=== PATIENT | male | born 1965 | race Caucasian/White ===

== ENCOUNTER 2021-02-10 11:54 | Inpatient (IN) | payer OTHER, BC ==
[~2021-02-10] VITALS: Ht 180.3 cm; Wt 125.0 kg
[~2021-02-10 11:54] MED LIST: CRUTCH2 USE; HYDACE5 PO; RXHYDACE PO
[2021-02-10] MEDS ORDERED: LOSARTAN-HCTZ1 EAC5 PO (12:50)
[2021-02-10] MEDS ORDERED: LEVSOD75 PO (12:50)
[2021-02-10 12:56] LABS: BASOPHILS ABSOLUTE AUTO 0.03 K/mm3 (0.00-0.23); BASOPHILS PERCENT AUTO 0 % (0-2); Base Excess Venous 1.2 mmol/L; Bicarbonate Venous 25.4 mmol/L (24.0-30.0); EOSINOPHILS PERCENT AUTO 0 % (0-6); Hematocrit 44.7 % (37.0-53.0); Hemoglobin 15.4 g/dL (13.5-17.5); IMMATURE GRAN ABSOLUTE AUTO 0.07 K/mm3 (0.00-0.10); IMMATURE GRAN PERCENT AUTO 1 % (0-1); LYMPHOCYTES ABSOLUTE AUTO 0.48 K/mm3 (0.84-5.20); LYMPHOCYTES PERCENT AUTO 5 % (21-46); MONOCYTES ABSOLUTE AUTO 0.34 K/mm3 (0.16-1.47); MONOCYTES PERCENT AUTO 3 % (4-13); Mean Corpuscular HGB 28.4 pg (26.0-34.0); Mean Corpuscular HGB Conc 34.5 g/dL (31.5-36.5); Mean Corpuscular Volume 82 fL (80-100); Mean Platelet Volume 10.3 fL (9.1-12.4); NEUTROPHILS ABSOLUTE AUTO 9.83 K/mm3 (1.96-9.15); NEUTROPHILS PERCENT AUTO 91 % (41-73); PCO2 Venous 35.2 mmHg (38-42); PO2 Venous 44.8 mmHg (38-42); Platelet Count 296 K/mm3 (150-400); RDW Coefficient Variation 13.4 % (11.7-14.2); RDW Standard Deviation 40.5 fL (35.1-46.3); Red Blood Cell Count 5.43 M/mm3 (4.30-5.90); White Blood Cell Count 10.75 K/mm3 (4.00-11.30); pH Blood Venous 7.46 (7.34-7.37)
[2021-02-10 13:24] LABS: Alanine Aminotransfer (ALT/SGP 30 U/L (12-78); Albumin, Blood 2.9 g/dL (3.4-5.0); Albumin/Globulin Ratio 0.6 (0.8-1.8); Alk Phos 68 U/L (50-136); Anion Gap 9 mmol/L (6-16); Aspartate Aminotrans (AST/SGOT 43 U/L (12-37); Bilirubin, Total 0.8 mg/dL (0.1-1.0); Blood Urea Nitrogen 19 mg/dL (8-24); Bun/Creatinine Ratio 19.4 (12.0-20.0); CO2, Blood 23 mmol/L (21-32); Calcium, Blood 8.2 mg/dL (8.5-10.1); Chloride, Blood 102 mmol/L (98-108); Creatinine, Blood 0.98 mg/dL (0.60-1.20); Globulin, Blood 4.8 g/dL (2.2-4.0); Glomerular Filtration Rate >60 (60-); Glucose, Blood 124 mg/dL (70-99); Potassium, Blood 3.8 mmol/L (3.5-5.5); Sodium, Blood 134 mmol/L (136-145); Total Protein, Blood 7.7 g/dL (6.4-8.2); Troponin I <0.015 ng/mL (0.000-0.040)
[2021-02-10 15:15] LABS: SARS-Cov-2 (COVID-19) PCR, MMC POSITIVE (NEGATIVE)
[2021-02-10] MEDS ORDERED: Flomax0.4 MG PO (16:35)
--- NOTE | 2021-02-10 19:25 | NUR ---
SHIFT SUMMARY ED ADMIT THIS EVENING. PATIENT CAME TO FLOOR ON NONREBREATHER MASK. PATIENT SATS IN LOW 80'S UPON ARRRIVAL. MAINTAINING OXYGEN SATURATION ABOVE 90% ON CPAP SETTING ON V60. SETTING 8 cmH20 AN 65% FI02. PATIENT LYING ON SIDE. SETTLED INTO ROOM. PATIENT REPORTS CPAP MASK DIFFICULT TO TOLERTATE. PATIENT EDUCATED ON BENEFITS OF CPAP AND RISKS OF REMOVING MASK WITHOUT ASSISTANCE.
[2021-02-11 02:28] LABS: BASOPHILS ABSOLUTE AUTO 0.03 K/mm3 (0.00-0.23); BASOPHILS PERCENT AUTO 0 % (0-2); EOSINOPHILS PERCENT AUTO 0 % (0-6); Hematocrit 43.3 % (37.0-53.0); Hemoglobin 14.7 g/dL (13.5-17.5); IMMATURE GRAN ABSOLUTE AUTO 0.08 K/mm3 (0.00-0.10); IMMATURE GRAN PERCENT AUTO 1 % (0-1); LYMPHOCYTES ABSOLUTE AUTO 0.47 K/mm3 (0.84-5.20); LYMPHOCYTES PERCENT AUTO 4 % (21-46); MONOCYTES ABSOLUTE AUTO 0.49 K/mm3 (0.16-1.47); MONOCYTES PERCENT AUTO 4 % (4-13); Mean Corpuscular HGB 28.1 pg (26.0-34.0); Mean Corpuscular HGB Conc 33.9 g/dL (31.5-36.5); Mean Corpuscular Volume 83 fL (80-100); NEUTROPHILS ABSOLUTE AUTO 10.52 K/mm3 (1.96-9.15); NEUTROPHILS PERCENT AUTO 91 % (41-73); Platelet Count 291 K/mm3 (150-400); RDW Coefficient Variation 13.5 % (11.7-14.2); RDW Standard Deviation 41.1 fL (35.1-46.3); Red Blood Cell Count 5.24 M/mm3 (4.30-5.90); White Blood Cell Count 11.59 K/mm3 (4.00-11.30)
[2021-02-11 02:46] LABS: Alanine Aminotransfer (ALT/SGP 29 U/L (12-78); Albumin, Blood 2.6 g/dL (3.4-5.0); Albumin/Globulin Ratio 0.6 (0.8-1.8); Alk Phos 70 U/L (50-136); Anion Gap 6 mmol/L (6-16); Aspartate Aminotrans (AST/SGOT 51 U/L (12-37); Bilirubin, Total 0.7 mg/dL (0.1-1.0); Blood Urea Nitrogen 24 mg/dL (8-24); Bun/Creatinine Ratio 24.4 (12.0-20.0); CO2, Blood 25 mmol/L (21-32); Calcium, Blood 8.1 mg/dL (8.5-10.1); Chloride, Blood 104 mmol/L (98-108); Creatinine, Blood 0.99 mg/dL (0.60-1.20); Globulin, Blood 4.5 g/dL (2.2-4.0); Glomerular Filtration Rate >60 (60-); Glucose, Blood 122 mg/dL (70-99); Potassium, Blood 3.6 mmol/L (3.5-5.5); Sodium, Blood 135 mmol/L (136-145); Total Protein, Blood 7.1 g/dL (6.4-8.2)
--- NOTE | 2021-02-11 03:57 | NUR ---
GLOBAL LOGISTICS ANALYST SUMMARY PT A/O X4, SLEPT WELL TONIGHT. DENIES PAIN. CONTINUES TO BE ON CPAP WIH 65% FIO2 SATTINGIN THE LOW 90'S. NO ACUTE CHANGES, CALL LIGHT WITHIN REACH. WILL CONTINUE TO MOINTOR.
--- NOTE | 2021-02-11 12:52 | NUR ---
Patient is lying on his side. Patient tells me that he is discouraged by the fact that he is "down because of this virus and having to stay in the hospital." He shares that he is worried about his , his work and his confucianism (patient attends [employer]). We talk about taking time to heal and recover and the good things in his life. I provide therapeutic listening and prayer. Patient responds well and show signs of an elevated mood and increased peace. I will continue to remain available to patient and family.
--- NOTE | 2021-02-11 17:25 | NUR ---
SHIFT SUMMARY pt remains alert and oriented, denies pain, however still experiencing dyspnea with rest and not able to tolerate activity. Pt has been prone most of the afternoon with biox sats 94% on 85%FiO2 on cpap. Pt desats to high 70s with activity. Pt able to make needs known. updated and requesting updates after every shift.
--- NOTE | 2021-02-12 04:19 | NUR ---
VIDEO NETWORK ENGINEER SUMMARY PT A/O X4, SLEPT WELL TONIGHT. DENIES PAIN. WEARS CPAP WITH 85% FIO2 SATTING IN THE LOW 90'S. PT BEEN PRONING ALL NIGHT. USES URINAL INDEPENDENTLY. DESATS QUICK WITH ACTIVITY. CALL LIGHT WITHIN REACH, WILL CONTINUE TO MONITOR.
[2021-02-12 05:26] LABS: BASOPHILS ABSOLUTE AUTO 0.03 K/mm3 (0.00-0.23); BASOPHILS PERCENT AUTO 0 % (0-2); EOSINOPHILS PERCENT AUTO 0 % (0-6); Hemoglobin 14.9 g/dL (13.5-17.5); IMMATURE GRAN ABSOLUTE AUTO 0.16 K/mm3 (0.00-0.10); IMMATURE GRAN PERCENT AUTO 1 % (0-1); LYMPHOCYTES PERCENT AUTO 4 % (21-46); MONOCYTES ABSOLUTE AUTO 0.73 K/mm3 (0.16-1.47); MONOCYTES PERCENT AUTO 5 % (4-13); Mean Corpuscular HGB Conc 33.1 g/dL (31.5-36.5); Mean Corpuscular Volume 84 fL (80-100); Mean Platelet Volume 10.5 fL (9.1-12.4); NEUTROPHILS ABSOLUTE AUTO 13.69 K/mm3 (1.96-9.15); NEUTROPHILS PERCENT AUTO 90 % (41-73); Platelet Count 346 K/mm3 (150-400); RDW Coefficient Variation 13.4 % (11.7-14.2); RDW Standard Deviation 41.6 fL (35.1-46.3); Red Blood Cell Count 5.33 M/mm3 (4.30-5.90); White Blood Cell Count 15.21 K/mm3 (4.00-11.30)
[2021-02-12 06:24] LABS: Alanine Aminotransfer (ALT/SGP 39 U/L (12-78); Alk Phos 79 U/L (50-136); Anion Gap 6 mmol/L (6-16); Aspartate Aminotrans (AST/SGOT 47 U/L (12-37); Bilirubin, Total 0.6 mg/dL (0.1-1.0); Blood Urea Nitrogen 32 mg/dL (8-24); Bun/Creatinine Ratio 37.8 (12.0-20.0); CO2, Blood 25 mmol/L (21-32); Calcium, Blood 8.1 mg/dL (8.5-10.1); Chloride, Blood 106 mmol/L (98-108); Creatinine, Blood 0.85 mg/dL (0.60-1.20); Glomerular Filtration Rate >60 (60-); Glucose, Blood 134 mg/dL (70-99); Potassium, Blood 3.9 mmol/L (3.5-5.5); Sodium, Blood 137 mmol/L (136-145); Total Protein, Blood 7.2 g/dL (6.4-8.2)
[2021-02-12 06:31] LABS: Albumin, Blood 2.3 g/dL (3.4-5.0); Albumin/Globulin Ratio 0.5 (0.8-1.8); Globulin, Blood 4.9 g/dL (2.2-4.0)
--- NOTE | 2021-02-12 18:35 | NUR ---
PT IS AO X 4, PT IS COVID POSITIVE, PT IS ON CPAP 75% FIO2 SAT IN THE HIGH 90'S THOUGHOUT SHIFT, PT BEEN PRONING OR STAYING ON THE RIGHT SIDE DURING THE DAY,PT HAVE NS RUNING, PT IS IN BED, BED IN LOW POSTION,CALL LIGHT WITHIN REACH WILL CONTINUE TO MONITOR.
[2021-02-13 04:50] LABS: BASOPHILS ABSOLUTE AUTO 0.02 K/mm3 (0.00-0.23); BASOPHILS PERCENT AUTO 0 % (0-2); EOSINOPHILS PERCENT AUTO 0 % (0-6); Hematocrit 40.5 % (37.0-53.0); Hemoglobin 13.6 g/dL (13.5-17.5); IMMATURE GRAN ABSOLUTE AUTO 0.11 K/mm3 (0.00-0.10); IMMATURE GRAN PERCENT AUTO 1 % (0-1); LYMPHOCYTES ABSOLUTE AUTO 0.44 K/mm3 (0.84-5.20); LYMPHOCYTES PERCENT AUTO 3 % (21-46); MONOCYTES ABSOLUTE AUTO 0.68 K/mm3 (0.16-1.47); MONOCYTES PERCENT AUTO 4 % (4-13); Mean Corpuscular HGB Conc 33.6 g/dL (31.5-36.5); Mean Corpuscular Volume 84 fL (80-100); Mean Platelet Volume 10.6 fL (9.1-12.4); NEUTROPHILS ABSOLUTE AUTO 15.37 K/mm3 (1.96-9.15); NEUTROPHILS PERCENT AUTO 93 % (41-73); Platelet Count 389 K/mm3 (150-400); RDW Coefficient Variation 13.3 % (11.7-14.2); RDW Standard Deviation 41.1 fL (35.1-46.3); Red Blood Cell Count 4.85 M/mm3 (4.30-5.90); White Blood Cell Count 16.62 K/mm3 (4.00-11.30)
[2021-02-13 05:14] LABS: Alanine Aminotransfer (ALT/SGP 40 U/L (12-78); Albumin, Blood 2.2 g/dL (3.4-5.0); Albumin/Globulin Ratio 0.5 (0.8-1.8); Alk Phos 72 U/L (50-136); Anion Gap 5 mmol/L (6-16); Aspartate Aminotrans (AST/SGOT 43 U/L (12-37); Bilirubin, Total 0.8 mg/dL (0.1-1.0); Blood Urea Nitrogen 32 mg/dL (8-24); Bun/Creatinine Ratio 37.6 (12.0-20.0); CO2, Blood 27 mmol/L (21-32); Calcium, Blood 8.1 mg/dL (8.5-10.1); Chloride, Blood 106 mmol/L (98-108); Creatinine, Blood 0.85 mg/dL (0.60-1.20); Globulin, Blood 4.1 g/dL (2.2-4.0); Glomerular Filtration Rate >60 (60-); Glucose, Blood 127 mg/dL (70-99); Sodium, Blood 138 mmol/L (136-145); Total Protein, Blood 6.3 g/dL (6.4-8.2)
--- NOTE | 2021-02-13 05:32 | NUR ---
PT RESTING IN BED MAKING NO COMPLAINTS AT THIS TIME. REMAINS ALERT AND ORIENTED X4, ANXIOUS, ON CPAP WITH SATS 90 AND ABOVE. PT STATES HE HAS NOT ATE IN A FEW DAYS OTHER THAN A FEW CRACKERS TWO DAYS AGO. REFUSED HELP WITH SNACKS HE WAS WORRIED ABOUT TAKING OF HIS MASK FOR TOO LONG. NS RUNNING AND WNL. PT IS DRINKNING FLUIDS. WILL CONTINUE TO MONITOR.
--- NOTE | 2021-02-13 17:25 | NUR ---
SHIFT SUMMARY 55 YR MALE ADMITTED WIHT COVID 19. PT ON CPAP SATS>90. TRIAL PT ON AIRVOW AT 40L/85% AND PT SATS DROPPED TO LOW 80'S, RESUMED CPAP AND PT RECOVERED TO SATS>90. REVIEWED WITH MD AND NEW ORDERS TO INCREASE DECADRON RECIEVED TODAY. PT HAS BEEN ENCOURAGED TO LAY PRONE AND HAS DONE THAT MOST OF TODAY, PT TOLERATES FAIRLY BUT AGREES TO REMAIN PRONE. SPOKE WITH PTS TODAY TO OFFER UPDATE AND PAST MESSAGE ON TO MD WIFES REQUEST TO SPEAK WITH MD. NO OTHER ACUTE CHANGES THIS SHIFT
--- NOTE | 2021-02-14 05:14 | NUR ---
0400 PT TRANSFERED TO PCU. PT REPORT GIVEN TO LUIS ACHARYA RN.
--- NOTE | 2021-02-14 05:20 | NUR ---
MED FLOOR SUMMARY PT WAS DOING WELL UNTIL ATTEMPTED TO USE BED SIDE COMMODE. PT REMAINED ON CPAP WHILE USING COMMODE. PT BECAME SEVERELY SHORT OF BREATH AND ANXIETY INCREASED. PT RESP. RATE WAS NOTED TO BE IN 50'S. PT WAS GIVEN ORDERED ATIVAN WITH LITTLE RELIEF. DR BASILIO CALLED AND HE ORDERED PT MORPHINE AND ADDITIONAL ATIVAN. DR BASILIO ORDERED TO TRANSFER PT IF NEW MEDS DO NOT HELP. DR BASILIO STATED TO HAVE PT PLACED ON PRECEDEX. PT WAS TX ORDERED AND RESPONDED WELL FOR SHORT PERIOD. RT WAS CALLED AND ASSESSED PT. RT AGREED THAT PT NEEDED TO BE TRANSFERRED. PT TRANSFERED TO PCU 13 WITH RT AND SECOND RN.
[2021-02-14 05:31] LABS: Source, Urine Catheter
--- NOTE | 2021-02-14 05:31 | NUR ---
0515 PT CALLED AND UPDATED ON PT STATUS. INFORMED OF PT BEING MOVED TO [facility].
[2021-02-14 05:37] LABS: Appearance, Urine Clear (Clear); Bilirubin, Urine Neg (Neg); Blood, Urine Neg (Neg); Color, Urine Amber (P-Yellow); Glucose Qualitative, Urine Neg (Neg); Ketones, Urine Neg (Neg); Leukocyte Esterase, Urine 1+ (Neg); Nitrite, Urine Neg (Neg); Protein, Urine 2+ (Neg); Specific Gravity, Urine 1.015 (1.003-1.022); Urobilinogen, Urine NORM (Normal)
[2021-02-14 05:58] LABS: Bacteria Few /hpf; Red Blood Cells, Urine 0-2 /hpf (0-2); Squamous Epithelial Cells Not Seen /hpf (Few); White Blood Cells, Urine 0-2 /hpf (0-5)
[2021-02-14 06:00] LABS: BASOPHILS ABSOLUTE AUTO 0.02 K/mm3 (0.00-0.23); BASOPHILS PERCENT AUTO 0 % (0-2); EOSINOPHILS PERCENT AUTO 0 % (0-6); Hematocrit 40.7 % (37.0-53.0); Hemoglobin 13.8 g/dL (13.5-17.5); IMMATURE GRAN ABSOLUTE AUTO 0.13 K/mm3 (0.00-0.10); IMMATURE GRAN PERCENT AUTO 1 % (0-1); LYMPHOCYTES ABSOLUTE AUTO 0.26 K/mm3 (0.84-5.20); LYMPHOCYTES PERCENT AUTO 2 % (21-46); MONOCYTES PERCENT AUTO 4 % (4-13); Mean Corpuscular HGB 28.5 pg (26.0-34.0); Mean Corpuscular HGB Conc 33.9 g/dL (31.5-36.5); Mean Corpuscular Volume 84 fL (80-100); Mean Platelet Volume 10.5 fL (9.1-12.4); NEUTROPHILS ABSOLUTE AUTO 13.57 K/mm3 (1.96-9.15); NEUTROPHILS PERCENT AUTO 94 % (41-73); Platelet Count 420 K/mm3 (150-400); RDW Coefficient Variation 13.5 % (11.7-14.2); RDW Standard Deviation 42.2 fL (35.1-46.3); Red Blood Cell Count 4.85 M/mm3 (4.30-5.90); White Blood Cell Count 14.48 K/mm3 (4.00-11.30)
[2021-02-14 06:16] LABS: Alanine Aminotransfer (ALT/SGP 44 U/L (12-78); Albumin, Blood 2.1 g/dL (3.4-5.0); Albumin/Globulin Ratio 0.5 (0.8-1.8); Alk Phos 74 U/L (50-136); Anion Gap 5 mmol/L (6-16); Aspartate Aminotrans (AST/SGOT 45 U/L (12-37); Bilirubin, Total 0.9 mg/dL (0.1-1.0); Blood Urea Nitrogen 19 mg/dL (8-24); CO2, Blood 25 mmol/L (21-32); Calcium, Blood 8.1 mg/dL (8.5-10.1); Chloride, Blood 112 mmol/L (98-108); Creatinine, Blood 0.66 mg/dL (0.60-1.20); Globulin, Blood 4.1 g/dL (2.2-4.0); Glomerular Filtration Rate >60 (60-); Glucose, Blood 137 mg/dL (70-99); Potassium, Blood 4.3 mmol/L (3.5-5.5); Sodium, Blood 142 mmol/L (136-145); Total Protein, Blood 6.2 g/dL (6.4-8.2)
--- NOTE | 2021-02-14 07:08 | NUR ---
TRANSFER/SHIFT SUMMARY PT TRANSFERED TO PCU 13 AN ICU STATUS PT @ APPROX 0415. PT ALERT AND ORIENTED TO SELF, LOCATION, SITUATION AND FOLLOWING COMMANDS. PT ON CPAP 14 FiO2 85% WITH SpO2 READING 84, INCREASED FiO2 TO 100% WITH IMPROVEMENT TO 86%, RT NOTIFIED AND CHANGED CPAP SETTINGS TO 17, FiO2 REMAINS 100% WITH O2 SATURATIONS OF 87-89%. RESPIRATORY RATE INITIALLY 55-60, PRECEDEX GTT INITITIATED AND RATE DECREASED TO 40-45. AZAR PLACED AND SPECIMEN SENT TO LAB. PT ABLE TO TURN SELF IN BED. UPDATED DR BASILIO ON PTS STATUS, NEW CONSULT FOR PULMONOLOGY.
[2021-02-14 10:25] LABS: PCO2 Arterial 35.3 mmHg (35-45); PO2 Arterial 50.9 mmHg (80-100); pH Blood Arterial 7.46 (7.35-7.45)
--- NOTE | 2021-02-14 11:14 | NUR ---
TRANSFER DR. GLOVER CAME AND SAW PT AT THE BEDSIDE. PT CONTINUES TO SAT 86-90 ON CPAP PRESSURE OF 17 FIO2 100%. DECISION MADE TO MOVE PT TO ICU 1. REPORT CALLED TO BRIANNA LAWS. PT TRANSFERRED WITH RT AND 2 RNS. PT TOLERATED TRANSFER WELL. PT'S [place] CALLED AND GIVEN UPDATE ON TRANSFER AND PLAN TO INTUBATE PT IN ICU.
--- NOTE | 2021-02-14 12:05 | NUR ---
*PT EMERGENTLY TRANSFERED TO 1CU 1 @1050.* RR 50'S-PT ORTHOPNEIC AND VERY DYSPNEIC. ABG DONE PRIOR TO TRANSFER TO ICU-DR. GLOVER REVIEWED RESULTS. PT HYPOXIC ON CPAP-FIO2 !00% 1104: MED WITH ETOMIDATE 20 MG IVP X 1 IN PREP FOR RSI. 1106: PT INTUBATED WITH 8.0 ETT/26@ TEETH-PROPOFOL DRIP INITIATED @ 50 MCG/KG/MIN. 1108:PT ASYNCHRONOUS WITH VENT-MED WITH ROCURONIUM 20 MG IVP X 1. PROPOFOL 4 CC IVP X1 GIVEN BY DR. GLOVER. 1109: PT STILL DIFFICULT TO VENTILATE-MED WITH VERSED 4 MG IVP X 1. VENT: AC 16, TV 470, PEEP 18, FIO2 100% 1125: PT CONTINUES TO BE ASYNCHRONOUS WITH VENT-MED WITH ATIVAM 2MG IVP X 1. 1133: PT STILL NOT SYNCHRONOUS WITH VENT-MED WITH FENTANYL [address] GLOVER PREPARING TO PLACE CENTAL LINE. 1150: PEAK PRESSURES 50'S. PT MED WITH ROCURONIUM 40 MCG IVP X 1. 1151: PT MED WITH VERSED 2 MG IVP X1. 1200: ROCURONIUM STARTED @ 5 MCG/KG/MIN. TO4 0/4 PRIOR TO INITIATION-DUE TO SECOND DOSE OF PARALYLTIC. BIS MONITOR PLACED. 1220: ETT, RIJ CENTRAL LINE, AND OGT PLACEMENT CONFIRMED BY CXR-PLAN TO PRONE LAURA.
--- NOTE | 2021-02-14 14:31 | NUR ---
FENTANYL GTT STARTED AT 25MCG/HR PER DR GLOVER. RAINA GTT AT 5MCG, TO4 REMAINS 0/4. PRECEDEX INCREASED TO 0.4MCG, PROPOFOL DECREASED TO 70MCG, WILL CONT TO DECREASE TOLERATED. BIS 36.
[2021-02-14 15:59] LABS: PO2 Arterial 156 mmHg (80-100)
[2021-02-14 16:00] LABS: PCO2 Arterial 71 mmHg (35-45); pH Blood Arterial 7.21 (7.35-7.45)
--- NOTE | 2021-02-14 19:46 | NUR ---
Assumed care. Report recieved from tonyakjhoana RN. Pt proned in bed on ventilator, paralyzed and sedated. Ventilator settings: AC/VC 20/TV470/PEEP16/70% Fi02. OG tube in place, draining to low intermittent suction. Pt has R/central line, R/ac IV and R/hand IV. Pump settings are as follows: Rocuronium at 5 mcg/kg/min, propofol at 70 mcg/kg/min, Precedex at 0.4 mcg/kg/hr, Fentanyl STUCCO PLASTERER 25 mcg/hr, NS 100 ml/hr. Asher catheter in place, draining jacki urine w/pink sediment. No acute needs noted at this time, will continue to monitor.
[2021-02-15 04:18] LABS: Hematocrit 40.8 % (37.0-53.0); Mean Corpuscular HGB 28.3 pg (26.0-34.0); Mean Corpuscular HGB Conc 31.9 g/dL (31.5-36.5); Mean Platelet Volume 10.4 fL (9.1-12.4); Platelet Count 350 K/mm3 (150-400); RDW Coefficient Variation 14.1 % (11.7-14.2); RDW Standard Deviation 45.7 fL (35.1-46.3); Red Blood Cell Count 4.59 M/mm3 (4.30-5.90); White Blood Cell Count 10.64 K/mm3 (4.00-11.30)
[2021-02-15 04:20] LABS: Mean Corpuscular Volume 89 fL (80-100)
[2021-02-15 04:36] LABS: Alanine Aminotransfer (ALT/SGP 34 U/L (12-78); Albumin, Blood 1.8 g/dL (3.4-5.0); Albumin/Globulin Ratio 0.4 (0.8-1.8); Alk Phos 60 U/L (50-136); Anion Gap 1 mmol/L (6-16); Aspartate Aminotrans (AST/SGOT 22 U/L (12-37); Bilirubin, Total 0.6 mg/dL (0.1-1.0); Blood Urea Nitrogen 17 mg/dL (8-24); Bun/Creatinine Ratio 24.5 (12.0-20.0); CO2, Blood 29 mmol/L (21-32); Calcium, Blood 7.8 mg/dL (8.5-10.1); Chloride, Blood 113 mmol/L (98-108); Creatinine, Blood 0.69 mg/dL (0.60-1.20); Glomerular Filtration Rate >60 (60-); Glucose, Blood 220 mg/dL (70-99); Potassium, Blood 4.9 mmol/L (3.5-5.5); Sodium, Blood 143 mmol/L (136-145); Total Protein, Blood 5.8 g/dL (6.4-8.2)
[2021-02-15 05:37] LABS: PCO2 Arterial 55.3 mmHg (35-45); PO2 Arterial 67.6 mmHg (80-100); pH Blood Arterial 7.33 (7.35-7.45)
--- NOTE | 2021-02-15 06:13 | NUR ---
Shift summary. Pt continues on ventilator: AC/VC 20/TV470/peep16/Fi02 50%. OG tube in place. R/cental IJ, left AC IV, pump settings: Rocuronium 5 mcg/kg/min, propofol 60 mcg/kg/min, precedex 0.4 mcg/kg/hr, fentanyl office executive 25 mcg/hr, NS 100 ml/hr. Asher catheter in place, draining dark jacki urine with pink sediment. Patient maintained stable vitals throughout shift, propofol titrated down from 70 to 60. Fi02 titrated down to 50%, 02 sats maintained above 90%. See shift assessment for details. Will continue to monitor and report off to dayshift RN.
--- NOTE | 2021-02-15 07:34 | NUR ---
CARE OF PT ASSUMED AT 070. PT SEDATED ON PROPOFOL AT 60MCG, PRECEDEX AT 0.4MCG, AND FENT GTT AT 25MCG/HR FOR MECH VENT WAYNE. BIS READING 40'S. PT PARALYZED W RAINA AT 5MCG/KG/MIN, TO4 0/4. PT IS SYNCHONIZED W VENT, NO BREATHING OVER VENT, ABSENT COUGH, GAG. AC/VC20,470,50%,16.
--- NOTE | 2021-02-15 11:08 | NUR ---
PT'S GIVEN UPDATE VIA PHONE.
--- NOTE | 2021-02-15 14:03 | NUR ---
TROPONIN WNL, EKG COMPLETED, SHOWS SINUS BELLA.
--- NOTE | 2021-02-15 18:54 | NUR ---
review of pt with nursing will update tomorrow and do sofa score.
--- NOTE | 2021-02-15 19:02 | NUR ---
NS DECREASED TO 50, NO OTHER CHANGES TO GTT'S. NO CHANGES TO VENT. SATS 92%. DR DONIS TO UPDATE .
--- NOTE | 2021-02-15 21:39 | NUR ---
Assumed care. Report recieved from robel REED. Pt continues on ventilator, settings: AC/VC 20, TV470, peep16 50% Fi02. OG tube in place, connected to low intermittent suction. R/IJ central line in place, IV access R/AC. IV pump settings: Rocuronium 5 mcg/kg/min, propofol 60 mcg/kg/min, precedex 0.4 mcg/kg/hr, fentanty banking services advisor 25 mcg/hr, NS 50 ml/hr. Asher catheter in place, draining dark urine with pink sediment. No acute needs noted at this time, will continue to monitor.
[2021-02-16 03:56] LABS: BASOPHILS ABSOLUTE AUTO 0.02 K/mm3 (0.00-0.23); BASOPHILS PERCENT AUTO 0 % (0-2); EOSINOPHILS PERCENT AUTO 0 % (0-6); Hematocrit 40.3 % (37.0-53.0); Hemoglobin 12.7 g/dL (13.5-17.5); IMMATURE GRAN ABSOLUTE AUTO 0.12 K/mm3 (0.00-0.10); IMMATURE GRAN PERCENT AUTO 2 % (0-1); LYMPHOCYTES ABSOLUTE AUTO 0.27 K/mm3 (0.84-5.20); LYMPHOCYTES PERCENT AUTO 3 % (21-46); MONOCYTES ABSOLUTE AUTO 0.27 K/mm3 (0.16-1.47); MONOCYTES PERCENT AUTO 3 % (4-13); Mean Corpuscular HGB 27.9 pg (26.0-34.0); Mean Corpuscular HGB Conc 31.5 g/dL (31.5-36.5); Mean Corpuscular Volume 88 fL (80-100); Mean Platelet Volume 10.3 fL (9.1-12.4); NEUTROPHILS ABSOLUTE AUTO 7.41 K/mm3 (1.96-9.15); NEUTROPHILS PERCENT AUTO 92 % (41-73); Platelet Count 383 K/mm3 (150-400); RDW Coefficient Variation 14.4 % (11.7-14.2); RDW Standard Deviation 46.5 fL (35.1-46.3); Red Blood Cell Count 4.56 M/mm3 (4.30-5.90); White Blood Cell Count 8.09 K/mm3 (4.00-11.30)
[2021-02-16 04:20] LABS: Alanine Aminotransfer (ALT/SGP 30 U/L (12-78); Albumin, Blood 1.8 g/dL (3.4-5.0); Albumin/Globulin Ratio 0.5 (0.8-1.8); Alk Phos 53 U/L (50-136); Anion Gap 0 mmol/L (6-16); Aspartate Aminotrans (AST/SGOT 15 U/L (12-37); Bilirubin, Total 0.4 mg/dL (0.1-1.0); Blood Urea Nitrogen 16 mg/dL (8-24); CO2, Blood 30 mmol/L (21-32); Chloride, Blood 113 mmol/L (98-108); Creatinine, Blood 0.67 mg/dL (0.60-1.20); Globulin, Blood 3.7 g/dL (2.2-4.0); Glomerular Filtration Rate >60 (60-); Glucose, Blood 175 mg/dL (70-99); Phosphorus, Blood 2.4 mg/dL (2.5-4.9); Potassium, Blood 4.6 mmol/L (3.5-5.5); Sodium, Blood 143 mmol/L (136-145); Total Protein, Blood 5.5 g/dL (6.4-8.2)
--- NOTE | 2021-02-16 06:54 | NUR ---
Shift summary. Pt continues on ventilator, proned, sedated and paralyzed. Pt vent settings: AC/VC 20/tv470/peep12/50%Fi02. OG tube in place, low int suction. R/IJ central line in place, R/AC IV access. Pump settings are as follows: Rocuronium 5 mcg/kg/min, Propofol 50 mcg/kg/min, Precedex 0.4 mcg/kg/hr, Fentanyl DIRECTOR TOXICOLOGY 25 mcg/hr, NS 50 ml/hr. Asher catheter in place, draining dark/green urine w/pink sediment. See shift assessment for details. Will continue to monitor and report off to dayshift RN.
--- NOTE | 2021-02-16 09:41 | NUR ---
Care Assumed 0700 Vent settings: AC VC 20/470/10/50%, PEEP WAS AT [address] BOBO. PER PROVIDER ROCURONIUM PLACED ON SB, initally was at 5 mcg/kg/min. NS @ [address] RODRÍGUEZ[address] PROPOFOL GTT 50 MCG/KG/MIN, PRECEDEX 0.4 MCG/KG/HR, AND FENTANYL WELDING SPECIALIST @ 25 MCG/HR. Asher in place with 100 ml of dark cloudy yellow urine.
--- NOTE | 2021-02-16 10:15 | NUR ---
TF started VHP started at 10 ml/hr per order, will advance per order. BT hypoactive.
--- NOTE | 2021-02-16 16:20 | NUR ---
Update- Pt unproned around 1200, successfully, pt tolerated well. Vent settings: AC 20/470/10/50% initally. FIO2 increased to 85%, 10 mins ago by RT due to SPO2 decreasing to 85's. Propofol GTT 50 mcg/kg/min and Precedex placed on SB due to HR in the 40's. At 1600 restarted due to pt frequently coughing and not tolerating vent, Precedex 0.4 mcg/kg/hr. Pt opened eyes once but not tracking or following commands. SWB in place.
--- NOTE | 2021-02-16 18:04 | NUR ---
Shift Summary Vent Settin/470/10/80%, FIO2 > 90%. Propofol GTT 50 mcg/kg/min and Precedex 0.4 mcg/kg/hr and Fentanyl 25 mcg/hr. Pt responds to noxious stumli. Asher in place with dark green output. OG tube in place with VHP @ 10 ml/hr. VSS. Will report to nightshift.
--- NOTE | 2021-02-16 23:00 | NUR ---
ASSUMED CARE AT 1900 PT LAYING IN BED INTUBATED WITH VENT SETTINGS AC 20, TF 470, PEEP 10, FIO2 80%; SMALL AMOUNT OF ETT AND ORAL SECREATIONS. PT MINIMALLY REACTIVE TO PAINFUL STIMULI; GAG AND COUGH WEAK; SEDATED WITH PROPOFOL INFUSING AT 55MCG/KG/MIN; PRECEDEX INFUSING AT 0.4MCG/KG/HR. AFEBRILE. HR 60'S. SBP 100-110; MAP >65. VHP INFUSING AT 20ML/HR WITH 30ML WATER FLUSHES; MINIMAL RESIDUALS. AZAR IN PLACE AND DRAINING TO GRAVITY. CENTRAL LINE IN RT IJ DRESSING C/D/I. SEE SHIFT ASSESSMENT FOR FULL ASSESSMENT.
[2021-02-17 05:11] LABS: Hematocrit 41.7 % (37.0-53.0); Hemoglobin 13.2 g/dL (13.5-17.5); Mean Corpuscular HGB 28.1 pg (26.0-34.0); Mean Corpuscular HGB Conc 31.7 g/dL (31.5-36.5); Mean Corpuscular Volume 89 fL (80-100); Mean Platelet Volume 10.4 fL (9.1-12.4); Platelet Count 450 K/mm3 (150-400); RDW Coefficient Variation 14.2 % (11.7-14.2); RDW Standard Deviation 46.2 fL (35.1-46.3); White Blood Cell Count 10.51 K/mm3 (4.00-11.30)
[2021-02-17 05:37] LABS: Albumin, Blood 1.8 g/dL (3.4-5.0); Anion Gap 1 mmol/L (6-16); Blood Urea Nitrogen 22 mg/dL (8-24); Bun/Creatinine Ratio 30.2 (12.0-20.0); CO2, Blood 32 mmol/L (21-32); Chloride, Blood 111 mmol/L (98-108); Creatinine, Blood 0.73 mg/dL (0.60-1.20); Glomerular Filtration Rate >60 (60-); Glucose, Blood 173 mg/dL (70-99); Magnesium, Blood 2.6 mg/dL (1.6-2.4); Phosphorus, Blood 3.4 mg/dL (2.5-4.9); Potassium, Blood 4.3 mmol/L (3.5-5.5); Sodium, Blood 144 mmol/L (136-145)
[2021-02-17 05:57] LABS: BAND PERCENT MAN 2 % (0-8); BASOPHILS PERCENT MAN 0 % (0-2); EOSINOPHILS PERCENT MAN 0 % (0-6); LYMPHOCYTES ABSOLUTE MAN 0.21 K/mm3 (0.84-5.20); LYMPHOCYTES PERCENT MAN 2 % (21-46); MONOCYTES ABSOLUTE MAN 0.31 K/mm3 (0.16-1.47); MONOCYTES PERCENT MAN 3 % (4-13); MYELOCYTE PERCENT MAN 1 % (0-0); NEUTROPHILS ABSOLUTE MAN 9.87 K/mm3 (1.96-9.15); SEG NEUTROPHILS PERCENT MAN 92 % (41-73); TOTAL CELLS COUNTED 100
--- NOTE | 2021-02-17 06:31 | NUR ---
END OF SHIFT SUMMARY NO ACUTE EVENTS OVERNIGHT. PT CONT TO BE INTUBATED WITH VENT SETTINGS AC 20, TV 470, PEEP 10, FIO2 70%. PT HAVING MORE SPONTANIOUS MOVEMENT AND COUGHING AGAINST VENT, NOT FOLLOWING DIRECTIONS; PROPOFOL INFUSING AT 60MCG/KG/MIN; PRECEDEX INFUSING AT 0.4MCG/KG/HR; FENTANYL INFUSING AT 25MCG/HR. AFEBRILE. HR 50'S. SBP 100-160. VHP INFUSING VIA OG AT 30ML/HR (GOAL) WITH 30ML WATER FLUSHES Q4HR. AZAR IN PLACE AND DRAINING TO GRAVITY. RT IJ CENTRAL LINE DRESSING C/D/I. WILL REPORT TO AM RN WHEN AVAILABLE.
--- NOTE | 2021-02-17 08:25 | NUR ---
07:00 Assumed pt. care with Jim REED. Pt. found in prone position intubated with vent. settings as follow, AC/VC O2 @ 65%, TV-470, PEEP-10, Rate-20. RIJ in place patent, dressing CDI. Asher patent draining to gravity. NG in place patent by auscultation, with TF-Vital HP @ 30 mls./hr which is goal. Pt. sedated with Precedex @ 0.4, Propofol @ 60, and Fentanyl @ 25. See assessment herein for more detail.
--- NOTE | 2021-02-17 08:35 | NUR ---
07:00 Assumed pt. care with Jim REED. Pt. found in prone position intubated with vent. settings as follow, AC/VC O2 @ 65%, TV-470, PEEP-10, Rate-20. RIJ in place patent, dressing CDI. Asher patent draining to gravity. NG in place patent by auscultation, with TF-Vital HP @ 30 mls./hr which is goal. Pt. sedated with Precedex @ 0.4 mcg/kg/hr, Propofol @ 60 mcg/kg/min, and Fentanyl @ 25 mcg/hr. See assessment herein for more detail.
--- NOTE | 2021-02-17 11:37 | NUR ---
when going into room sedation ran out and restarted Propofol at 60 mcg/kg/min and he is still clinching down. Noticed bite block came loose and pulled back with hemostats from back of throat. He was breathing by tube and unable to add air to balloon. Called RT to assess and also notified Dr Nguyen and Dr Del Toro for possible re-intubation. We decided to unprone and re-assess. . RT re- secured at 26cm at lip and secured bite block and pressures and sats increaseing. Added one time 100 mcg Fentanyl and increased RETAIL GIFT CARD MERCHANDISING to 50 mcg/hr continuous.
--- NOTE | 2021-02-17 14:35 | NUR ---
Spiritual care visit conducted. I provide prayer for patient. No visible change occurs. I will continue to remain available to patient and family
--- NOTE | 2021-02-17 17:51 | NUR ---
Shift Summary Pt. vent. settings as follow, AC/VC O2 @ 80%, TV-470, PEEP-12, Rate-20. ETT this day was advaned to 29 @ lip. RIJ in place patent, dressing CDI. Asher patent draining to gravity. NG in place patent by auscultation, with TF-Vital HP @ 3o mls./hr which is goal. Pt. paralyzed with Rocuronium around 13:00 today and Rocuronium is at 4 mcg/kg/min at this time. Pt. sedated with Precedex @ 0.7 mcg/kg/hr, Propofol @ 45 mcg/kg/min, and Fentanyl @ 50 mcg/hr. UO was greater than 1000 ml this shift. TOF 1/4 at this time. See VS for shift.
--- NOTE | 2021-02-17 20:00 | NUR ---
CARE TAKEN OVER BY CONGRESSIONAL AIDE. REPORT GIVEN BY ELANA REED. ASSESSMENT PER SURGE CHARTING.
--- NOTE | 2021-02-18 02:39 | NUR ---
RN notifed Dr. Garcia of TF - currently at half rate per TF protocol for high residuals. Patient also has no BM since 02/07 per charting history. Patient on lele gtt with hypoactive bowel sounds. RN asks Dr. Garcia if he would like anything in addition to the PRN Milk of Mag. Per Dr. Garcia, okay to give the PRN Milk of Mag now. Call back in approx one hour if no BM/gas for additional interventions.
[2021-02-18 04:23] LABS: BASOPHILS ABSOLUTE AUTO 0.03 K/mm3 (0.00-0.23); BASOPHILS PERCENT AUTO 0 % (0-2); EOSINOPHILS ABSOLUTE AUTO 0.22 K/mm3 (0.00-0.68); EOSINOPHILS PERCENT AUTO 2 % (0-6); Hematocrit 43.3 % (37.0-53.0); Hemoglobin 13.6 g/dL (13.5-17.5); IMMATURE GRAN ABSOLUTE AUTO 0.34 K/mm3 (0.00-0.10); IMMATURE GRAN PERCENT AUTO 4 % (0-1); LYMPHOCYTES ABSOLUTE AUTO 0.58 K/mm3 (0.84-5.20); LYMPHOCYTES PERCENT AUTO 6 % (21-46); MONOCYTES ABSOLUTE AUTO 0.35 K/mm3 (0.16-1.47); MONOCYTES PERCENT AUTO 4 % (4-13); Mean Corpuscular HGB 28.2 pg (26.0-34.0); Mean Corpuscular HGB Conc 31.4 g/dL (31.5-36.5); Mean Corpuscular Volume 90 fL (80-100); Mean Platelet Volume 10.3 fL (9.1-12.4); NEUTROPHILS PERCENT AUTO 85 % (41-73); Platelet Count 449 K/mm3 (150-400); RDW Coefficient Variation 14.5 % (11.7-14.2); Red Blood Cell Count 4.83 M/mm3 (4.30-5.90); White Blood Cell Count 9.82 K/mm3 (4.00-11.30)
--- NOTE | 2021-02-18 04:29 | NUR ---
Attempt made to call Dr. Garcia. No answer. Patient has not yet had BM.
--- NOTE | 2021-02-18 04:42 | NUR ---
Dr. Garcia called back. Notified that there has been no response from Milk of Magnesia. Dr. Garcia notified of order for suppository since 02/16 but appears not be given per charting. Dr. Garcia states to give this now and call back/pass along to dayshift if responsive to suppository. If no BM/gas from suppository then Dr. Garcia recommends abdominal Xray.
[2021-02-18 04:55] LABS: Alanine Aminotransfer (ALT/SGP 66 U/L (12-78); Albumin, Blood 1.8 g/dL (3.4-5.0); Albumin/Globulin Ratio 0.4 (0.8-1.8); Alk Phos 52 U/L (50-136); Anion Gap 3 mmol/L (6-16); Aspartate Aminotrans (AST/SGOT 55 U/L (12-37); Bilirubin, Direct 0.3 mg/dL (0.0-0.3); Bilirubin, Indirect 0.2 mg/dL (0.1-0.7); Bilirubin, Total 0.5 mg/dL (0.1-1.0); Blood Urea Nitrogen 26 mg/dL (8-24); Bun/Creatinine Ratio 33.5 (12.0-20.0); CO2, Blood 33 mmol/L (21-32); Calcium, Blood 8.3 mg/dL (8.5-10.1); Chloride, Blood 109 mmol/L (98-108); Creatinine, Blood 0.78 mg/dL (0.60-1.20); Globulin, Blood 4.1 g/dL (2.2-4.0); Glomerular Filtration Rate >60 (60-); Glucose, Blood 114 mg/dL (70-99); Magnesium, Blood 2.6 mg/dL (1.6-2.4); Potassium, Blood 4.2 mmol/L (3.5-5.5); Sodium, Blood 145 mmol/L (136-145); Total Protein, Blood 5.9 g/dL (6.4-8.2); Triglycerides 138 mg/dL (30-160)
--- NOTE | 2021-02-18 05:58 | NUR ---
SHIFT SUMMARY NOTE: VSS: NSR, NBP varies overnights (low SBP 90 with high 160), temp low 96.7F but increased with warm blankets. Cardiac: mild nonpitting edema to bilat hands, moderate nonpitting edema to bilat feet and ankles RIJ QL - propofol @ 45, fentanyl @ 50, precedex @ 0.7, rocuronium @ 5 dressing changed: sutures extra long RAC PIV - capped dressing changed Lungs: ETT 8.0/28 @ lip - no inline secretions, oral secretions clear and thin Lung sounds diminished and coarse, Vent settings Rate 20, Vt 470, PEEP 12, Fio2 80% with pulse ox ranging mostly 91%-94% GI: OG in place. TF (Vital HP) cut in half (down to 15ml/hr) per high residual protocol. 300ml residual for midnight check. 250ml returned. 50 ml wasted. TF held. Rechecked with 250ml return. Dr[address] Garcia notified. 250ml wasted. TF decreased from 30ml/hr to 15ml/hr. Per charting: no BM since 02/07/21. Given PRN Milk of Magnesia and Dulcolax suppository. Dr. Garcia notified. Abdomen distended with hypoactive and diminished bowel sounds. : Asher in place. Urine output adequate. Urine color dark jacki and green. Clear. Last urine positive for leukocytes and bacteria per lab notes. Patient on Zosyn. Skin: no skin issues Neuro: sedated and paralyzed. No reflex to pain on any extremity. No blink reflex. No cough. Gag reflex mild (increased rocuronium gtt from 4 to 5) TOF 4/4 with eyebrow twitches, 0/4 bilat arms for finger twitches. PERRL at 4.
--- NOTE | 2021-02-18 08:03 | NUR ---
Received report from Noc RN. Patient remains intubated, sedated and paralyzed. He has 8.0 26cm at teeth and settings of 20/470/80/12 and sats >90%. TO4 1/ and BIS 32-40. He has RIJ infusing Propofol at 45 mcg/kg/min, Rocironium at 5 mcg/kg/min, Precededx 0.7 mcg/kg/hr, Fentanyl 50 mcg/hr, and NS NS TKO. Patient has 16 Fr linton draing green urine.
--- NOTE | 2021-02-18 09:30 | NUR ---
No significant changes with vent or gtt's. Patient tolerated am meds with OG and IV.
--- NOTE | 2021-02-18 11:30 | NUR ---
Et was having issues with suctioning and with the trouble from yesterday Dr Nguyen wanted to change ET out. Process went very well and sats dropped very briefly and 8.5 ET was and 28 cm at teeth, Sats currently 96 and dropped FiO2 to 85%, He has some mild hypotension and dropped Propofol to 35 mcg/kg/min, Rocironium dropped to 4 mcg/kg/min and TO4 1/4 and BIS 35-45.
--- NOTE | 2021-02-18 14:00 | NUR ---
Patient has tolerated changes to Propofol and Rocironium. FiO2 changed to 75% and sats 93-94%. With reduction in sedation Systolic up to 140's. He remains slightly febrile at 99.1. Asher patent and has moderate output. Still no stool so far this shift.
--- NOTE | 2021-02-18 16:00 | NUR ---
Patient tolerating continued reduction in sedation. Propofol remains at 35 mcg/kg/min, and Rocironium at 4 mcg/kg/min, Fentanyl at 50 mcg/hr, NS TKO. Vent settings are 20/470/75/12 and sats 94%. TO4 2/4, BIS 35-45. Asher continues to have moderate jacki output. Dr Ferrara wants sedation reduced as he wants to DC paralytic tomorrow.
--- NOTE | 2021-02-18 17:36 | NUR ---
Patient resting well on sedation and paralytic. 8.5 ET and 28 at teeth with vent settings of 20/470/70/12 and sats 94%. RIJ infusing Propofol at 35 mcg/kg/min, Precedex at 0.7 mcg/kg/hr, Rocironium at 3 mcg/kg/min, Fentanyl at 50 mcg/hr and NS TKO, No bm this shift. Asher output >2000 ml jacki colored urine.
--- NOTE | 2021-02-18 19:00 | NUR ---
REPORT RECEIVED BY GENI REED. [facility].
--- NOTE | 2021-02-18 20:00 | NUR ---
ASSESSMENT ADDITIONAL NOTES: PATIENT ON PROPOFOL AT 35, FENTANYL AT 50, PRECEDEX AT 0.7, AND ROCURONIUM AT 3 DURING INITIAL ASSESSMENT.
--- NOTE | 2021-02-19 02:19 | NUR ---
REPORT RECEIVED BY GENI REED
[2021-02-19 04:58] LABS: BASOPHILS ABSOLUTE AUTO 0.02 K/mm3 (0.00-0.23); BASOPHILS PERCENT AUTO 0 % (0-2); EOSINOPHILS ABSOLUTE AUTO 0.26 K/mm3 (0.00-0.68); EOSINOPHILS PERCENT AUTO 2 % (0-6); Hematocrit 39.4 % (37.0-53.0); Hemoglobin 12.2 g/dL (13.5-17.5); IMMATURE GRAN ABSOLUTE AUTO 0.22 K/mm3 (0.00-0.10); IMMATURE GRAN PERCENT AUTO 2 % (0-1); LYMPHOCYTES ABSOLUTE AUTO 0.53 K/mm3 (0.84-5.20); LYMPHOCYTES PERCENT AUTO 5 % (21-46); MONOCYTES PERCENT AUTO 4 % (4-13); Mean Corpuscular HGB 27.9 pg (26.0-34.0); Mean Corpuscular Volume 90 fL (80-100); NEUTROPHILS ABSOLUTE AUTO 9.95 K/mm3 (1.96-9.15); NEUTROPHILS PERCENT AUTO 87 % (41-73); Platelet Count 368 K/mm3 (150-400); RDW Coefficient Variation 14.4 % (11.7-14.2); Red Blood Cell Count 4.37 M/mm3 (4.30-5.90); White Blood Cell Count 11.38 K/mm3 (4.00-11.30)
[2021-02-19 05:53] LABS: Albumin, Blood 1.7 g/dL (3.4-5.0); Anion Gap 3 mmol/L (6-16); Blood Urea Nitrogen 29 mg/dL (8-24); Bun/Creatinine Ratio 36.9 (12.0-20.0); CO2, Blood 34 mmol/L (21-32); Calcium, Blood 8.4 mg/dL (8.5-10.1); Chloride, Blood 109 mmol/L (98-108); Creatinine, Blood 0.79 mg/dL (0.60-1.20); Glomerular Filtration Rate >60 (60-); Glucose, Blood 122 mg/dL (70-99); Magnesium, Blood 2.6 mg/dL (1.6-2.4); Phosphorus, Blood 1.7 mg/dL (2.5-4.9); Potassium, Blood 3.7 mmol/L (3.5-5.5); Sodium, Blood 146 mmol/L (136-145)
--- NOTE | 2021-02-19 07:37 | NUR ---
SHIFT SUMMARY NOTE. CHANGES DURING SHIFT: -DECREASED ROCURONIUM TO 2. INCREASED PROPOFOL FOR SEDATION. - NO BM YET. - BATH LAST NIGHT. - STRONGER COUGH REFLEX.
--- NOTE | 2021-02-19 12:16 | NUR ---
AM ASSESSMENT: PT REMAINS INTUBATED, SEDATED, PARALYZED, AND RESTRAINED. ROCURONIUM @ 2 MCG/KG/MIN-TO4 09/07. BIS TRENDING 40-60'S WITH PROPOFOL @ 50 MCG/KG/MIN AND PRECEDEX @ 0.7 MCG/KG/MIN, AND FENTANYL CONTINUOUS @ 50 MCG/HR. PT DOES HAVE COUGH AND GAG-ANTICIPATE TITRATING ROCURONIUM TO OFF TOLERATED. PT FEBRILE-TEMP 100.8. ECG SHOWS SR. BP STABLE. LUNGS DIMINISHED-NO ETT SECRETIONS. SATS>90% ON FIO2 70%. PT TOLERATING OGTF WELL. AZAR WITH SMALL AMOUNT OF DARK, YELLOW URINE TO BSD.
--- NOTE | 2021-02-19 12:30 | NUR ---
ROCURONIUM DRIP OFF. PIVOT 1.5 DECREASED TO NEW GOAL OF 25 ML/HR. PT FEBRILE-TEMP 101.8-MED WITH TYLENOL PER OGT-SEE EMAR.
--- NOTE | 2021-02-19 12:52 | NUR ---
Spiritual care visit conducted. I visit patient and provide prayer. I then call his spouse, Cecy on the phone. I inform her of my practice of praying for him. She tells me about the horrible emotional pain she is in because of the seperation from the patient, the fear of his demise and the feeling that her life is suspended in midair. I provide therapeutic listening, prayer and inspiring scriptures. Cecy responds well and shows signs of increased peace. She voices appreciation for the call and states that she is hanging on every contact from our staff. I will continue to remain available to patient and family.
--- NOTE | 2021-02-19 18:42 | NUR ---
PT REMAINS INTUBATED, SEDATED, AND RESTRAINED. PT ADEQUATELY SEDATED ON PROPOFOL @ 45 MCG/KG/MIN, PRECEDEX @ 0.7 MCG/KG/MIN, AND FENTANYL @ 50 MCG/HR. PT TOLERATING VENTILATION WELL. MAINTAINS SATS>90% ON FIO2 70% AZAR OUTPUT IMPROVED WITH LASIX-SEE EMAR.
--- NOTE | 2021-02-20 00:18 | NUR ---
DR LUKE UPDATED WITH PT STACKING BREATHES AND ASYNCHRONY WITH VENT. ORDER TO INCREASE FENTANYL GTT TO 100MCG/HR RECEIVED.
[2021-02-20 04:19] LABS: BASOPHILS ABSOLUTE AUTO 0.02 K/mm3 (0.00-0.23); BASOPHILS PERCENT AUTO 0 % (0-2); EOSINOPHILS ABSOLUTE AUTO 0.19 K/mm3 (0.00-0.68); EOSINOPHILS PERCENT AUTO 2 % (0-6); Hematocrit 38.5 % (37.0-53.0); Hemoglobin 11.9 g/dL (13.5-17.5); IMMATURE GRAN PERCENT AUTO 2 % (0-1); LYMPHOCYTES ABSOLUTE AUTO 0.91 K/mm3 (0.84-5.20); LYMPHOCYTES PERCENT AUTO 10 % (21-46); MONOCYTES ABSOLUTE AUTO 0.66 K/mm3 (0.16-1.47); MONOCYTES PERCENT AUTO 7 % (4-13); Mean Corpuscular HGB 28.3 pg (26.0-34.0); Mean Corpuscular HGB Conc 30.9 g/dL (31.5-36.5); Mean Corpuscular Volume 91 fL (80-100); Mean Platelet Volume 10.2 fL (9.1-12.4); NEUTROPHILS ABSOLUTE AUTO 7.45 K/mm3 (1.96-9.15); NEUTROPHILS PERCENT AUTO 79 % (41-73); Platelet Count 364 K/mm3 (150-400); RDW Coefficient Variation 14.2 % (11.7-14.2); RDW Standard Deviation 48.1 fL (35.1-46.3); Red Blood Cell Count 4.21 M/mm3 (4.30-5.90); White Blood Cell Count 9.43 K/mm3 (4.00-11.30)
[2021-02-20 04:36] LABS: Albumin, Blood 1.6 g/dL (3.4-5.0); Anion Gap 0 mmol/L (6-16); Blood Urea Nitrogen 26 mg/dL (8-24); Bun/Creatinine Ratio 34.4 (12.0-20.0); CO2, Blood 37 mmol/L (21-32); Calcium, Blood 7.9 mg/dL (8.5-10.1); Chloride, Blood 108 mmol/L (98-108); Creatinine, Blood 0.76 mg/dL (0.60-1.20); Glomerular Filtration Rate >60 (60-); Glucose, Blood 128 mg/dL (70-99); Phosphorus, Blood 2.1 mg/dL (2.5-4.9); Potassium, Blood 3.6 mmol/L (3.5-5.5); Sodium, Blood 145 mmol/L (136-145)
--- NOTE | 2021-02-20 06:38 | NUR ---
PT'S VENT SETTINGS REMAIN UNCHANGED. HE TOLERATES REPOSITIONING AND ADL'S FAIRLY WELL WITH NO MAJOR O2 DESATURATIONS. ETT IS RETAPED BY RT AT 27 AT THE TEETH. PT WAS STACKING BREATHS AND ASYNCHRONOUS WITH VENT SO SEDATION WAS INCREASED. PT HAS STILL NOT HAD A BM DOCUMENTED SINCE 02/07, BUT ABD XRAY ON 02/18 DID NOT SHOW ANY ISSUES. NO OTHER SIGNIFICANT CHANGES NOTED. WILL CONTINUE TO MONITOR AND REPORT TO ONCOMING SHIFT.
--- NOTE | 2021-02-20 08:57 | NUR ---
This RN assumed care. Pt intubated and sedated on prop, precedex and fentanyl. Attempting to wean some sedation since pt is not responding to any painful stimuli and barely has a gag. perrla is 2mm. Pt restrained. Vent settings are 20/420/12/65% Pt is mildly asynchronous on vent. Tube is a #8.5 at 27 at the teeth. No BM since 02/07. Given all bowel regimen ordered.
--- NOTE | 2021-02-20 18:26 | NUR ---
SEDATION DOWN THROUGHOUT THE DAY. NOW AT PROPOFOL OF 35, PRECEDEX AT 0.4 AND FENTANYL AT 100. VENT SETTINGS ALSO DOWN TO 20/420/12/50 PT BATHED AGAIN TODAY HE IS PERSISTENTLY SWEATY. ALTHOUGH LOW GRADE TO NO FEVERS THROUGHOUT THE DAY. ADEQUATE OUTPUT WITH LASIX TID
--- NOTE | 2021-02-21 01:45 | NUR ---
DR LUKE UPDATED WITH SOFT BP'S. ORDER FOR LOW DOSE LEVOPHED TO KEEP MAP >65.
[2021-02-21 04:36] LABS: BASOPHILS ABSOLUTE AUTO 0.02 K/mm3 (0.00-0.23); BASOPHILS PERCENT AUTO 0 % (0-2); EOSINOPHILS ABSOLUTE AUTO 0.11 K/mm3 (0.00-0.68); EOSINOPHILS PERCENT AUTO 1 % (0-6); Hematocrit 38.2 % (37.0-53.0); Hemoglobin 11.9 g/dL (13.5-17.5); IMMATURE GRAN PERCENT AUTO 3 % (0-1); LYMPHOCYTES ABSOLUTE AUTO 1.01 K/mm3 (0.84-5.20); LYMPHOCYTES PERCENT AUTO 10 % (21-46); MONOCYTES PERCENT AUTO 9 % (4-13); Mean Corpuscular HGB 28.2 pg (26.0-34.0); Mean Corpuscular HGB Conc 31.2 g/dL (31.5-36.5); Mean Corpuscular Volume 91 fL (80-100); Mean Platelet Volume 10.3 fL (9.1-12.4); NEUTROPHILS ABSOLUTE AUTO 8.23 K/mm3 (1.96-9.15); NEUTROPHILS PERCENT AUTO 77 % (41-73); Platelet Count 378 K/mm3 (150-400); RDW Coefficient Variation 14.2 % (11.7-14.2); RDW Standard Deviation 47.2 fL (35.1-46.3); Red Blood Cell Count 4.22 M/mm3 (4.30-5.90); White Blood Cell Count 10.67 K/mm3 (4.00-11.30)
[2021-02-21 04:53] LABS: Albumin, Blood 1.7 g/dL (3.4-5.0); Anion Gap 3 mmol/L (6-16); Blood Urea Nitrogen 30 mg/dL (8-24); Bun/Creatinine Ratio 39.1 (12.0-20.0); CO2, Blood 36 mmol/L (21-32); Calcium, Blood 7.9 mg/dL (8.5-10.1); Chloride, Blood 108 mmol/L (98-108); Creatinine, Blood 0.77 mg/dL (0.60-1.20); Glomerular Filtration Rate >60 (60-); Glucose, Blood 127 mg/dL (70-99); Phosphorus, Blood 2.3 mg/dL (2.5-4.9); Potassium, Blood 3.3 mmol/L (3.5-5.5); Sodium, Blood 147 mmol/L (136-145)
--- NOTE | 2021-02-21 06:30 | NUR ---
NO SIGNIFICANT CHANGES OVERNIGHT. FIO2 INCREASED TO 55%. SPUTUM SPECIMEN SENT FOR CX AND CYTOLOGY. LABS REPORTED TO DR. LUKE AND [facility] IS ORDERED. WILL CONTINUE TO MONITOR AND REPORT TO ONCOMING SHIFT.
--- NOTE | 2021-02-21 07:40 | NUR ---
Care Assumed 0700 Vent settings: AC VC 20/470/12/55%. Propofol GTT 45 MCG/KG/MIN and Precedex 0.4 mcg/kg/hr. Fentanyl GTT 100 Mcg/hr. Pt has cough present but not following commands or opening eyes. OG tube in place with TF @ goal. BT Hypoactive. Asher in place with 200 ml of dark jacki output. SWB.
--- NOTE | 2021-02-21 18:07 | NUR ---
Shift Summary Pt continues to be intubated and sedated. Vent settings: AC 20/470/12/55%, SPO2 > 90%. Propofol GTT 50 mcg/kg/min, Precedex 0.4 mcg/kg/hr and Fentanyl GTT 100 MCG/HR. Pt not following commands but coughing occasionally. Grimaces during oral care and turns. Asher in place. OG tube with TF @ goal, BT active. No BM during shift. No other changes T/O shift. Will report to oncoming shift.
--- NOTE | 2021-02-21 18:35 | NUR ---
Update- FIO2 FIO2 decreased to 50% per DR. Burgos. Central line removed at 1500 after BRIANNA James placed PowerGlide. Pt tolerated removal of central line.
--- NOTE | 2021-02-21 19:45 | NUR ---
ASSUMPTION OF CARE PATIENT INTUBATED FIO2 50% WITH 02 SATS ABOVE 95%. NO GAG PRESENT WITH ORAL CARE, DECREASED PRECEDEX 0.3MCG/KG. TF RUNNING AT GOAL WITH 20ML RESIDUALS REFED. AZAR PATENT AND DRAINING XU URINE. WILL REVIEW ORDERS AND TREAT PRESCRIBED.
--- NOTE | 2021-02-22 04:00 | NUR ---
REASSESSMENT NO ACUTE CHANGES FROM PREVIOUS ASSESSMENT. VITALS STABLE. LEVOPHED AT 2MCG. SEDATION AND VENT SETTINGS REMAIN UNCHANGED. LABS DRAWN, AWAITING RESULTS. WILL CONTINUE TO MONITOR.
[2021-02-22 04:21] LABS: BASOPHILS ABSOLUTE AUTO 0.04 K/mm3 (0.00-0.23); BASOPHILS PERCENT AUTO 0 % (0-2); EOSINOPHILS ABSOLUTE AUTO 0.28 K/mm3 (0.00-0.68); EOSINOPHILS PERCENT AUTO 2 % (0-6); Hematocrit 41.6 % (37.0-53.0); IMMATURE GRAN ABSOLUTE AUTO 0.24 K/mm3 (0.00-0.10); IMMATURE GRAN PERCENT AUTO 2 % (0-1); LYMPHOCYTES ABSOLUTE AUTO 1.28 K/mm3 (0.84-5.20); LYMPHOCYTES PERCENT AUTO 10 % (21-46); MONOCYTES ABSOLUTE AUTO 1.23 K/mm3 (0.16-1.47); MONOCYTES PERCENT AUTO 9 % (4-13); Mean Corpuscular HGB 28.3 pg (26.0-34.0); Mean Corpuscular HGB Conc 31.3 g/dL (31.5-36.5); Mean Corpuscular Volume 91 fL (80-100); Mean Platelet Volume 10.1 fL (9.1-12.4); NEUTROPHILS ABSOLUTE AUTO 10.12 K/mm3 (1.96-9.15); NEUTROPHILS PERCENT AUTO 77 % (41-73); Platelet Count 380 K/mm3 (150-400); RDW Coefficient Variation 14.4 % (11.7-14.2); RDW Standard Deviation 48.1 fL (35.1-46.3); Red Blood Cell Count 4.59 M/mm3 (4.30-5.90); White Blood Cell Count 13.19 K/mm3 (4.00-11.30)
[2021-02-22 04:35] LABS: Albumin, Blood 1.9 g/dL (3.4-5.0); Blood Urea Nitrogen 29 mg/dL (8-24); Bun/Creatinine Ratio 44.3 (12.0-20.0); CO2, Blood 35 mmol/L (21-32); Calcium, Blood 8.1 mg/dL (8.5-10.1); Chloride, Blood 110 mmol/L (98-108); Creatinine, Blood 0.66 mg/dL (0.60-1.20); Glomerular Filtration Rate >60 (60-); Glucose, Blood 123 mg/dL (70-99); Phosphorus, Blood 2.4 mg/dL (2.5-4.9); Potassium, Blood 3.5 mmol/L (3.5-5.5); Sodium, Blood 144 mmol/L (136-145)
--- NOTE | 2021-02-22 06:19 | NUR ---
SHIFT SUMMARY NO ACUTE CHANGES THROUGH SHIFT. ADJUSTED SEDATION FOR VENT TOLERANCE. FIO2 REMAINS UNCHANGED WITH STABLE O2 SATS. LEVOPHED STARTED FOR LOW B/P AND MAP. TF AT GOAL WITH MINIMAL RESIDUALDS. DARK XU URINE DRAINING IN AZAR. WILL CONTINUE TO MONITOR AND REPORT TO TO ONCOMING RN.
[2021-02-22 07:02] LABS: Anion Gap Unable to Calculate mmol/L (6-16)
--- NOTE | 2021-02-22 09:59 | NUR ---
ASSUMED CARE REPORT FROM CHRIS REED AT 0700. PT INTUBATED AND SEDATED. VENT SETTINGS AC/VC 20/470/10/50%. LUNGS DIM THROUGHOUT. COUGH REFLEX PRESENT, PT OCCASIONALLY COUGHING, DOUBLE STACKING ON VENT. DOES NOT FOLLOW COMMANDS. NO RESPONSE TO PAINFUL STIMULI. PROPOFOL, PRECEDEX AND FENTANYL GTT FOR PAIN AND SEDATION. ABD ROUND, SOFT, NON TENDER. HYPOACTIVE BT. LEVO INFUSING VIA PIV AT SHIFT CHANGE. IV LEAKING, PICC PLACED TO LUE. LEVO ON STANDBY. POWERGLIDE TO RUE. AZAR PATENT, DRAINING CLOUDY YELLOW URINE TO GRAVITY. GENERALIZED EDEMA. PT DIAPHORETIC. NSR, RATE 60'S. BP STABLE AT THIS TIME. WILL CONTINUE TO MONITOR.
[2021-02-22 12:39] LABS: Source, Urine Catheter
[2021-02-22 12:49] LABS: Bilirubin, Urine Neg (Neg); Blood, Urine 2+ (Neg); Glucose Qualitative, Urine Neg (Neg); Ketones, Urine Neg (Neg); Leukocyte Esterase, Urine 1+ (Neg); Nitrite, Urine Neg (Neg); Protein, Urine 2+ (Neg); Urobilinogen, Urine 1+ (Normal)
[2021-02-22 12:55] LABS: Appearance, Urine Clear (Clear); Color, Urine Yellow (P-Yellow)
[2021-02-22 12:58] LABS: Bacteria Rare /hpf; Squamous Epithelial Cells Few /hpf (Few); White Blood Cells, Urine 0-2 /hpf (0-5)
--- NOTE | 2021-02-22 17:43 | NUR ---
SHIFT SUMMARY PT REMAINS INTUBATED, SEDATED. CHANGED TO SPONT 03/15/50% THIS AM, TOLERATING THIS SETTING BETTER. MINIMAL COUGHING. SEDATION DECREASED, PROPOFOL 40 MCG/KG/MIN, FENTANYL 50 MCG/HR, PRECEDEX 0.4 MCG/KG/HR. PUPILS SLUGGISH, 3 MM. NOT RESPONSIVE TO PAINFUL STIMULI. NO GAG OR SWALLOW REFLEX. LUNGS CLEAR. PICC PLACED THIS SHIFT. LEVO ON STANDBY. MAP>65. SR, RATE 60'S. SUPPOSITORY GIVEN. NO BM THIS SHIFT. ABD OBESE, SOFT, NON TENDER. HYPOACTIVE BT. TUBE FEEDS AT GOAL. AZAR PATENT, DRAINING TEA COLORED URINE TO GRAVITY. REPEAT URINE CULTURE SENT THIS SHIFT. PHOS REPLACED, VANCO ADDED. WILL CONTINUE TO MONITOR UNTIL REPORT TO ONCOMING NURSE.
--- NOTE | 2021-02-22 19:30 | NUR ---
ASSUMPTION OF CARE RECEIVED REPORT FROM TORREY REED AT 1910. ASSUMED CARE OF PATIENT. PATIENT INTUBATED WITH VENT SETTINGS SPONT. 10/10 FIO2 50%. SATS ABOVE 90%. PATIENT TOLERATING WELL. SEDATION OF PRECEDEX, PROPOFOL AND FENTANYL. VITALS STABLE WITH LEVOPHED OFF. OG WITH TF INFUSING AT GOAL, 15ML RESIDUALS REFED. ACTIVE BOWEL TONES. AZAR WITH XU URINE DRAINING. WILL REVIEW ORDERS AND TREAT PRESCRIBED.
--- NOTE | 2021-02-23 | NUR ---
REASSESSMENT NO ACUTE CHANGES FROM PREVIOUS ASSESSMENT. REMAINS ON SPONTANEOUS 03/15 WITH FIO2 50%. SATS ABOVE 92%. AROUSES TO PHYSICAL STIMULI, PROPOFOL, PRECEDEX AND FENTANYL UNCHANGED. LARGE LIQUID BM, GUAIC SENT ORDERED. CONTINUING TO MONITOR.
[2021-02-23 00:36] LABS: Stool Occult Blood Guaiac 1 Pos (Neg)
--- NOTE | 2021-02-23 04:00 | NUR ---
REASSESSMENT NO ACUTE CHANGES FROM PREVIOUS ASSESSMENT. REMAINS ON SPONTANIOUS 10/10 FIO2 50% WITH SATS ABOVE 95%. VITALS STABLE. TF AT GOAL. SEDATION TITRATIONS UNCHANGED. CONTINUING TO MONITOR
[2021-02-23 04:26] LABS: BASOPHILS ABSOLUTE AUTO 0.03 K/mm3 (0.00-0.23); BASOPHILS PERCENT AUTO 0 % (0-2); EOSINOPHILS ABSOLUTE AUTO 0.21 K/mm3 (0.00-0.68); EOSINOPHILS PERCENT AUTO 2 % (0-6); Hematocrit 37.7 % (37.0-53.0); Hemoglobin 11.8 g/dL (13.5-17.5); IMMATURE GRAN ABSOLUTE AUTO 0.23 K/mm3 (0.00-0.10); IMMATURE GRAN PERCENT AUTO 2 % (0-1); LYMPHOCYTES ABSOLUTE AUTO 0.88 K/mm3 (0.84-5.20); LYMPHOCYTES PERCENT AUTO 7 % (21-46); MONOCYTES ABSOLUTE AUTO 1.04 K/mm3 (0.16-1.47); MONOCYTES PERCENT AUTO 9 % (4-13); Mean Corpuscular HGB 28.1 pg (26.0-34.0); Mean Corpuscular HGB Conc 31.3 g/dL (31.5-36.5); Mean Corpuscular Volume 90 fL (80-100); Mean Platelet Volume 10.5 fL (9.1-12.4); NEUTROPHILS ABSOLUTE AUTO 9.72 K/mm3 (1.96-9.15); NEUTROPHILS PERCENT AUTO 80 % (41-73); Platelet Count 328 K/mm3 (150-400); RDW Coefficient Variation 14.4 % (11.7-14.2); RDW Standard Deviation 46.9 fL (35.1-46.3); White Blood Cell Count 12.11 K/mm3 (4.00-11.30)
[2021-02-23 04:49] LABS: Albumin, Blood 1.7 g/dL (3.4-5.0); Anion Gap 3 mmol/L (6-16); Blood Urea Nitrogen 22 mg/dL (8-24); Bun/Creatinine Ratio 34.3 (12.0-20.0); CO2, Blood 31 mmol/L (21-32); Calcium, Blood 7.9 mg/dL (8.5-10.1); Chloride, Blood 110 mmol/L (98-108); Creatinine, Blood 0.64 mg/dL (0.60-1.20); Glomerular Filtration Rate >60 (60-); Glucose, Blood 112 mg/dL (70-99); Phosphorus, Blood 2.1 mg/dL (2.5-4.9); Potassium, Blood 3.2 mmol/L (3.5-5.5); Sodium, Blood 144 mmol/L (136-145)
[2021-02-23 05:18] LABS: PCO2 Arterial 40.9 mmHg (35-45); pH Blood Arterial 7.49 (7.35-7.45)
[2021-02-23 05:19] LABS: PO2 Arterial 63.4 mmHg (80-100)
--- NOTE | 2021-02-23 06:19 | NUR ---
SHIFT SUMMARY PATIENT REMAINED ON SPONTANEOUS /10 FIO2 50% WITH SATS ABOVE 90%. SEDATION OF PROPOFOL AT 40MCG/KG, PRECEDEX AT 0.4 MCG/KG, AND FENTANYL AT 50MCG/HR. TF AT GOAL WITH MINIMAL RESIDUALS. BOWEL MOVEMENTS NOTED WITH GUAIC SENT. LABS REVIEWED, POTASSIUM PHOS INFUSING. WILL CONTINUE TO MONITOR AND REPORT TO ONCOMING RN.
--- NOTE | 2021-02-23 08:36 | NUR ---
AGGITATION PT. ON SPONT. THIS AM, VENT ALARMING FOR INCREASED RR IN THE 40S. PRIMARY RN NOTIFIED ASKED TO INCREASE PROPOFOL TO 50MCG/KG. THIS WAS DONE WITH NO CHANGE. BP ELEVATED AND PT DIAPHORETIC. 2MG ATIVAN GIVEN AND IV SITE ASSESSED WHERE SEDATION WAS INFUSING. UNABLE TO OBTAIN BLOOD RETURN FROM POWERGLIDE AND DIFFICULT TO FLUSH. SEDATION TRANSITIONED TO PICC LINE AND POWERGLIDE REDRESSED. POSITIVE BLOOD RETURN AND FLUSHED WITH REPOSITIONING OF PG. PT. NOW MORE COMPLAINT WITH VENT RR DECREASING ALONG WITH BP. PRIMARY RN NOTIFIED.
[2021-02-23 09:32] LABS: Vancomycin, Trough 14.4 ug/mL (5.0-10.0)
--- NOTE | 2021-02-23 19:36 | NUR ---
ASSUMPTION OF CARE RECEIVED REPORT FROM AUBREY REED, ASSUMED CARE OF PATIENT. INTUBATED VENT SETTINGS SPON 10/10 FIO2 INCREASED TO 60% AT THIS TIME BY RT, ALSO READVANCED ETT BY ONE CM TO MEASURE CORRECTLY AT 27CM AT THE TEETH. SEDATATED WITH PROPOFOL AT 40MCG/KG, PRECEDEX AT 0.7 MCG/KG, AND FENT AT 50MCG/HR. OG WITH TF INFUSING AT GOAL RATE OF 25ML/HR. VITALS STABLE AT THIS TIME. WILL REVIEW ORDERS AND TREAT PRESCRIBED.
--- NOTE | 2021-02-24 | NUR ---
REASSESSMENT NO ACUTE CHANGES FROM PREVIOUS ASSESSMENT. VITALS STABLE. VENT SETTINGS UNCHANGES. PROPOFOL INCREASED DUE TO AGITATION, ELEVATED RESPIRATIONS AND CONTINUOUS COUGHING AGAINST ETT. CONTINUING TO SUCTION COPIOUS SECRETIONS VIA ETT AND ORALLY.
--- NOTE | 2021-02-24 04:00 | NUR ---
REASSESSMENT NO ACUTE CHANGES FROM PREVIOUS ASSESSMENT. VENT SETTINGS UNCHANGED. VITALS STABLE. TF AT GOAL WITH MINIMAL RESIDUALS. AZAR PATENT AND DRAINING. LABS DRAWN, AWAITING RESULTS. WILL CONTINUE TO MONITOR.
[2021-02-24 04:36] LABS: BASOPHILS ABSOLUTE AUTO 0.04 K/mm3 (0.00-0.23); BASOPHILS PERCENT AUTO 0 % (0-2); EOSINOPHILS PERCENT AUTO 2 % (0-6); Hematocrit 36.4 % (37.0-53.0); Hemoglobin 11.5 g/dL (13.5-17.5); IMMATURE GRAN ABSOLUTE AUTO 0.28 K/mm3 (0.00-0.10); IMMATURE GRAN PERCENT AUTO 2 % (0-1); LYMPHOCYTES ABSOLUTE AUTO 0.88 K/mm3 (0.84-5.20); LYMPHOCYTES PERCENT AUTO 7 % (21-46); MONOCYTES ABSOLUTE AUTO 0.92 K/mm3 (0.16-1.47); MONOCYTES PERCENT AUTO 7 % (4-13); Mean Corpuscular HGB 28.2 pg (26.0-34.0); Mean Corpuscular HGB Conc 31.6 g/dL (31.5-36.5); Mean Corpuscular Volume 89 fL (80-100); Mean Platelet Volume 10.8 fL (9.1-12.4); NEUTROPHILS ABSOLUTE AUTO 10.94 K/mm3 (1.96-9.15); NEUTROPHILS PERCENT AUTO 83 % (41-73); Platelet Count 307 K/mm3 (150-400); RDW Coefficient Variation 14.5 % (11.7-14.2); Red Blood Cell Count 4.08 M/mm3 (4.30-5.90); White Blood Cell Count 13.26 K/mm3 (4.00-11.30)
[2021-02-24 05:00] LABS: Albumin, Blood 1.7 g/dL (3.4-5.0); Anion Gap 4 mmol/L (6-16); Blood Urea Nitrogen 22 mg/dL (8-24); Bun/Creatinine Ratio 31.2 (12.0-20.0); CO2, Blood 31 mmol/L (21-32); Calcium, Blood 7.8 mg/dL (8.5-10.1); Chloride, Blood 109 mmol/L (98-108); Creatinine, Blood 0.71 mg/dL (0.60-1.20); Glomerular Filtration Rate >60 (60-); Glucose, Blood 108 mg/dL (70-99); Phosphorus, Blood 2.6 mg/dL (2.5-4.9); Potassium, Blood 3.3 mmol/L (3.5-5.5); Sodium, Blood 144 mmol/L (136-145)
--- NOTE | 2021-02-24 06:04 | NUR ---
SHIFT SUMMARY NO ACUTE EVENTS THROUGH SHIFT. REMAINS ON SPONTANEOUS 03/15, FIO2 60% INCREASED AT START OF SHIFT WITH 02 SATS 95% OR GREATER. TF REMAIN AT GOAL WITH MINIMAL RESIDUALS. SEDATION UNCHANGED. AZAR PATENT AND DRAINING CLEAR, XU URINE. WILL CONTINUE TO MONITOR AND REPORT TO ONCOMING RN.
--- NOTE | 2021-02-24 08:00 | NUR ---
ASSUMED CARE OF PT, REPORT RCV'D FROM BRIANNA PEREZ. PT INTUBATED AND SEDATED. VENT SETTINGS SPONTANEOUS 10/10, 60% WITH SATS 93%. PROPOFOL @ 50 MCG/KG/MIN, PRECEDEX @ 0.7 MCG/KG/HR, FENTANYL GTT @ 50 MCG/HR. LUNG SOUNDS CLEAR BILATERAL UPPER/LOWER LOBES. PT WITHDRAWS FROM PAIN, FAILS TO FOLLOW COMMANDS AT THIS TIME. PUPILS 4 MM, BRISK BILATERALLY. PIVOT 1.5 AT GOAL RATE 25 ML/HR. VSS AT THIS TIME.
[2021-02-24 10:41] LABS: Stool Occult Blood Guaiac 1 Pos (Neg)
--- NOTE | 2021-02-24 13:00 | NUR ---
Spiritual care visit conducted. I facilitated a phone call with patient's daughter, Adriaan. I put the phone up to patient's ear and she expressed her love and talked about the family and the future. I provided prayer for the patient while Adriana was on the phone and we set up a time to have further connection with the family and the patient. Adriana responds well and shows signs of being encourged just to have been able to do something and to have some sort of connection to her father. I will continue to remain available to patient and family.
--- NOTE | 2021-02-24 18:36 | NUR ---
SHIFT SUMMARY NO ACUTE CHANGES T/O SHIFT. PT REMAINS INTUBATED, VENT SETTINGS SPON 8/8, 45% PROPOFOL REMAINS AT 50 MCG/KG/MIN, PRECEDEX @ 0.7 MCG/KG/HR, FENTANYL GTT @ 50 MCG/HR. PT'S FAMILY UPDATED TWICE THIS SHIFT WITH PT STATUS AND PLAN OF CARE. WILL REPORT TO ONCOMING NURSE.
--- NOTE | 2021-02-24 20:38 | NUR ---
ASSUMPTION OF CARE RECEIVED REPORT FROM KASI REED AT 1909. ASSUMED CARE OF PATIENT. PATIENT VENTED ON SPONTANEOUS 10 50% FIO2, AROUND 1929 PATIENT DESATING TO LOW 80'S. INCREASED FIO2 TO 100% AND PROVIDED SUCTIONING. ONCE FIO2 BACK TO 50% PATIENT DROPPED SATS AGAIN. NOTIFIED CHARANJIT QUEZADA WHO EVALUATED PATIENT, PATIENT INCREASED RESPIRATIONS TO HIGH 30-40'S, INCREASED PROPOFOL TO 65MCG/KG FOR INCREASED SEDATION AND CHANGED VENT SETTINGS TO AC 26/470/10/60%. SATS NOW IN LOW 90'S, RESPIRATIONS IN HIGH 20'S. TF AT GOAL VIA OG. ACTIVE BOWEL TONES. AZAR PATENT AND DRAINING CLEAR, YELLOW URINE. VITALS OTHERWISE STABLE, AFEBRILE AT THIS TIME. WILL REVIEW ORDERS AND TREAT PRESCRIBED.
--- NOTE | 2021-02-24 23:10 | NUR ---
PATIENT CONTINUOUSLY RINGING HIGH PEAK PRESSURES, STACKING BREATHS. SUCTIONED WITH NO SECRETIONS NOTED. NOTIFIED RT, VENT SETTINGS CHANGED BACK TO SPONTANEOUS 8/8 AND 50%. VITALS STABLE. WILL MONITOR.
--- NOTE | 2021-02-25 00:15 | NUR ---
REASSESSMENT NO ACUTE CHANGES FROM PREVIOUS ASSESSMENT. PATIENT TOLERATING SPONTANEOUS 8/8 AT 50% WITH SATS 90-92%. VITALS TABLE. AFEBRILE. CONTINUING TO MONITOR.
--- NOTE | 2021-02-25 04:00 | NUR ---
REASSESSMENT NO ACUTE CHANGES FROM PREVIOUS ASSESSMENT. VITAL STABLE. VENT SETTINGS AND SEDATION UNCHANGED.
[2021-02-25 04:49] LABS: BASOPHILS ABSOLUTE AUTO 0.06 K/mm3 (0.00-0.23); BASOPHILS PERCENT AUTO 0 % (0-2); EOSINOPHILS ABSOLUTE AUTO 0.33 K/mm3 (0.00-0.68); EOSINOPHILS PERCENT AUTO 2 % (0-6); Hematocrit 37.3 % (37.0-53.0); IMMATURE GRAN ABSOLUTE AUTO 0.39 K/mm3 (0.00-0.10); IMMATURE GRAN PERCENT AUTO 2 % (0-1); LYMPHOCYTES ABSOLUTE AUTO 1.54 K/mm3 (0.84-5.20); LYMPHOCYTES PERCENT AUTO 10 % (21-46); MONOCYTES ABSOLUTE AUTO 1.11 K/mm3 (0.16-1.47); MONOCYTES PERCENT AUTO 7 % (4-13); Mean Corpuscular HGB 28.6 pg (26.0-34.0); Mean Corpuscular HGB Conc 32.2 g/dL (31.5-36.5); Mean Corpuscular Volume 89 fL (80-100); Mean Platelet Volume 10.6 fL (9.1-12.4); NEUTROPHILS ABSOLUTE AUTO 12.51 K/mm3 (1.96-9.15); NEUTROPHILS PERCENT AUTO 78 % (41-73); Platelet Count 318 K/mm3 (150-400); RDW Coefficient Variation 14.5 % (11.7-14.2); RDW Standard Deviation 46.4 fL (35.1-46.3); White Blood Cell Count 15.94 K/mm3 (4.00-11.30)
[2021-02-25 05:09] LABS: Albumin, Blood 1.8 g/dL (3.4-5.0); Anion Gap 7 mmol/L (6-16); Blood Urea Nitrogen 21 mg/dL (8-24); Bun/Creatinine Ratio 32.7 (12.0-20.0); CO2, Blood 29 mmol/L (21-32); Calcium, Blood 8.3 mg/dL (8.5-10.1); Chloride, Blood 108 mmol/L (98-108); Creatinine, Blood 0.64 mg/dL (0.60-1.20); Glomerular Filtration Rate >60 (60-); Glucose, Blood 124 mg/dL (70-99); Magnesium, Blood 2.4 mg/dL (1.6-2.4); Phosphorus, Blood 2.4 mg/dL (2.5-4.9); Potassium, Blood 3.4 mmol/L (3.5-5.5); Sodium, Blood 144 mmol/L (136-145)
--- NOTE | 2021-02-25 06:04 | NUR ---
SHIFT SUMMARY NO ACUTE CHANGES. VENT SETTINGS CHANGED FROM SPONTANEOUS TO A/C DUE TO LOW SATS, ONCE PATIENT STARTED STACKING BREATHS HE WAS RETURNED TO SPONTANEOUS /8 AT 50%. 02 SATS ABOVE 90%, SECRETIONS SUCTIONED VIA ETT FREQUENTLY. OG WITH TF AT GOAL RATE. MEDICATED PRESCRIBED. WILL REPORT TO ONCOMING.
--- NOTE | 2021-02-25 09:08 | NUR ---
ASSUMED CARE OF PT, REPORT RCV'D FROM BRIANNA PEREZ. PT INTUBATED AND SEDATED. VENT SETTINGS SPONT 01/11, 50%. PROPOFOL @65 MCG/KG/MIN, PRECEDEX @ 0.7 MCG/KG/HR, FENTANYL GTT 50 MCG/HR. PT EASILY AGITATED AND STACKS BREATHS WHEN SEDATION TURNED DOWN OR OFF FOR EVEN SHORT PERIOD OF TIME. PT PROFUSELY DIAPHORETIC, AFEBRILE AT THIS TIME. VSS.
--- NOTE | 2021-02-25 19:38 | NUR ---
ASSUMED CARE OF PT AT 1900. REPORT RECEIVED FROM SONYA REED. PT INTUBATED AND SEDATED. VENT SETTINGS PS 8/8 FIO2 50% WITH SPO2 93%. PRECEDEX INFUSING AT 0.7 MCG/KG/HR, PROPOFOL AT 65 MCG/KG/MIN, AND FENTANYL AT 50 MCG/HR. LUNGS CLEAR WITH DIM BASES. PULSES PALPABLE IN ALL EXTREMITIES. HYPOACTIVE BOWEL TONES. OG WITH TF PIVOT AT GOAL RATE OF 25 ML/HR WITH 30 ML Q4H WATER FLUSHES. AZAR DRAINING TO GRAVITY. EDEMA 2+ TO BLE.
--- NOTE | 2021-02-26 02:26 | NUR ---
DR NGUYEN CALLED REGARDING PT'S HR INCREASING AND SUSTAINING AT 105, SBP TO 170-180'S, RR 30-36. UPDATED THAT FENTANYL HAD BEEN INCREASED FROM 50 MCG TO 100 MCG/HR, PROPOFOL TO 75 MCG/KG/MIN AND PRN ATIVAN GIVEN X2 WITHOUT ANY EFFECT. PT WITH ABD AND GUPPY BREATHING. RT LAVAGED PT, MODERATE AMOUNT OF SECRETIONS OUT. SPO2 87-91% ON PS 8/8 60% FIO2. NEW ORDERS PLACED FOR 4MG ATIVAN ONCE AND 100 MCG FENTANYL ONCE. 0210: ONE TIME ATIVAN AND FENTANYL GIVEN. HR 94, SBP 130'S. CONTINUES WITH MILD ABD BREATHING, NO LONGER GUPPY BREATHING. FIO2 INCREASED TO 70%, SPO2 92%.
[2021-02-26 04:21] LABS: BASOPHILS ABSOLUTE AUTO 0.07 K/mm3 (0.00-0.23); BASOPHILS PERCENT AUTO 0 % (0-2); EOSINOPHILS ABSOLUTE AUTO 0.37 K/mm3 (0.00-0.68); EOSINOPHILS PERCENT AUTO 2 % (0-6); Hematocrit 37.7 % (37.0-53.0); Hemoglobin 11.8 g/dL (13.5-17.5); IMMATURE GRAN ABSOLUTE AUTO 0.29 K/mm3 (0.00-0.10); IMMATURE GRAN PERCENT AUTO 2 % (0-1); LYMPHOCYTES ABSOLUTE AUTO 0.92 K/mm3 (0.84-5.20); LYMPHOCYTES PERCENT AUTO 6 % (21-46); MONOCYTES ABSOLUTE AUTO 1.09 K/mm3 (0.16-1.47); MONOCYTES PERCENT AUTO 7 % (4-13); Mean Corpuscular HGB 28.4 pg (26.0-34.0); Mean Corpuscular HGB Conc 31.3 g/dL (31.5-36.5); Mean Corpuscular Volume 91 fL (80-100); Mean Platelet Volume 10.6 fL (9.1-12.4); NEUTROPHILS ABSOLUTE AUTO 13.94 K/mm3 (1.96-9.15); NEUTROPHILS PERCENT AUTO 84 % (41-73); Platelet Count 310 K/mm3 (150-400); RDW Coefficient Variation 14.4 % (11.7-14.2); RDW Standard Deviation 47.8 fL (35.1-46.3); Red Blood Cell Count 4.16 M/mm3 (4.30-5.90); White Blood Cell Count 16.68 K/mm3 (4.00-11.30)
[2021-02-26 04:35] LABS: Albumin, Blood 1.7 g/dL (3.4-5.0); Anion Gap 4 mmol/L (6-16); Blood Urea Nitrogen 19 mg/dL (8-24); Bun/Creatinine Ratio 32.6 (12.0-20.0); CO2, Blood 29 mmol/L (21-32); Calcium, Blood 8.1 mg/dL (8.5-10.1); Chloride, Blood 108 mmol/L (98-108); Creatinine, Blood 0.58 mg/dL (0.60-1.20); Glomerular Filtration Rate >60 (60-); Glucose, Blood 124 mg/dL (70-99); Phosphorus, Blood 3.2 mg/dL (2.5-4.9); Potassium, Blood 3.7 mmol/L (3.5-5.5); Sodium, Blood 141 mmol/L (136-145)
--- NOTE | 2021-02-26 06:08 | NUR ---
SHIFT SUMMARY PT REMAINS INTUBATED AND SEDATED. CURRENT VENT SETTINGS PS 10/8 FIO2 70% WITH SPO2 94%. PRECEDEX INFUSING AT 0.7 MCG/KG, PROPOFOL AT 75 MCG/KG, FENTANYL AT 100 MCG/HR, AND NS TKO. LUNGS COARSE TO CLEAR, RT LAVAGED PT AND ABLE TO SUCTION MODERATE AMOUNT OF THICK WHITE SECRETIONS VIA ETT. PT CONTINUES WITH ABDOMINAL BREATHING. PRN ATIVAN GIVEN Q2H PER ORDERS. HR 70'S SINUS ON MONITOR, SBP 115'S. AZAR DRAINING XU URINE TO GRAVITY.
--- NOTE | 2021-02-26 07:43 | NUR ---
ASSUMING CARE OF PATIENT PATIENT INTUBATED/SEDATED- PROPOFOL 65MCQ/ FENT 100/ PRECEDEX 0.7, VENT SETTINGS. SPON- 10/8 65% FIO2. O2 SAT 94% LUNG SOUNDS CLEAR DIMISHED IN ALL QIU. NSR. B/P 110, B/L WRIST RESTRAINTS. SKIN INTACT. NO S/S OF DISTRESS. TUBE FEEDING AT GOAL 20ML RESIDUAL NOTED.
--- NOTE | 2021-02-26 09:52 | NUR ---
Spiritual care phone call conducted. Talked with patient's spouse, Cecy about visiting hours and how she is doing. Provided therapeutic listening. She responds well and is very excited about the opportunity to see her . I will continue to remain available to patient and family.
--- NOTE | 2021-02-26 15:27 | NUR ---
Spiritual care visit conducted. Patient's spouse, Cecy is in patient's rm and is bedside. She talks about her the struggles of having her fighting for his life, the challenges in keeping her oneyda up (in the midst of so many discouraging reports) and heart ache of being seperated while her is so sick (although she voices that she so appreciates getting the 2 hrs a day to visit while he is on a vent). Cecy talks about her four children (their ages are 26, 21, 19 and 13) and how they are handling their dad being in the hospital. Cecy shares many stories about her and the kind of man that he is (strong, caring and a bit stubborn). I normalize her experience, encourage self-care, reinforce helpful attitudes and practices and provide therapeutic listening, laughter and prayer. Cecy responds well and shows signs of reduced stress. I will continue to remain available to patient and family.
--- NOTE | 2021-02-26 18:22 | NUR ---
SHIFT SUMMERY CT DONE- POSTIVE FOR P.E, DR. DONIS NOTIFED. PROPOFOL DECREASED TO 55. NO SIGNIFICANT EVENTS. CAME TO VISIT, SHE WAS UPDATED ALL QUESTIONED ANSWERED. VETTING SETTINGS CHANGED 10/10 60% FIO2.
--- NOTE | 2021-02-26 20:18 | NUR ---
ASSUMED CARE OF PT AT 1900, REPORT RECEIVED FROM SONYA REED. PT INTUBATED AND SEDATED. VENT SETTINGS PS 10/10 FIO2 60% WITH SPO2 95%. LUNGS CLEAR WITH DIM BASES. HYPOACTIVE BOWEL TONES, ABD WITH MOD DISTENTION FIRM TO PALPATE. AZAR DRAINING CLEAR XU URINE TO GRAVITY. PUPILS SLUGGLISH BUT REACTIVE. PT NOT OPENING EYES OR FOLLOWING COMMANDS, NO PURPOSEFUL MOVEMENT AT THIS TIME. HR 60'S SINUS ON MONITOR, SBP 115'S. PROPOFOL INFUSING AT 55 MCG/KG, PRECEDEX AT 0.7 MCG/KG, AND FENTANYL AT 100 MCG/HR.
[2021-02-27 04:33] LABS: Triglycerides 197 mg/dL (30-160)
--- NOTE | 2021-02-27 06:47 | NUR ---
SHIFT SUMMARY PT INTUBATED AND SEDATED. VENT SETTINGS 05/15 70% WITH SPO2 93%. MODERATE AMOUNT OF THICK WHITE SECRETIONS VIA ETT THIS AM. AT 0600 PT'S SBP INCREASED TO 200'S, HR INCREASED TO 115-130'S. SCHEDULED ATIVAN GIVEN, WELL PRN ATIVAN 2MG. PT'S SBP 170'S, HR 130'S. LUNGS COARSE WITH DIM BASES. HYPOACTIVE BOWEL TONES. PROPOFOL INFUSING AT 55 MCG/KG, PRECEDEX AT 0.7 MCG/KG, AND FENTANYL AT 100 MCG/HR.
--- NOTE | 2021-02-27 09:46 | NUR ---
ASSUMED CARE OF PT, REPORT RCV'D FROM BRIANNA DAVIDSON. PT INTUBATED AND SEDATED. VENT SETTINGS AC 26/300/8/70% PT TACHYCARDIC (HR 100-115) AND DIAPHORETIC. PROPOFOL @ 55 MCG/KG/MN, PRECEDEX 0.7 MCG/KG/HR, FENTANYL GTT @ 100 MCG/HR. PT WITHDRAWS FROM PAIN, NO PURPOSEFUL MOVEMENT NOTICED. PUPILS EQUAL AND REACTIVE TO LIGHT. TUBE FEEDING AT GOAL RATE. BOWEL TONES HYPOACTIVE X4. PLAN TO POSSIBLY PARALYZE AND PRONE.
[2021-02-27 13:46] LABS: BASOPHILS PERCENT AUTO 0 % (0-2); EOSINOPHILS ABSOLUTE AUTO 0.11 K/mm3 (0.00-0.68); EOSINOPHILS PERCENT AUTO 1 % (0-6); Hematocrit 32.2 % (37.0-53.0); Hemoglobin 11.1 g/dL (13.5-17.5); IMMATURE GRAN PERCENT AUTO 3 % (0-1); MONOCYTES ABSOLUTE AUTO 0.43 K/mm3 (0.16-1.47); MONOCYTES PERCENT AUTO 4 % (4-13); Mean Corpuscular HGB 31.9 pg (26.0-34.0); Mean Corpuscular HGB Conc 34.5 g/dL (31.5-36.5); Mean Corpuscular Volume 93 fL (80-100); Mean Platelet Volume 11.2 fL (9.1-12.4); NEUTROPHILS PERCENT AUTO 90 % (41-73); Platelet Count 252 K/mm3 (150-400); RDW Coefficient Variation 14.3 % (11.7-14.2); RDW Standard Deviation 49.1 fL (35.1-46.3); Red Blood Cell Count 3.48 M/mm3 (4.30-5.90); White Blood Cell Count 12.42 K/mm3 (4.00-11.30)
[2021-02-27 14:31] LABS: BASOPHILS ABSOLUTE AUTO 0.02 K/mm3 (0.00-0.23); IMMATURE GRAN ABSOLUTE AUTO 0.38 K/mm3 (0.00-0.10); LYMPHOCYTES ABSOLUTE AUTO 0.32 K/mm3 (0.84-5.20); LYMPHOCYTES PERCENT AUTO 3 % (21-46); NEUTROPHILS ABSOLUTE AUTO 10.97 K/mm3 (1.96-9.15)
--- NOTE | 2021-02-27 18:15 | NUR ---
SHIFT SUMMARY PT REMAINS INTUBATED AND SEDATED. VENT SETTINGS AC 26/400/15/40% WITH SATS 94%. PLAN TO PRONE TONIGHT, WILL PARALYZE IF NEEDED. DR. LEAHY CONSULTED FOR TRACH/PEG PLACEMENT. PROPOFOL REMAINS AT 55 MCG/KG/MIN, PRECEDEX 0.7 MCG/KG/HR, FENTANYL GTT @ 100 MCG/HR. NO CHANGE IN MENTATION. 850 ML URINARY OUTPUT. PT'S VSS STABLE T/O SHIFT. WILL REPORT TO ONCOMING NURSE.
--- NOTE | 2021-02-27 19:30 | NUR ---
ASSUMPTION OF CARE PT REMAINS INTUBATED. VENT SETTINGS 26/400/15/45%. PT RECEIVING PROPOFOL 60MCG/KG/MIN, PRECEDEX 0.7MCG/KG/HR, AND FENTANYL 100MCG/HR. TUBE FEEDING INFUSING AT GOAL RATE. R LUNG IS COARSE WITH EXPIRATORY WHEEZE, DIMINISHED THROUGHOUT. BOWEL TONES HYPOACTIVE. AZAR REMAINS IN PLACE. SEE SHIFT ASSESSMENT.
[2021-02-28 04:27] LABS: BASOPHILS ABSOLUTE AUTO 0.09 K/mm3 (0.00-0.23); BASOPHILS PERCENT AUTO 1 % (0-2); EOSINOPHILS PERCENT AUTO 4 % (0-6); Hematocrit 39.9 % (37.0-53.0); Hemoglobin 12.1 g/dL (13.5-17.5); IMMATURE GRAN PERCENT AUTO 3 % (0-1); LYMPHOCYTES ABSOLUTE AUTO 1.43 K/mm3 (0.84-5.20); LYMPHOCYTES PERCENT AUTO 10 % (21-46); MONOCYTES ABSOLUTE AUTO 1.04 K/mm3 (0.16-1.47); MONOCYTES PERCENT AUTO 7 % (4-13); Mean Corpuscular HGB 28.4 pg (26.0-34.0); Mean Corpuscular HGB Conc 30.3 g/dL (31.5-36.5); Mean Corpuscular Volume 94 fL (80-100); Mean Platelet Volume 10.4 fL (9.1-12.4); NEUTROPHILS ABSOLUTE AUTO 10.76 K/mm3 (1.96-9.15); NEUTROPHILS PERCENT AUTO 75 % (41-73); Platelet Count 339 K/mm3 (150-400); RDW Coefficient Variation 14.2 % (11.7-14.2); RDW Standard Deviation 49.1 fL (35.1-46.3); Red Blood Cell Count 4.26 M/mm3 (4.30-5.90); White Blood Cell Count 14.32 K/mm3 (4.00-11.30)
[2021-02-28 04:44] LABS: Alanine Aminotransfer (ALT/SGP 40 U/L (12-78); Albumin, Blood 1.6 g/dL (3.4-5.0); Albumin/Globulin Ratio 0.3 (0.8-1.8); Alk Phos 82 U/L (50-136); Anion Gap 1 mmol/L (6-16); Aspartate Aminotrans (AST/SGOT 29 U/L (12-37); Bilirubin, Total 0.4 mg/dL (0.1-1.0); Blood Urea Nitrogen 18 mg/dL (8-24); Bun/Creatinine Ratio 34.5 (12.0-20.0); CO2, Blood 36 mmol/L (21-32); Chloride, Blood 103 mmol/L (98-108); Creatinine, Blood 0.52 mg/dL (0.60-1.20); Globulin, Blood 5.2 g/dL (2.2-4.0); Glomerular Filtration Rate >60 (60-); Glucose, Blood 113 mg/dL (70-99); Magnesium, Blood 2.7 mg/dL (1.6-2.4); Phosphorus, Blood 2.7 mg/dL (2.5-4.9); Potassium, Blood 3.9 mmol/L (3.5-5.5); Sodium, Blood 140 mmol/L (136-145); Total Protein, Blood 6.8 g/dL (6.4-8.2)
--- NOTE | 2021-02-28 06:09 | NUR ---
SHIFT SUMMARY PT REMAINS INTUBATED. VENT SETTINGS 26/400/15/45%. PT RECEIVING PROPOFOL 60MCG/KG/MIN, PRECEDEX 0.7MCG/KG/HR, FENTANYL 100MCG/HR, AND ROCURONIUM 7MCG/KG/MIN. LUNGS ARE COARSE WITH WHEEZE, DIMINISHED IN BASES. PT IS SINUS TACH 100S-120S, SBP 140S-160S. BOWEL TONES ARE HYPOACTIVE. TUBE FEEDING REMAINS INFUSING AT GOAL RATE. AZAR CHANGED THIS SHIFT, 500ML OUTPUT THIS SHIFT OF YELLOW CLEAR URINE. BIS MONITOR IN 40S, TOF 4/4. WILL REPORT TO ONCOMING RN.
--- NOTE | 2021-02-28 17:50 | NUR ---
SUMMARY PT INTUBATED VIA TRACH. DR. LEAHY PLACED TRACH TODAY WITH DR. NGUYEN ASSIST WITH BRONCH. PROCEDURE WENT WELL AND SPO2 REMAINED ABOVE 90% T/O. PEEP DOWN FROM 16 TO 12 TODAY. FIO2 DOWN TO 40%. ROCURONIUM WAS TURNED OFF THIS AFTERNOON AND PT HAS BEEN TOLERATING THE VENT WELL. DOBHOFF WAS PLACED THIS AFTERNOON WELL AND TF RESTARTED AFTER CONFIRMATION WITH XRAY. VISITED TODAY. NO OTHER ACUTE CHANGES THIS SHIFT.
--- NOTE | 2021-02-28 20:43 | NUR ---
ASSUMPTION OF CARE PT HAD TRACH PLACED TODAY, SITE IS [facility]. VENT SETTINGS AC 26/400/12/40%. PT RECEIVING PROPOFOL 60MCG/KG/MIN, PRECEDEX 0.7MCG/KG/HR, AND FENTANYL 100MCG/HR. DOBHOFF PLACED TODAY, PIVOT 1.5 INFUSING AT GOAL RATE. AZAR REMAINS IN PLACE. SEE SHIFT ASSESSMENT.
[2021-03-01 03:31] LABS: BASOPHILS ABSOLUTE AUTO 0.05 K/mm3 (0.00-0.23); BASOPHILS PERCENT AUTO 1 % (0-2); EOSINOPHILS ABSOLUTE AUTO 0.58 K/mm3 (0.00-0.68); EOSINOPHILS PERCENT AUTO 6 % (0-6); Hematocrit 32.5 % (37.0-53.0); Hemoglobin 10.8 g/dL (13.5-17.5); IMMATURE GRAN PERCENT AUTO 3 % (0-1); LYMPHOCYTES ABSOLUTE AUTO 1.01 K/mm3 (0.84-5.20); LYMPHOCYTES PERCENT AUTO 10 % (21-46); MONOCYTES ABSOLUTE AUTO 0.58 K/mm3 (0.16-1.47); MONOCYTES PERCENT AUTO 6 % (4-13); Mean Corpuscular HGB 30.3 pg (26.0-34.0); Mean Corpuscular HGB Conc 33.2 g/dL (31.5-36.5); Mean Corpuscular Volume 91 fL (80-100); Mean Platelet Volume 10.8 fL (9.1-12.4); NEUTROPHILS ABSOLUTE AUTO 7.62 K/mm3 (1.96-9.15); NEUTROPHILS PERCENT AUTO 75 % (41-73); NRBC ABSOLUTE 0.02 K/mm3 (0.00-0.02); NRBC Auto 0.2 /100 WBC (0.0-0.2); Platelet Count 265 K/mm3 (150-400); RDW Coefficient Variation 13.9 % (11.7-14.2); RDW Standard Deviation 47.1 fL (35.1-46.3); Red Blood Cell Count 3.56 M/mm3 (4.30-5.90); White Blood Cell Count 10.14 K/mm3 (4.00-11.30)
[2021-03-01 03:54] LABS: Magnesium, Blood 2.3 mg/dL (1.6-2.4)
[2021-03-01 04:13] LABS: Anion Gap 2 mmol/L (6-16); Blood Urea Nitrogen 16 mg/dL (8-24); Bun/Creatinine Ratio 33.6 (12.0-20.0); CO2, Blood 36 mmol/L (21-32); Calcium, Blood 7.4 mg/dL (8.5-10.1); Chloride, Blood 98 mmol/L (98-108); Creatinine, Blood 0.48 mg/dL (0.60-1.20); Glomerular Filtration Rate >60 (60-); Glucose, Blood 118 mg/dL (70-99); Phosphorus, Blood 0.9 mg/dL (2.5-4.9); Potassium, Blood 3.5 mmol/L (3.5-5.5); Sodium, Blood 136 mmol/L (136-145)
--- NOTE | 2021-03-01 06:23 | NUR ---
SHIFT SUMMARY PT REMAINS ON VENTILATOR VIA TRACH. VENT SETTINGS AC 26/400/12/40%. TRACH CARE PROVIDED, SITE IS DRY. SMALL AMOUNTS OF BLOODY SECRETIONS DURING SUCTIONING. PT RECEIVING PROPOFOL 60MCG/KG/MIN, PRECEDEX 0.7MCG/KG/HR, AND FENTANYL 100MCG/HR. TUBE FEED REMAINS INFUSING AT GOAL RATE VIA DOBHOFF. AZAR REMAINS IN PLACE DRAINING CLEAR YELLOW URINE, SHIFT OUTPUT OF 2150ML. WILL REPORT TO ONCOMING RN.
--- NOTE | 2021-03-01 17:59 | NUR ---
SUMMARY PT INTUBATED VIA TRACH. SEDATED WITH PROPOFOL, PRECEDEX, AND FENTANYL. ATTEMPTED TO TITRATE SEDATION DOWN TODAY BUT PT BECOMES HYPERTENSIVE AND ALARMS THE VENT FREQUENTLY. ABLE TO TITRATE FENTANYL TO 50MCG/MIN. SEE FLOWSHEET FOR OTHER TITRATIONS. TRACH PLACED YESTERDAY LOOKS GOOD, NO REDNESS OR BLEEDING. TOLERATING TF THROUGH DOBHOFF. GAVE MOM AND SUPPOSITORY TODAY FOR NO BM AND PT HAD LARGE LIQUID STOOL. NO OTHER CHANGES THIS SHIFT.
[2021-03-02 04:55] LABS: BASOPHILS ABSOLUTE AUTO 0.06 K/mm3 (0.00-0.23); BASOPHILS PERCENT AUTO 1 % (0-2); EOSINOPHILS ABSOLUTE AUTO 0.81 K/mm3 (0.00-0.68); EOSINOPHILS PERCENT AUTO 9 % (0-6); Hematocrit 34.4 % (37.0-53.0); Hemoglobin 10.6 g/dL (13.5-17.5); IMMATURE GRAN ABSOLUTE AUTO 0.42 K/mm3 (0.00-0.10); IMMATURE GRAN PERCENT AUTO 4 % (0-1); LYMPHOCYTES ABSOLUTE AUTO 1.15 K/mm3 (0.84-5.20); LYMPHOCYTES PERCENT AUTO 12 % (21-46); MONOCYTES ABSOLUTE AUTO 0.47 K/mm3 (0.16-1.47); MONOCYTES PERCENT AUTO 5 % (4-13); Mean Corpuscular HGB 27.9 pg (26.0-34.0); Mean Corpuscular HGB Conc 30.8 g/dL (31.5-36.5); Mean Corpuscular Volume 91 fL (80-100); NEUTROPHILS ABSOLUTE AUTO 6.56 K/mm3 (1.96-9.15); NEUTROPHILS PERCENT AUTO 69 % (41-73); NRBC ABSOLUTE 0.02 K/mm3 (0.00-0.02); NRBC Auto 0.2 /100 WBC (0.0-0.2); Platelet Count 283 K/mm3 (150-400); RDW Coefficient Variation 14.6 % (11.7-14.2); RDW Standard Deviation 48.8 fL (35.1-46.3); White Blood Cell Count 9.47 K/mm3 (4.00-11.30)
[2021-03-02 05:12] LABS: Anion Gap 1 mmol/L (6-16); Blood Urea Nitrogen 15 mg/dL (8-24); Bun/Creatinine Ratio 29.8 (12.0-20.0); CO2, Blood 38 mmol/L (21-32); Calcium, Blood 8.3 mg/dL (8.5-10.1); Chloride, Blood 105 mmol/L (98-108); Glomerular Filtration Rate >60 (60-); Glucose, Blood 112 mg/dL (70-99); Magnesium, Blood 2.5 mg/dL (1.6-2.4); Phosphorus, Blood 2.9 mg/dL (2.5-4.9); Potassium, Blood 3.1 mmol/L (3.5-5.5); Sodium, Blood 144 mmol/L (136-145)
--- NOTE | 2021-03-02 06:57 | NUR ---
Patient remain vented. No acute clinical changes. Suctioned for moderate amount of petty secretion. This morning as per electrolyte repacement order was written for potassiun level of 3.1.
--- NOTE | 2021-03-02 19:14 | NUR ---
The patient remains on the ventilator and on IV sedation. A sedation vacation attempt this morning resulted in the patient going into worsening respiratory distres, causing hypertension, tachycardia, and dyspnea with tachypnia. At the time, the heart rate was in the 120's, the SBP was in the 170's, and the RR was in the 30's. MDs made aware and sedation was resumed at half the rate per MD order. During the sedation vacation, the patient did not respond to verbal commands or make any purposeful movements. The patient is febrile with a max temp of 100.6. Tylenol was administered and ice packs were applied with no improvement to temperature. Hypokalemeia was corrected with administration of 60 mEqs of IV potassium chloride
--- NOTE | 2021-03-02 21:26 | NUR ---
Received patient and assumed care at 1900. Vented but having abdominal breathing, Raspiration high in the 40's with sbp above 150. Ativan 2mg iv push was administered with moderate result. Willcontinue to monitor.
[2021-03-03 04:41] LABS: BASOPHILS ABSOLUTE AUTO 0.12 K/mm3 (0.00-0.23); BASOPHILS PERCENT AUTO 1 % (0-2); EOSINOPHILS ABSOLUTE AUTO 0.88 K/mm3 (0.00-0.68); EOSINOPHILS PERCENT AUTO 6 % (0-6); Hematocrit 33.2 % (37.0-53.0); Hemoglobin 10.6 g/dL (13.5-17.5); IMMATURE GRAN ABSOLUTE AUTO 0.73 K/mm3 (0.00-0.10); IMMATURE GRAN PERCENT AUTO 5 % (0-1); LYMPHOCYTES ABSOLUTE AUTO 1.25 K/mm3 (0.84-5.20); LYMPHOCYTES PERCENT AUTO 9 % (21-46); MONOCYTES ABSOLUTE AUTO 0.79 K/mm3 (0.16-1.47); MONOCYTES PERCENT AUTO 6 % (4-13); Mean Corpuscular HGB 29.3 pg (26.0-34.0); Mean Corpuscular HGB Conc 31.9 g/dL (31.5-36.5); Mean Corpuscular Volume 92 fL (80-100); Mean Platelet Volume 10.6 fL (9.1-12.4); NEUTROPHILS PERCENT AUTO 73 % (41-73); NRBC ABSOLUTE 0.08 K/mm3 (0.00-0.02); NRBC Auto 0.6 /100 WBC (0.0-0.2); Platelet Count 323 K/mm3 (150-400); RDW Coefficient Variation 14.8 % (11.7-14.2); RDW Standard Deviation 49.7 fL (35.1-46.3); Red Blood Cell Count 3.62 M/mm3 (4.30-5.90); White Blood Cell Count 13.87 K/mm3 (4.00-11.30)
[2021-03-03 04:56] LABS: Anion Gap 1 mmol/L (6-16); Blood Urea Nitrogen 27 mg/dL (8-24); Bun/Creatinine Ratio 63.4 (12.0-20.0); CO2, Blood 36 mmol/L (21-32); Calcium, Blood 7.5 mg/dL (8.5-10.1); Chloride, Blood 106 mmol/L (98-108); Creatinine, Blood 0.43 mg/dL (0.60-1.20); Glomerular Filtration Rate >60 (60-); Glucose, Blood 133 mg/dL (70-99); Magnesium, Blood 2.3 mg/dL (1.6-2.4); Potassium, Blood 3.5 mmol/L (3.5-5.5); Sodium, Blood 143 mmol/L (136-145)
--- NOTE | 2021-03-03 06:16 | NUR ---
Patient remained vented, Suctioned for moderate amount of thin clear secretion.HR above 100 during this shift. Patient's temperatue was above 100 and tylenol 650mg was administered with moderate result. During this shift patient's was using doing abdominal breathing, over breathing the vent but his saturation remained above 92%, PRN Ativan 2mg iv was administered twice. Moved his bowel twice. Will continue to monitor
--- NOTE | 2021-03-03 15:53 | NUR ---
I visit with patient's spouse, Cecy in patient's rm. She explains the ups and downs of the mediacl reports she receives from doctors and RNs and how this effects her emotionally. She talks about how the family is coping and how hard it is to see her strong and stable rock lying there helpless. She states that he would hate being on a vent and hate being in bed and would strongly ubject if he could. I provide therapeutic listening and prayer. Cecy responds well and voices how encouraged she is by spiritual care visits. I will continue to assist the family process the difficulty of this situation.
--- NOTE | 2021-03-03 18:52 | NUR ---
Mr. Oliveira remains on the ventilator via tracheotomy. He is also unresponsive and does not make any purposeful movements. The patient was taken to CT scan of the head today. Mr Oliveira is sedated with propofol at 30mcgs and precedex at 0.7mcgs. Fentanyl IV drip was been discontinued. Surgery was consulted to evaluate for PEG tube placement All lines, Dobhoff, PICC line, peripheral IV, and linton remain intact. The patient remains febrile and was given tylenol and ice packs for relief.
--- NOTE | 2021-03-03 20:59 | NUR ---
Assumed care at about 1900. Patient remained vented and sedated. Patient's temp between 100.0 to 101.1 F. Tylenol given by previous shift is less than 3 hours. Will continue to monitor
[2021-03-04 05:50] LABS: BASOPHILS ABSOLUTE AUTO 0.05 K/mm3 (0.00-0.23); BASOPHILS PERCENT AUTO 1 % (0-2); EOSINOPHILS ABSOLUTE AUTO 1.23 K/mm3 (0.00-0.68); EOSINOPHILS PERCENT AUTO 12 % (0-6); Hematocrit 26.4 % (37.0-53.0); Hemoglobin 8.7 g/dL (13.5-17.5); IMMATURE GRAN ABSOLUTE AUTO 0.53 K/mm3 (0.00-0.10); IMMATURE GRAN PERCENT AUTO 5 % (0-1); LYMPHOCYTES ABSOLUTE AUTO 1.69 K/mm3 (0.84-5.20); LYMPHOCYTES PERCENT AUTO 16 % (21-46); MONOCYTES ABSOLUTE AUTO 0.54 K/mm3 (0.16-1.47); MONOCYTES PERCENT AUTO 5 % (4-13); Mean Corpuscular HGB 30.7 pg (26.0-34.0); Mean Corpuscular Volume 93 fL (80-100); Mean Platelet Volume 10.6 fL (9.1-12.4); NEUTROPHILS ABSOLUTE AUTO 6.66 K/mm3 (1.96-9.15); NEUTROPHILS PERCENT AUTO 62 % (41-73); NRBC ABSOLUTE 0.05 K/mm3 (0.00-0.02); NRBC Auto 0.5 /100 WBC (0.0-0.2); Platelet Count 242 K/mm3 (150-400); RDW Coefficient Variation 15.4 % (11.7-14.2); RDW Standard Deviation 50.8 fL (35.1-46.3); Red Blood Cell Count 2.83 M/mm3 (4.30-5.90)
[2021-03-04 06:28] LABS: Anion Gap 6 mmol/L (6-16); Blood Urea Nitrogen 22 mg/dL (8-24); Bun/Creatinine Ratio 47.2 (12.0-20.0); CO2, Blood 30 mmol/L (21-32); Calcium, Blood 7.4 mg/dL (8.5-10.1); Chloride, Blood 105 mmol/L (98-108); Creatinine, Blood 0.47 mg/dL (0.60-1.20); Glomerular Filtration Rate >60 (60-); Glucose, Blood 109 mg/dL (70-99); Potassium, Blood 3.2 mmol/L (3.5-5.5); Sodium, Blood 141 mmol/L (136-145)
--- NOTE | 2021-03-04 07:17 | NUR ---
Patient vented , sedated but hyperventilating. His sbp was low between 110 to 86. Lopressor 25mg was held this morning. No BM. MD was made aware of Hemoglobin 8.6 today from 10.2 yesterday. Suctioned for moderate amount of thin moderate clear secretion via his trach. Report given to incoming RN.
[2021-03-04 10:28] LABS: Magnesium, Blood 2.3 mg/dL (1.6-2.4); Phosphorus, Blood 2.4 mg/dL (2.5-4.9)
--- NOTE | 2021-03-04 20:20 | NUR ---
Assumed care for patient. Vented. HR above 100 and his temperature is 101.2. Patient also hyperventilating and ativan 2mg iv was administered. Ice packs applied on him. Will javy to monitor
[2021-03-05 05:54] LABS: BASOPHILS PERCENT AUTO 1 % (0-2); EOSINOPHILS ABSOLUTE AUTO 1.57 K/mm3 (0.00-0.68); EOSINOPHILS PERCENT AUTO 12 % (0-6); Hematocrit 29.8 % (37.0-53.0); IMMATURE GRAN ABSOLUTE AUTO 0.68 K/mm3 (0.00-0.10); IMMATURE GRAN PERCENT AUTO 5 % (0-1); LYMPHOCYTES ABSOLUTE AUTO 1.65 K/mm3 (0.84-5.20); LYMPHOCYTES PERCENT AUTO 12 % (21-46); MONOCYTES ABSOLUTE AUTO 0.87 K/mm3 (0.16-1.47); MONOCYTES PERCENT AUTO 6 % (4-13); Mean Corpuscular HGB 28.1 pg (26.0-34.0); Mean Corpuscular HGB Conc 30.2 g/dL (31.5-36.5); Mean Corpuscular Volume 93 fL (80-100); Mean Platelet Volume 9.9 fL (9.1-12.4); NEUTROPHILS ABSOLUTE AUTO 8.71 K/mm3 (1.96-9.15); NEUTROPHILS PERCENT AUTO 64 % (41-73); NRBC ABSOLUTE 0.06 K/mm3 (0.00-0.02); NRBC Auto 0.4 /100 WBC (0.0-0.2); Platelet Count 302 K/mm3 (150-400); RDW Coefficient Variation 15.4 % (11.7-14.2); RDW Standard Deviation 51.2 fL (35.1-46.3); White Blood Cell Count 13.58 K/mm3 (4.00-11.30)
[2021-03-05 06:15] LABS: Anion Gap 1 mmol/L (6-16); Blood Urea Nitrogen 18 mg/dL (8-24); Bun/Creatinine Ratio 37.7 (12.0-20.0); CO2, Blood 35 mmol/L (21-32); Calcium, Blood 8.2 mg/dL (8.5-10.1); Chloride, Blood 108 mmol/L (98-108); Creatinine, Blood 0.48 mg/dL (0.60-1.20); Glomerular Filtration Rate >60 (60-); Glucose, Blood 112 mg/dL (70-99); Phosphorus, Blood 2.6 mg/dL (2.5-4.9); Potassium, Blood 3.7 mmol/L (3.5-5.5); Sodium, Blood 144 mmol/L (136-145)
--- NOTE | 2021-03-05 06:49 | NUR ---
Patient maintained saturation above 92% during the shift. Suctioned for thick petty secretion viaaaa his trach. Tylenol 650mg was administered one time for his core temp above 101.0F. He was given a cold bath with ice pack placed on him. Received his prescribed colace but no bowel movement.Report given to incoming RN.
--- NOTE | 2021-03-05 14:02 | NUR ---
03/05/21 1402 Raul Briceno See Anesthesia record DR DOUGLAS
[2021-03-05 14:39] LABS: Albumin, Blood 1.7 g/dL (3.4-5.0); Albumin/Globulin Ratio 0.4 (0.8-1.8); Bilirubin, Direct 0.1 mg/dL (0.0-0.3); Bilirubin, Indirect 0.2 mg/dL (0.1-0.7); Bilirubin, Total 0.3 mg/dL (0.1-1.0); Globulin, Blood 4.3 g/dL (2.2-4.0)
--- NOTE | 2021-03-05 20:00 | NUR ---
Assumed care for patient at 1900. Vented, responding by only coughing during suctioning. core temp is above 101.3F. Suctioned for thick moderate secretion from his trach and repositioned.
[2021-03-06 04:16] LABS: BASOPHILS ABSOLUTE AUTO 0.05 K/mm3 (0.00-0.23); BASOPHILS PERCENT AUTO 0 % (0-2); EOSINOPHILS PERCENT AUTO 13 % (0-6); Hematocrit 28.8 % (37.0-53.0); Hemoglobin 8.7 g/dL (13.5-17.5); IMMATURE GRAN ABSOLUTE AUTO 0.57 K/mm3 (0.00-0.10); IMMATURE GRAN PERCENT AUTO 4 % (0-1); LYMPHOCYTES ABSOLUTE AUTO 1.46 K/mm3 (0.84-5.20); LYMPHOCYTES PERCENT AUTO 10 % (21-46); MONOCYTES ABSOLUTE AUTO 0.93 K/mm3 (0.16-1.47); MONOCYTES PERCENT AUTO 7 % (4-13); Mean Corpuscular HGB 28.4 pg (26.0-34.0); Mean Corpuscular HGB Conc 30.2 g/dL (31.5-36.5); Mean Corpuscular Volume 94 fL (80-100); Mean Platelet Volume 10.1 fL (9.1-12.4); NEUTROPHILS ABSOLUTE AUTO 9.25 K/mm3 (1.96-9.15); NEUTROPHILS PERCENT AUTO 66 % (41-73); NRBC ABSOLUTE 0.05 K/mm3 (0.00-0.02); NRBC Auto 0.4 /100 WBC (0.0-0.2); Platelet Count 321 K/mm3 (150-400); RDW Coefficient Variation 15.8 % (11.7-14.2); RDW Standard Deviation 52.3 fL (35.1-46.3); Red Blood Cell Count 3.06 M/mm3 (4.30-5.90); White Blood Cell Count 14.06 K/mm3 (4.00-11.30)
[2021-03-06 04:32] LABS: Albumin, Blood 1.6 g/dL (3.4-5.0); Anion Gap 3 mmol/L (6-16); Blood Urea Nitrogen 15 mg/dL (8-24); Bun/Creatinine Ratio 30.9 (12.0-20.0); CO2, Blood 34 mmol/L (21-32); Chloride, Blood 106 mmol/L (98-108); Creatinine, Blood 0.49 mg/dL (0.60-1.20); Glomerular Filtration Rate >60 (60-); Glucose, Blood 117 mg/dL (70-99); Phosphorus, Blood 2.7 mg/dL (2.5-4.9); Potassium, Blood 3.6 mmol/L (3.5-5.5); Sodium, Blood 143 mmol/L (136-145)
--- NOTE | 2021-03-06 06:18 | NUR ---
Patient remain unresponsive. ICe pack applied on patient and Tylenol 650 was also administered for core temp above 101.F. Labatalol 10mg IV also administered for sbp above 180. Tube feed held at 0600 for possible peg placement today,
--- NOTE | 2021-03-06 10:15 | NUR ---
ASSUMED PT CARE THIS MORNING. PT ON SBT 03/13 30%, TOLERTING WELL. PERRLA, PT OPENS EYES, BUT NO TRACKING OR RESPONSE TO NOX STIM IN EXTREMITIES. COUGH AND GAG PRESENT. NO GTTS. FC IN PLACE. PT REPOSITIONED. TF OFF PENDING POSSIBLE PEG PLACEMENT TODAY.
--- NOTE | 2021-03-06 10:58 | NUR ---
PEEP INCREASED BACK TO 10 SECONDARY TO PT DESATTING 88%. IR CALLED TO CLARIFY IF PT IS GOING TO GET PEG PLACED TODAY, DR FIGUEROA NOT WORKING TODAY. MD BOBO UPDATED.
[2021-03-06 13:31] LABS: Source, Urine Catheter
[2021-03-06 13:40] LABS: Appearance, Urine Clear (Clear); Bilirubin, Urine Neg (Neg); Blood, Urine Neg (Neg); Color, Urine Yellow (P-Yellow); Glucose Qualitative, Urine Neg (Neg); Ketones, Urine Neg (Neg); Leukocyte Esterase, Urine Neg (Neg); Nitrite, Urine Neg (Neg); Protein, Urine Neg (Neg); Specific Gravity, Urine 1.005 (1.003-1.022); Urobilinogen, Urine NORM (Normal)
--- NOTE | 2021-03-06 18:15 | NUR ---
PT OPENS EYES, APPEARS TO MAKE EYE CONTACT AT TIMES, BUT DOES NOT TRACK AND ELIER IF EYE CONTACT IS INTENTIONAL OR COINCIDENCE. BLINK TO THREAT PRESENT, COUGH, GAG PRESENT, NO RESPONSE TO NOXIOUS STIM ON EXTREMITIES. ARTEAGA CULTURES DRAWN TODAY SECONDARY TO LOW GRADE FEVERS ONGOING DESPITE COOLING MEASURES. PT ON SBT ALL DAY, ABLE TO WEAN FOR 1012 TO 10, ATTEMPTED TO DO 10/8 BUT PT UNABLE TO MAINTAIN O2 SATS. FIO2 30%. PEG ON HOLD UNTIL AFTER THE WEEKEND, PT RESTARTED ON TF AT GOAL AND LOVENOX. PTS IN TO SEE PT TODAY. REPOSITIONED Q 2 HRS.
[2021-03-07 04:08] LABS: BASOPHILS ABSOLUTE AUTO 0.08 K/mm3 (0.00-0.23); BASOPHILS PERCENT AUTO 1 % (0-2); EOSINOPHILS ABSOLUTE AUTO 2.69 K/mm3 (0.00-0.68); EOSINOPHILS PERCENT AUTO 16 % (0-6); Hematocrit 26.5 % (37.0-53.0); IMMATURE GRAN ABSOLUTE AUTO 0.51 K/mm3 (0.00-0.10); IMMATURE GRAN PERCENT AUTO 3 % (0-1); LYMPHOCYTES ABSOLUTE AUTO 1.65 K/mm3 (0.84-5.20); LYMPHOCYTES PERCENT AUTO 10 % (21-46); MONOCYTES ABSOLUTE AUTO 1.08 K/mm3 (0.16-1.47); MONOCYTES PERCENT AUTO 6 % (4-13); Mean Corpuscular HGB 28.4 pg (26.0-34.0); Mean Corpuscular HGB Conc 30.2 g/dL (31.5-36.5); Mean Corpuscular Volume 94 fL (80-100); Mean Platelet Volume 10.2 fL (9.1-12.4); NEUTROPHILS ABSOLUTE AUTO 10.76 K/mm3 (1.96-9.15); NEUTROPHILS PERCENT AUTO 64 % (41-73); NRBC ABSOLUTE 0.06 K/mm3 (0.00-0.02); NRBC Auto 0.4 /100 WBC (0.0-0.2); Platelet Count 341 K/mm3 (150-400); RDW Coefficient Variation 15.9 % (11.7-14.2); RDW Standard Deviation 52.7 fL (35.1-46.3); Red Blood Cell Count 2.82 M/mm3 (4.30-5.90); White Blood Cell Count 16.77 K/mm3 (4.00-11.30)
[2021-03-07 04:25] LABS: Anion Gap 3 mmol/L (6-16); Blood Urea Nitrogen 24 mg/dL (8-24); Bun/Creatinine Ratio 50.7 (12.0-20.0); CO2, Blood 36 mmol/L (21-32); Calcium, Blood 8.2 mg/dL (8.5-10.1); Chloride, Blood 104 mmol/L (98-108); Creatinine, Blood 0.47 mg/dL (0.60-1.20); Glomerular Filtration Rate >60 (60-); Glucose, Blood 133 mg/dL (70-99); Potassium, Blood 2.9 mmol/L (3.5-5.5); Sodium, Blood 143 mmol/L (136-145)
--- NOTE | 2021-03-07 05:51 | NUR ---
PT HAS NO SIGNIFICANT CHANGES THROUGHOUT THE NIGHT WITH THESE EXCEPTIONS; PT HAS EPISODE OF AGITATION WITH INCREASED HR AND RR IN THE 40'S TO 50'S, WITH NO CHANGE IN MENTATION, ATIVAN GIVEN AND EPISODE RESOLVED, T-MAX 100.8 DESPITE PO TYLENOL, ICE PACKS TO AXILLA AND GROIN, FANS PLACED, AND ROOM TEMP DECREASED. CX PENDING. PT CONTINUES TO HAVE THICK WHITE SECRETIONS SX FROM TRACH. TRACH CARE DONE AND INNER CANNULA CHANGED. EDEMA IN UPPER EXT SLIGHTLY IMPROVED WITH ELEVATION. WILL CONTINUE TO MONITOR AND REPORT TO ONCOMING SHIFT.
--- NOTE | 2021-03-07 09:57 | NUR ---
PT ABLE TO OPEN EYES, MAINTAIN EYE CONTACT, STICK OUT TONGUE TO COMMAND. NO MOVEMENT TO EXTREMITIES. PT ON SBT 10/5 40%, TOLERATING WELL. MD BOBO HAS BEEN IN TO SEE PT AND NOTE THIS IMPROVEMENT IN COGNITION. PT CONTINUES TO HAVE LOW GRADE FEVERS, WBC UP. K BEING REPLACED PER PROTOCOL. DOBB STACY AND FC INTACT.
--- NOTE | 2021-03-07 11:36 | NUR ---
PT CHANGED TO SBT 5/5 FI02 40% AT MDS REQUEST. PT HR GOES IN TO SVT 170S, FI02 INCREASED TO 100%, DISCUSSED THIS WITH MD BOBO. GAVE 2 MG ATIVAN, HR LOWERS TO 100S FOR A PERIOD BUT THEN BACK TO 170S. RESP IN 30S, O2 92% AND ABOVE. GIVEN 5MG METOPROLOL IV SLOW PUSH, HR RESOLVES, NOW ORDERS OBTAINED.
--- NOTE | 2021-03-07 18:03 | NUR ---
MAJOR CHANGES THIS SHIFT INCLUDE THAT PT ABLE TO OPEN EYES, MAINTAIN EYE CONTACT, NOD YES/NO TO QUESTIONS, FOLLOW SIMPLE COMMAND OF "STICK OUT YOUR TONGUE," AND VERY SLIGHT MOVEMENT TO BILATERAL HANDS ON COMMMAND. PT SBT ALL DAY TODAY, ABLE TO WEAN TO 5/5 40%. PT ON TRACH COLLAR FOR MULTIPLE HOURS. COPIOUS AMOUNT THICK BEIGE SPUTUM EXPECTORATED AND SUCTIONED VIA TRACH. MEDS ADJUSTED TODAY BY . K REPLACED, CAME BACK 4.1. IVABX STARTED FOR SPUTUM CULUTRES, MD BOBO UPDATED ON CRITICAL VALUE OF GRAM POSSIVE COCCI IN CHAINS BC. T MAX 101.1, COOLING MEASURES AND ACETAMINOPHEN UTLIIZED. PT IN TO VISIT TODAY. PT REPOSITIONED Q 2 HRS.
--- NOTE | 2021-03-07 20:00 | NUR ---
BEDBATH COMPLETE WITH COOL WATER TO HELP FEVER. COOLING BLANKET IS PLACED UNDER PATIENT AND RECTAL TEMP PROBE PLACED DUE TO AZAR TEMP PROBE NO LONGER FUNCTIONAL.
--- NOTE | 2021-03-07 21:00 | NUR ---
DR LOPEZ CALLED FOR PT'S ELEVATED TEMP AND HR. WILL TRY IBUPROPHEN PO AND FENTANYL IV. IF NO IMPROVEMENT IN 1 HOUR, WILL TRY ONE TIME DOSE OF LABETALOL.
--- NOTE | 2021-03-07 23:12 | NUR ---
DR NGUYEN CONSULTED FOR INCREASED TEMP, HR AND WOB. OK TO INCREASE PRESSURE SUPPORT AND PEEP AND WILL START PROPOFOL.
--- NOTE | 2021-03-08 00:49 | NUR ---
ASSUMED CARE OF PT AT 0000 THIS NIGHT. REPORT RECEIVED FROM BRIANNA ROCKWELL. PT PRESENTS IN BED. INTUBATED: PS 03/13 WITH 35 PERCENT FIO2. SATURATIONS 100 PERCENT. DID DECREASE FIO2 TO 30 PERCENT. PT MAINTAINS 97 PERCENT SATURATIONS. PT HAS BEEN PASSING FLATUS. AZAR CATHETER PATENT TO YELLOW URINE. Q.S. LUNGS COARSE THROUGHOUT. DIMINISHED IN BASES. MORESO IN LEFT LOWER BASE. WILL REVIEW CHART AND PLAN OF CARE FOR THIS PT.
[2021-03-08 04:57] LABS: Mean Corpuscular HGB Conc 30.5 g/dL (31.5-36.5); Mean Corpuscular Volume 95 fL (80-100); Mean Platelet Volume 10.6 fL (9.1-12.4); NRBC ABSOLUTE 1.81 K/mm3 (0.00-0.02); NRBC Auto 5.5 /100 WBC (0.0-0.2); Platelet Count 475 K/mm3 (150-400); RDW Coefficient Variation 16.2 % (11.7-14.2); RDW Standard Deviation 52.8 fL (35.1-46.3); Red Blood Cell Count 1.83 M/mm3 (4.30-5.90); White Blood Cell Count 32.78 K/mm3 (4.00-11.30)
[2021-03-08 04:58] LABS: Hematocrit 17.4 % (37.0-53.0); Hemoglobin 5.3 g/dL (13.5-17.5)
[2021-03-08 05:10] LABS: BAND PERCENT MAN 14 % (0-8); BASOPHILS PERCENT MAN 0 % (0-2); EOSINOPHILS ABSOLUTE MAN 2.95 K/mm3 (0.00-0.68); EOSINOPHILS PERCENT MAN 9 % (0-6); LYMPHOCYTES ABSOLUTE MAN 1.63 K/mm3 (0.84-5.20); LYMPHOCYTES PERCENT MAN 5 % (21-46); MONOCYTES ABSOLUTE MAN 0.98 K/mm3 (0.16-1.47); MONOCYTES PERCENT MAN 3 % (4-13); MYELOCYTE ABSOLUTE MAN 0.32 K/mm3 (0.00-0.00); MYELOCYTE PERCENT MAN 1 % (0-0); NEUTROPHILS ABSOLUTE MAN 26.87 K/mm3 (1.96-9.15); SEG NEUTROPHILS PERCENT MAN 68 % (41-73); TOTAL CELLS COUNTED 100
[2021-03-08 05:17] LABS: Anion Gap 5 mmol/L (6-16); Blood Urea Nitrogen 41 mg/dL (8-24); CO2, Blood 30 mmol/L (21-32); Calcium, Blood 7.8 mg/dL (8.5-10.1); Chloride, Blood 111 mmol/L (98-108); Creatinine, Blood 0.47 mg/dL (0.60-1.20); Ferritin, Serum 316 ng/mL (26-388); Glomerular Filtration Rate >60 (60-); Glucose, Blood 189 mg/dL (70-99); Iron Serum 61 ug/dL (65-175); Percent Saturation 34.7 % (20.0-50.0); Sodium, Blood 146 mmol/L (136-145); Total Iron Binding Capacity 176 ug/dL (250-450)
--- NOTE | 2021-03-08 05:40 | NUR ---
PT HAS BEEN PLACED ON PROPOFOL DRIP AT LOW RATE OF 10 MCG/KG/MIN. NOTING, THE BLOOD PRESSURES BEGAN TO DECREASE WITH SBP AT 90. THIS WAS HELD. PT HAS PASS MUCH MORE FLATUS AND BECOMING VERY ODORFOROUS. CALL FROM LAB TO INFORM THAT THE PT'S HGB HAD DROPPED TO 5.3 FROM > 8.0 THE PREVIOUS MORNING. HEART RATE HAS BEEN INCREASING TO [address] BPM. CALL MADE [address] PARISI TO RELAY THE DROP IN HGB. ORDERS RECEIVED. CALL MADE TO [place], PT'S , AND VERBAL CONSENT FOR BLOOD PRODUCTS RECEIVED. DID GIVE UPDATE TO [place]. AWAITING BLOOD PRODUCTS FROM LAB. HAVE RESTARTED PROPOFOL AT 15 MCG'S/KG/MIN. HAVE SUCTIONED PT PER TRACH WITH RETURN OF LIGHT MILIAN COLORED SECRETIONS. PT HAS MAINTAINED > 90 PERCENT OXYGEN SATURATIONS WITH CURRENT VENT SETTINGS. WILL CONTINUE TO MONITOR PT. WILL TRANSFUSE PRBC'S AND WILL REPORT OFF TO ONCOMING RN.
--- NOTE | 2021-03-08 07:32 | NUR ---
ASSUMED PT CARE THIS AM. PT HAS RECEIVED 1 UNIT PRBC RAPID INFUSION SECONDARY TO SIG DROP IN H/H THIS MORNING. 2ND UNIT STARTED, RUNNING AT 100 ML HR FOR FIRST 15 MIN WHILE RN IN ROOM, NO ACUTE SX OF TRANSFUSION RXN NOTED, RATE INCREASED TO 250 MLH/HR. PT STARTED ON PROP LAST NIGHT, RUNNING AT 20 MCG/KG/MIN WHEN RN ASSUMES CARE. PT HR ST 140S, RESP 3O-40, TEMP DOWN TO 99.7, WBC WITH SIG JUMP THIS MORNING. LUNGS REMAIN CLEAR, HOWEVER THICK BROWN SPUTUM SUCTIONED FROM TRACH. NO BM THIS AM, BUT NOC SHIFT REPORTS PT PASSING LOTS OF FLATUS, PT HAS HX OF POSITIVE GUIAC STOOLS THIS ADMISSION.
--- NOTE | 2021-03-08 08:03 | NUR ---
MD BOBO CALLED TO UPDATE ON PT STATUS, SPECIFICALLY H/H DROP, 2 UNITS RBC; 2 BC POSITIVE, STARTED ON VANCO; PT HYPERVENTILATING, ON PROP BUT PRESSURES DROPPING. ORDER OBTAINED TO START LEVO AND KEEP PT SEDATED, MD REVIEWING CHART, WILL COME TO ASSESS LAURA.
[2021-03-08 11:05] LABS: Hematocrit 21.5 % (37.0-53.0); Mean Corpuscular HGB 29.9 pg (26.0-34.0); Mean Corpuscular HGB Conc 32.6 g/dL (31.5-36.5); Mean Corpuscular Volume 92 fL (80-100); Mean Platelet Volume 10.9 fL (9.1-12.4); NRBC ABSOLUTE 2.25 K/mm3 (0.00-0.02); NRBC Auto 7.4 /100 WBC (0.0-0.2); Platelet Count 390 K/mm3 (150-400); RDW Coefficient Variation 15.5 % (11.7-14.2); RDW Standard Deviation 48.2 fL (35.1-46.3); Red Blood Cell Count 2.34 M/mm3 (4.30-5.90); White Blood Cell Count 30.43 K/mm3 (4.00-11.30)
[2021-03-08 11:27] LABS: BAND PERCENT MAN 3 % (0-8); BASOPHILS PERCENT MAN 2 % (0-2); EOSINOPHILS ABSOLUTE MAN 1.21 K/mm3 (0.00-0.68); EOSINOPHILS PERCENT MAN 4 % (0-6); LYMPHOCYTES ABSOLUTE MAN 2.43 K/mm3 (0.84-5.20); LYMPHOCYTES PERCENT MAN 8 % (21-46); METAMYELOCYTE PERCENT MAN 1 % (0-0); MONOCYTES ABSOLUTE MAN 0.91 K/mm3 (0.16-1.47); MONOCYTES PERCENT MAN 3 % (4-13); MYELOCYTE PERCENT MAN 1 % (0-0); NEUTROPHILS ABSOLUTE MAN 24.64 K/mm3 (1.96-9.15); SEG NEUTROPHILS PERCENT MAN 78 % (41-73); TOTAL CELLS COUNTED 100
--- NOTE | 2021-03-08 12:38 | NUR ---
DISCUSSED WITH MD BOBO SKIN BREAKDOWN NOTED UNDER TRACH SITE, ORDER OBTAINED TO REMOVE TRACH SUTURES, DRESSING PLACED TO PREVENT FURTHER SKIN BREAKDOWN. PHILOSOPHY LECTURER NOTIFIED. ORDER ADDED FOR FENT PRN PAIN. PT CONTINUES TO BE TACHYCARDIC WITH HR 130S, BP STABLE, LOW GRADE FEVER, LOW UO. MD BOBO UPDATED, IN TO ASSESS PT.
[2021-03-08 15:57] LABS: Hematocrit 21.1 % (37.0-53.0); Hemoglobin 6.8 g/dL (13.5-17.5)
--- NOTE | 2021-03-08 18:14 | NUR ---
PT SEDATED ON THIS SHIFT WITH PROP SECONDARY TO HYPERVENTILATION. PROP AT 25MCG/KG/MIN AT END OF SHIFT. PT NOW LONGER FEBRILE. VANCO AND ZOSYN STARTED. PT RECEIVED 2 UNITS PRBCS THIS AM, FOLLOW UP H/H 12/24, THEN HEMO DOWN TO 6.8. 1 ADDITIONAL UNIT PRBC INFUSING NOW PER MD ORDER. HR TACHYCARDIC THROUGHOUT SHIFT IN 130S, NO HR CHANGE WITH ANALGESIA OR SEDATION, BP STABLE AFTER 2 UNITS, LEVO ON SB SECONDARY TO HYPOTENSION. MD BOBO INFORMED THAT PT HAD BLACK TARRY STOOLS X 2, DENIES NEED FOR GUIAC, CONSULT ORDERED FOR GI FOR TOMORROW, STARTED ON PROTONIX BID. TF AT GOAL. LOW UO FOR MAJORITY OF SHIFT, BUT IMPROVES BY END OF SHIFT. SUTURES REMOVED FROM TRACH, AND DRESSING PLACED SECONDARY TO S/SX SKIN BREAKDOWN. UPDATED AT BEDSIDE BY RN AND .
--- NOTE | 2021-03-08 20:45 | NUR ---
DR WILLIS CALLS FOR UPDATE ON PT. HE WILL CONSULT IN AM. ORDERS FOR PROTONIX BOLUS AND GTT RECEIVED. WILL HOLD Cyanogen.
[2021-03-08 21:44] LABS: Hematocrit 21.4 % (37.0-53.0)
--- NOTE | 2021-03-08 21:50 | NUR ---
DR BOBO UPDATED WITH H&H. WILL TRANSFUSE 1 UNIT PRBC'S NOW AND IF AM HBG BELOW 7 WILL TRANSFUSE 1 UNIT PRBC'S, OR 2 UNITS PRBC'S IF HGB 5 OR LESS.
--- NOTE | 2021-03-08 23:00 | NUR ---
RECTAL TEMP PROBE PLACED.
[2021-03-09 01:37] LABS: Vancomycin, Trough 9.6 ug/mL (5.0-10.0)
[2021-03-09 03:29] LABS: Hematocrit 22.4 % (37.0-53.0); Hemoglobin 7.4 g/dL (13.5-17.5); Mean Corpuscular Volume 91 fL (80-100); Mean Platelet Volume 10.2 fL (9.1-12.4); NRBC ABSOLUTE 1.43 K/mm3 (0.00-0.02); NRBC Auto 5.3 /100 WBC (0.0-0.2); Platelet Count 343 K/mm3 (150-400); RDW Coefficient Variation 15.5 % (11.7-14.2); RDW Standard Deviation 47.3 fL (35.1-46.3); Red Blood Cell Count 2.47 M/mm3 (4.30-5.90); White Blood Cell Count 27.05 K/mm3 (4.00-11.30)
[2021-03-09 03:49] LABS: Alanine Aminotransfer (ALT/SGP 36 U/L (12-78); Albumin, Blood 1.5 g/dL (3.4-5.0); Albumin/Globulin Ratio 0.4 (0.8-1.8); Alk Phos 55 U/L (50-136); Anion Gap 4 mmol/L (6-16); Aspartate Aminotrans (AST/SGOT 27 U/L (12-37); Bilirubin, Total 0.4 mg/dL (0.1-1.0); Blood Urea Nitrogen 33 mg/dL (8-24); Bun/Creatinine Ratio 60.2 (12.0-20.0); CO2, Blood 31 mmol/L (21-32); Calcium, Blood 8.2 mg/dL (8.5-10.1); Chloride, Blood 113 mmol/L (98-108); Creatinine, Blood 0.55 mg/dL (0.60-1.20); Globulin, Blood 3.5 g/dL (2.2-4.0); Glomerular Filtration Rate >60 (60-); Glucose, Blood 121 mg/dL (70-99); Magnesium, Blood 2.3 mg/dL (1.6-2.4); Phosphorus, Blood 2.2 mg/dL (2.5-4.9); Potassium, Blood 3.2 mmol/L (3.5-5.5); Sodium, Blood 148 mmol/L (136-145)
[2021-03-09 06:02] LABS: BAND PERCENT MAN 7 % (0-8); BASOPHILS ABSOLUTE MAN 0.27 K/mm3 (0.00-0.23); BASOPHILS PERCENT MAN 1 % (0-2); EOSINOPHILS ABSOLUTE MAN 4.59 K/mm3 (0.00-0.68); EOSINOPHILS PERCENT MAN 17 % (0-6); LYMPHOCYTES ABSOLUTE MAN 1.89 K/mm3 (0.84-5.20); LYMPHOCYTES PERCENT MAN 7 % (21-46); MONOCYTES ABSOLUTE MAN 2.16 K/mm3 (0.16-1.47); MONOCYTES PERCENT MAN 8 % (4-13); MYELOCYTE ABSOLUTE MAN 1.08 K/mm3 (0.00-0.00); MYELOCYTE PERCENT MAN 4 % (0-0); NEUTROPHILS ABSOLUTE MAN 17.04 K/mm3 (1.96-9.15); SEG NEUTROPHILS PERCENT MAN 56 % (41-73); TOTAL CELLS COUNTED 100
--- NOTE | 2021-03-09 06:04 | NUR ---
PT IS TRANSFUSED 1 ADDITIONAL UNIT PRBC'S LAST NIGHT FOR A TOTAL OF 4 UNITS DUE TO HGB OF 7. AM H/H 7.4/22.4. PT REMAINS LIGHTLY SEDATED ON PROPOFOL AT 25MCG/KG/MIN. HE OPENS HIS EYES SPONTANEOUSLY BUT DOES NOT TRACK OR FOLLOW ANY COMMANDS. HE IS SOMETIMES OBSERVED TO ROCK HIS LEGS BACK AND FORTH BUT DOES NOT LIFT ARMS. LS AND VENT SETTINGS UNCHANGED. FEWER SECRETIONS SX FROM TRACH. BT ACTIVE, NO STOOLS OVERNIGHT. PLAN FOR DR WILLIS TO SEE PATIENT IN AM. PROTONIX GTT AND TF ON HOLD PER HIS ORDER. BP STABLE OFF LEVOPHED. Alea RIDER RUNNING FOR K 3.2 AND PHOS 2.2. WILL CONTINUE TO MONITOR AND REPORT TO ONCOMING SHIFT.
--- NOTE | 2021-03-09 10:00 | NUR ---
PT PLACED ON TRACH COLLAR-CUFF DEFLATED BY RT-FIO2 40% AND 8 LITERS. NO NOTED DISTRESS-SATS>90%
--- NOTE | 2021-03-09 10:04 | NUR ---
AM ASSESSMENT: PROPOFOL CONTINUES @ 25 MCG/KG/MIN. PT OPENS EYES TO VOICE. HE NODS APPROPRIATELY TO "YES" OR "NO" QUESTIONS. PT NODS "NO" WHEN ASKED IF IN PAIN. PT IS VERY WEAK AND HIS HANDS ARE SWOLLEN-HE IS NOT ABLE TO LOADING UNIT OPERATOR SEATING ON COMMAND AT THIS TIME, BUT HE DOES WIGGLE HIS TOES. TEMP 99.3-COOLING BLANKET IN PLACE. ECG SHOWS ST WITH FREQUENT PAC'S HR 120-130'S. BP STABLE. LUNGS DIMINISHED THROUGH OUT AND SLIGHTLY COARSE TO RIGHT UPPER LOBE. SATS>90% ON PS 5, PEEP 5, FIO2 40%-SATS>90% TRACH CARE DONE AND INNER CANULA CHANGED. THE LOWER PORTION OF THE TRACH HAS A PRESSURE ULCER FROM THE FLANG AND MODERATE AMOUNT OF THICK, BROWN/RED DRAINAGE NOTED- GEL PATCH PLACED TO PREVENT FRICTION. TRACH SUCTION PRODUCTIVE OF MODERATE AMOUNT OF THICK, WHITE SECRETIONS. TF HELD FOR POSSIBLE EGD LATER THIS AM. PT HAD SMALL, BLACK, TARRY STOOL. PT GIVEN PARTIAL BATH AND NEW DRY FLOW PLACED TOLERATED WELL.
--- NOTE | 2021-03-09 12:00 | NUR ---
PT REMAINS ON TRACH COLLAR-FIO2 40% & 8 LITERS. PT AWAKE AND ALERT-ATTEMPTING TO MOUTH WORDS, BUT RN UNABLE TO MAKE SENSE OF HIS WORDS AT THIS TIME. PT IS STILL NODDING APPROPRIATELY -CURRENTLY, HE SHAKES HIS HEAD "NO" WHEN ASKED IF IN PAIN. PT COUGHING UP LARGE AMOUNTS OF THICK, WHITE SECRETIONS FROM TRACH-ALSO, SUCTIONED A LARGE AMOUNT FROM THE TRACH WELL. DRAIN SPONGE CHANGED IT WAS SATURATED WITH TRACH SECRETIONS. H&H SENT. PT ASSISTED OOB TO CHAIR UTILIZNG CEILING LIFT-TOLERATED WELL.
[2021-03-09 12:47] LABS: Hematocrit 21.2 % (37.0-53.0); Hemoglobin 6.9 g/dL (13.5-17.5)
--- NOTE | 2021-03-09 15:17 | NUR ---
Spiritual care visit conducted. Patient is sitting up on the chair and patient's brother is present in the rm. I introduce myself to him and he shares about patient's improvement and his ability to communicate. His RN Elisabeth informed that patient is even able to communicate humor. I also talked with patient's spouse via phone and she tells me about her excitement about patient's progress. I will continue to remain available to patient and family.
--- NOTE | 2021-03-09 16:00 | NUR ---
PT GRIMACING AND NODDED "YES" TO PAIN @ 1445-MED WITH FENTANYL 50 MCG IVP X 1. UTILIZED CEILING LIFT TO GET PT BACK TO BED. PT BATHED, LINEN CHANGED, ORAL CARE COMPLETED. PT INCONTINENT OF LARGE AMOUNT OF BLACK, TARRY STOOL. 1 UNIT PRBC'S TRANSFUSING. RECHECK H&H @ 1999. PT CONTINUES ON TRACH COLLAR- 40%/8 LITERS-SATS>90% PT COUGHING UP LARGE AMOUNTS OF THICK, WHITE SECRETIONS FROM TRACH AND RN SUCTIONING TRACH PRN. PT CONTINUES TO BE FEBRILE AND TACHYCARDIC. HR NOW 100-120'S AND FEWER PAC'S NOTED.
--- NOTE | 2021-03-09 18:26 | NUR ---
PT RESTING QUIETLY WHEN NOT DISTURBED. AWAKENS EASILY TO VOICE ON PROPOFOL @ 25 MCG/KG/MIN. MAINTAINS SATS>90% ON TRACH COLLAR-FIO2 40% AND 8 LITERS. TF REMAINS OFF. WILL RECHECK H&H @ 1999. AZAR WITH 650 CC DARK, YELLOW URINE WITH INCREASED SEDIMENT NOTED THIS EVENING.
--- NOTE | 2021-03-09 19:54 | NUR ---
Assumed care for patient. Responds to painful stimuli. On the trach collar.Suctioned for thick moderate petty secretion via his trach. H/H sent to lab. Protonix drip infusing at 10ml/hr and propofol drip at 25mcg/kg/min (19,7ml/hr),
[2021-03-09 20:23] LABS: Hematocrit 21.2 % (37.0-53.0); Hemoglobin 7.1 g/dL (13.5-17.5)
[2021-03-10 02:04] LABS: Magnesium, Blood 2.1 mg/dL (1.6-2.4)
[2021-03-10 02:05] LABS: Anion Gap 5 mmol/L (6-16); Blood Urea Nitrogen 22 mg/dL (8-24); Bun/Creatinine Ratio 42.3 (12.0-20.0); CO2, Blood 29 mmol/L (21-32); Calcium, Blood 7.1 mg/dL (8.5-10.1); Chloride, Blood 111 mmol/L (98-108); Creatinine, Blood 0.52 mg/dL (0.60-1.20); Glomerular Filtration Rate >60 (60-); Glucose, Blood 115 mg/dL (70-99); Potassium, Blood 3.1 mmol/L (3.5-5.5); Sodium, Blood 145 mmol/L (136-145); Vancomycin, Trough 10.4 ug/mL (5.0-10.0)
[2021-03-10 05:34] LABS: Hematocrit 21.2 % (37.0-53.0); Hemoglobin 6.6 g/dL (13.5-17.5); Mean Corpuscular HGB 29.5 pg (26.0-34.0); Mean Corpuscular HGB Conc 31.1 g/dL (31.5-36.5); Mean Corpuscular Volume 95 fL (80-100); Mean Platelet Volume 10.1 fL (9.1-12.4); NRBC ABSOLUTE 0.93 K/mm3 (0.00-0.02); NRBC Auto 4.9 /100 WBC (0.0-0.2); Platelet Count 283 K/mm3 (150-400); RDW Coefficient Variation 16.8 % (11.7-14.2); RDW Standard Deviation 51.6 fL (35.1-46.3); Red Blood Cell Count 2.24 M/mm3 (4.30-5.90); White Blood Cell Count 19.06 K/mm3 (4.00-11.30)
--- NOTE | 2021-03-10 05:42 | NUR ---
At about 0100 patient had difficulty breathing. He was deep suctioned for very thick mucus plug. Also his hR went up to 190's,sinus tachy. Amiodarone bolus was administered, after which his hr came down to the low 100's. Repositioned for comfort from side to side. At this time his hemoglobin is stable and awaiting for the morning result.
[2021-03-10 05:47] LABS: Albumin, Blood 1.5 g/dL (3.4-5.0); Anion Gap 5 mmol/L (6-16); Blood Urea Nitrogen 22 mg/dL (8-24); Bun/Creatinine Ratio 40.4 (12.0-20.0); CO2, Blood 30 mmol/L (21-32); Calcium, Blood 7.7 mg/dL (8.5-10.1); Chloride, Blood 114 mmol/L (98-108); Creatinine, Blood 0.54 mg/dL (0.60-1.20); Glomerular Filtration Rate >60 (60-); Glucose, Blood 91 mg/dL (70-99); Magnesium, Blood 2.2 mg/dL (1.6-2.4); Phosphorus, Blood 2.3 mg/dL (2.5-4.9); Potassium, Blood 2.8 mmol/L (3.5-5.5); Sodium, Blood 149 mmol/L (136-145)
[2021-03-10 06:14] LABS: BASOPHILS PERCENT MAN 0 % (0-2); EOSINOPHILS ABSOLUTE MAN 1.71 K/mm3 (0.00-0.68); EOSINOPHILS PERCENT MAN 9 % (0-6); LYMPHOCYTES ABSOLUTE MAN 1.52 K/mm3 (0.84-5.20); LYMPHOCYTES PERCENT MAN 8 % (21-46); METAMYELOCYTE ABSOLUTE MAN 0.38 K/mm3 (0.00-0.00); METAMYELOCYTE PERCENT MAN 2 % (0-0); MONOCYTES ABSOLUTE MAN 1.14 K/mm3 (0.16-1.47); MONOCYTES PERCENT MAN 6 % (4-13); MYELOCYTE ABSOLUTE MAN 0.95 K/mm3 (0.00-0.00); MYELOCYTE PERCENT MAN 5 % (0-0); NEUTROPHILS ABSOLUTE MAN 13.34 K/mm3 (1.96-9.15); SEG NEUTROPHILS PERCENT MAN 70 % (41-73); TOTAL CELLS COUNTED 100
[2021-03-10 11:43] LABS: Hematocrit 24.7 % (37.0-53.0); Hemoglobin 7.9 g/dL (13.5-17.5)
[2021-03-10 14:09] LABS: ASPERGILLUS FLAVUS Negative (Neg:<1:1); ASPERGILLUS FUMIGATUS Negative (Neg:<1:1); ASPERGILLUS NIGER Negative (Neg:<1:1)
--- NOTE | 2021-03-10 15:19 | NUR ---
Spiritual care visit conducted. Patient is gone for CT scan and patient's spouse, Cecy is in patient's rm waiting for his return. She talks about the patient and recounts his COVID journey and how he states that he has no recollection of being sick at home all the way up until yesterday. She talks about his strong drive and her belief that he will work extremely hard to recover. We also talk about their Hinduism oneyda all the people that are praying for him across the [place]. I provide therapeutic listening, companionship and prayer. Cecy responds well and appears to be encouraged by the conversation and prayer. I will continue to remain available to patient and family.
--- NOTE | 2021-03-10 17:48 | NUR ---
NO REAL CHANGES WITH RANDAL FROM ASSUMING THE CARE FROM THIS MORNING AT 0700. PT WAS ON TRACH COLLAR AT 10l FOR MOST THE DAY, UP IN THE CHAIR. AFTER COMING BACK FROM THE CT OF THE ABDOMEN PT HAD A DESAT EPISODE INTO THE MID 70S SPO2. SUCTIONED HIM AND PUT HIM BACK ON MINIMUM VENT SETTINGS FOR A BREAK, AND PT WANTED TO SLEEP. PT IS ALERT AND ORIENTED X2-3. APPROPRIATE AND FOLLOW COMMANDS. ONLY DARK TARRY STOOL SMEARS, NO REAL BOWEL MOVEMENTS. 1 UNIT PRBC GIVEN THIS AM AND FOLLOW UP HBG AT 1200 WAS UP [address] AND DRAINING CLEAR YELLOW URINE WELL. PROTONIX RUNNING. STILL WAITING TO GET AHOLD OF IR FOR IVC FILTER AND POTENTIAL PEG PLACEMENT. PLACING ORDERS FOR SPEECH THERAPY TO WORK WITH PT WHILE ON TRACH COLLAR. AT BEDSIDE DURING VISITNG HOURS.
[2021-03-10 18:49] LABS: Hematocrit 23.5 % (37.0-53.0); Hemoglobin 7.6 g/dL (13.5-17.5)
--- NOTE | 2021-03-10 19:58 | NUR ---
Assumed care for patient at 1900.Responding by nodding his head to simple yes or no answers. Follow simple commands. Denied pain. No sedation infusing at this time. Patient suctioned for mininal secretion from his trach. Protonix drip infusing at 10ml/hr. Tube feed to be restarted because 1800 hemoglobin 7.6 ( stable/constant from the previous 2 labs as ordered by MD). No visible bleed noted
[2021-03-11 04:10] LABS: IMMUNOGLOBULIN E, TOTAL 189 IU/mL (6-495); M003-IGE ASPERGILLUS FUMIGATUS <0.10 kU/L (Class 0)
[2021-03-11 04:26] LABS: Hematocrit 22.1 % (37.0-53.0); Mean Corpuscular HGB 30.2 pg (26.0-34.0); Mean Corpuscular HGB Conc 31.7 g/dL (31.5-36.5); Mean Corpuscular Volume 95 fL (80-100); Mean Platelet Volume 10.2 fL (9.1-12.4); NRBC ABSOLUTE 1.28 K/mm3 (0.00-0.02); NRBC Auto 6.3 /100 WBC (0.0-0.2); Platelet Count 281 K/mm3 (150-400); RDW Coefficient Variation 17.2 % (11.7-14.2); RDW Standard Deviation 51.8 fL (35.1-46.3); Red Blood Cell Count 2.32 M/mm3 (4.30-5.90); White Blood Cell Count 20.46 K/mm3 (4.00-11.30)
[2021-03-11 04:41] LABS: Albumin, Blood 1.4 g/dL (3.4-5.0); Anion Gap 9 mmol/L (6-16); Blood Urea Nitrogen 23 mg/dL (8-24); Bun/Creatinine Ratio 46.4 (12.0-20.0); CO2, Blood 26 mmol/L (21-32); Calcium, Blood 7.1 mg/dL (8.5-10.1); Chloride, Blood 115 mmol/L (98-108); Glomerular Filtration Rate >60 (60-); Glucose, Blood 109 mg/dL (70-99); Phosphorus, Blood 3.1 mg/dL (2.5-4.9); Potassium, Blood 3.2 mmol/L (3.5-5.5); Sodium, Blood 150 mmol/L (136-145)
[2021-03-11 04:45] LABS: BAND PERCENT MAN 6 % (0-8); BASOPHILS PERCENT MAN 1 % (0-2); EOSINOPHILS ABSOLUTE MAN 1.63 K/mm3 (0.00-0.68); EOSINOPHILS PERCENT MAN 8 % (0-6); LYMPHOCYTES ABSOLUTE MAN 1.43 K/mm3 (0.84-5.20); LYMPHOCYTES PERCENT MAN 7 % (21-46); METAMYELOCYTE PERCENT MAN 2 % (0-0); MONOCYTES ABSOLUTE MAN 1.84 K/mm3 (0.16-1.47); MONOCYTES PERCENT MAN 9 % (4-13); MYELOCYTE PERCENT MAN 2 % (0-0); NEUTROPHILS ABSOLUTE MAN 14.52 K/mm3 (1.96-9.15); SEG NEUTROPHILS PERCENT MAN 65 % (41-73); TOTAL CELLS COUNTED 100
--- NOTE | 2021-03-11 06:36 | NUR ---
Patient very restless during the shift. Repositioned several times within 30 mins for comfort but was not sucessfulin calming him. Medicated 2 times with Ativan 2mg iv and one time with Fentanyl 50mcgs iv but he remained restless. Suctioned for moderate amount of thick petty secretion from his trach. It was noted that his BP and HR went high when he was restless but came down after the fentanyl ivp was administered. He was diaphoretic and he stated that he was hot. The individual fans were turned on. Also his core temp was between 100 to 100.6. His tube feed which was restarted at 25ml/hr was put on hold to prevent aspiration. Hemoglobin this morning is 7.0 Also paitent requesting for food. Will continue to monitor 25ml/hr was put on held to prevent aspiration.
--- NOTE | 2021-03-11 10:10 | NUR ---
ASSUMED PT CARE AT 0700. PT ON TRACH TO GENARO, SPONTANEOUS MODE AND MINIMAL SETTINGS. PT TYESHA AND FRUSTRATED IN BED. ALL VSS. AZAR IN PLACE AND DRAINING.
--- NOTE | 2021-03-11 11:33 | NUR ---
GI DOCTOR JUST CALLED AND PLAN IS TO SCOPE AT 1400 DUE TO CONTINUED DROP IN HEMOGLOBIN. TF TURNED OFF.
[2021-03-11 11:57] LABS: Hemoglobin 6.8 g/dL (13.5-17.5)
--- NOTE | 2021-03-11 13:08 | NUR ---
03/11/[address] REVEIWED PT CHART AND HAS CLEARED PT FOR RN ADMINISTED PROPOFOL SEDATION FOR EGD. PER DR. WILLIS, RT IS BEING CONTACTED TO PLACE PT ON VENT DURING PROCEDURE.
--- NOTE | 2021-03-11 15:45 | NUR ---
Spiritual care visit conducted. Patient's spouse, tells me about an ulcer that is found and dealt with and that patient continues to improve. I provide prayer for patient and family.
--- NOTE | 2021-03-11 18:07 | NUR ---
PT HAD AN UPPER ENDOSCOPY TODAY AROUND 1400. WAS PLACED BACK ON TRACH VENT FOR THAT, ALONG WITH PROPOFOL FOR THE PROCEDURE. REMAINS ON THE VENT BUT PROPOFOL IS OFF. DURING PROCEDURE A LOWER DUODENUM ULCER WAS FOUND AND CAUTERIZED. PT'S NOON HBG WAS 6.8 SO 1 UNIT OF PRBC WAS GIVEN. AZAR REMAINS IN PLACE. DRAINING CONCENTRATED YELLOW URINE. RECTAL TEMP PROBE REMOVED MELENA GOT LODGED IN IT AND SKIN WAS BECOMING DIFFICULT TO ALBAN. ONLY ONE BM OF DARK TARRY STOOL. TO BEDSIDE AND UPDATED DURING VISITING HOURS. PT ALERT AND ORIENTED. ATTEMPTING TO SPEAK. SPEECH WILL COME SEE PT TOMORROW MORNING. PUTTING IN ORDERS FOR PT AND OT WELL.
[2021-03-11 19:09] LABS: Hematocrit 21.1 % (37.0-53.0); Hemoglobin 6.7 g/dL (13.5-17.5)
--- NOTE | 2021-03-11 20:00 | NUR ---
Assumed care for patient. Very restless. Repositioned. Fentanly 50mcg ivp administerd for discomfort. Will continue to monitor.
--- NOTE | 2021-03-12 01:15 | NUR ---
Transfusion of one unit PRBC started. No reaction as of now noted. Patient resting at this time because Ativan and Fentanyl were administered for agitation. Patient mouth/ cough his NGT out (the Kaofed was seen coiled in his mouth and he was using his tongue to remove it). Patient also was turning his head from side to side and his trach was disconnected. He was frequently been repositioned. As of now the tube feed is on hold and the NGT removed. Will continue to monitor.
[2021-03-12 05:50] LABS: BASOPHILS ABSOLUTE AUTO 0.12 K/mm3 (0.00-0.23); BASOPHILS PERCENT AUTO 1 % (0-2); EOSINOPHILS ABSOLUTE AUTO 0.97 K/mm3 (0.00-0.68); EOSINOPHILS PERCENT AUTO 5 % (0-6); Hematocrit 24.6 % (37.0-53.0); Hemoglobin 7.8 g/dL (13.5-17.5); IMMATURE GRAN ABSOLUTE AUTO 1.83 K/mm3 (0.00-0.10); IMMATURE GRAN PERCENT AUTO 10 % (0-1); LYMPHOCYTES ABSOLUTE AUTO 1.32 K/mm3 (0.84-5.20); LYMPHOCYTES PERCENT AUTO 7 % (21-46); MONOCYTES ABSOLUTE AUTO 1.38 K/mm3 (0.16-1.47); MONOCYTES PERCENT AUTO 7 % (4-13); Mean Corpuscular HGB 30.7 pg (26.0-34.0); Mean Corpuscular HGB Conc 31.7 g/dL (31.5-36.5); Mean Corpuscular Volume 97 fL (80-100); Mean Platelet Volume 10.1 fL (9.1-12.4); NEUTROPHILS ABSOLUTE AUTO 13.58 K/mm3 (1.96-9.15); NEUTROPHILS PERCENT AUTO 71 % (41-73); NRBC ABSOLUTE 1.46 K/mm3 (0.00-0.02); NRBC Auto 7.6 /100 WBC (0.0-0.2); Platelet Count 248 K/mm3 (150-400); RDW Coefficient Variation 18.3 % (11.7-14.2); RDW Standard Deviation 53.8 fL (35.1-46.3); Red Blood Cell Count 2.54 M/mm3 (4.30-5.90)
--- NOTE | 2021-03-12 06:11 | NUR ---
Transfusion of 1 unit PRBC completed with no adverse reaction. Patient remained restless and requesting for food. Repositioned. Result for post hemoglobin is 7.2. No distress noted.
[2021-03-12 06:15] LABS: Albumin, Blood 1.7 g/dL (3.4-5.0); Anion Gap 5 mmol/L (6-16); Blood Urea Nitrogen 20 mg/dL (8-24); Bun/Creatinine Ratio 35.5 (12.0-20.0); CO2, Blood 27 mmol/L (21-32); Chloride, Blood 115 mmol/L (98-108); Creatinine, Blood 0.56 mg/dL (0.60-1.20); Glomerular Filtration Rate >60 (60-); Glucose, Blood 124 mg/dL (70-99); Phosphorus, Blood 2.4 mg/dL (2.5-4.9); Potassium, Blood 3.5 mmol/L (3.5-5.5); Sodium, Blood 147 mmol/L (136-145)
[2021-03-12 06:27] LABS: BAND PERCENT MAN 2 % (0-8); BASOPHILS PERCENT MAN 0 % (0-2); EOSINOPHILS ABSOLUTE MAN 0.76 K/mm3 (0.00-0.68); EOSINOPHILS PERCENT MAN 4 % (0-6); LYMPHOCYTES ABSOLUTE MAN 1.34 K/mm3 (0.84-5.20); LYMPHOCYTES PERCENT MAN 7 % (21-46); METAMYELOCYTE ABSOLUTE MAN 0.38 K/mm3 (0.00-0.00); METAMYELOCYTE PERCENT MAN 2 % (0-0); MONOCYTES ABSOLUTE MAN 1.15 K/mm3 (0.16-1.47); MONOCYTES PERCENT MAN 6 % (4-13); MYELOCYTE ABSOLUTE MAN 1.92 K/mm3 (0.00-0.00); MYELOCYTE PERCENT MAN 10 % (0-0); NEUTROPHILS ABSOLUTE MAN 13.63 K/mm3 (1.96-9.15); SEG NEUTROPHILS PERCENT MAN 69 % (41-73); TOTAL CELLS COUNTED 100
--- NOTE | 2021-03-12 14:03 | NUR ---
ASSUMED CARE AT CHANGE OF SHIFT. PATIENT WAS AWAKE. ON VENTILATOR VIA TRACH; SPONT. MODE, PEEP 5, FIO2 30% WITH SATS >90%. LUNGS COARSE WET, SUCTION THICK WHITE SECRETIONS. TRACH CARE PERFORMED. DENIES NO PAIN. NOTED, HR TACHY AND BP ELEVATED. ABD LARGE/ROUND WITH BT'S. NPO. SPEECH THERAPY TO EVAL. AZAR PATIENT WITH YELLOW COLOR. PICC LINE AKASH WITH NS TKO AND PROTONIX GTT INFUSING. GOT PATIENT UP TO CHAIR WITH LIFT; TOLERATED WELL. CHANGE VENT MODE TO TRACH COLLAR WITH 50% FIO2; TOLERATING WELL. SPEECH EVAL COMPLETE; ICE CHIPS ONLY BY SPEECH AND RT ONLY. CONSULTED WITH DR BOBO TO REPLACE DOBHOFF FOR MEDS; DOBHOFF PLACED AT 65CM. PRE-MEDICATED WITH ZOFRAN FOR PLACEMENT; TOLERTED WELL. GAVE ALL 0900 MEDS. RESTARTED TUBE FEED AT GOAL RATE 25ML/HR. ONE TIME DOSE OF LABETOLOL 20MG IVP FOR HIGH BP/HR PER DR BOBO; GOOD RESULTS WITH MED. O.T. WORKED WITH PATIENT, TOLERATED THERAPY WELL. CONTINUE TO MONITOR AND TX PRN. 1315 HERE TO SEE PATIENT. PATIENT ABLE TO TALK WITH A PASSY REJI IN PLACE, TOLERATED WELL. FIO2 NOW 35%, WITH SATS >95%. 1400 C/O BACK PAIN. MEDICATED PER ORDERS. ASKED PHYSICAL THERAPY TO WORK WITH PATIENT AND WILL GET BACK TO AFTER THERAPY.
--- NOTE | 2021-03-12 14:51 | NUR ---
SLEEPY. BACK TO BED WITH LIFT; TOLERATED WELL. AT BEDSIDE VISITING. CONTINUE TO MONITOR AND TX PRN.
[2021-03-12 16:32] LABS: Hematocrit 25.2 % (37.0-53.0); Hemoglobin 7.8 g/dL (13.5-17.5)
--- NOTE | 2021-03-12 18:44 | NUR ---
SHIFT SUMMARY PATIENT UP TO CHAIR THIS AM FOR 6 HRS; TOLERATED WELL. WORKED WITH OT/PT AND SPEECH EVAL; ICE CHIPS ONLY BY SPEECH OR RESP. THERAPY. PASSY REJI OVER TRACH AND ABLE TO COMMUNICATE WITH STAFF. MEDICATED FOR CHRONIC BACK PAIN SCHEDULED WITH GOOD RESULTS. LUNGS CLEAR T/O, DECREASE BASES. TRACH COLLOR WITH FIO2 35% WITH SATS >90%. AFEBRILE. HR/BP STABLE. ABD ROUND/SOFT. X2 BOWEL MOVEMENTS; DARK BLACK LIQUID. DOBHOFF REPLACED WITH TUBE FEEDS RESTARTED. INCREASED TUBE FEED AT 40ML/HR; GOAL RATE 50ML/HR. AZAR PATENT WILL LOW OUTPUT NOTED; NOTIFIED DR NGUYEN. ORDERS TO MONITOR, AND CHECK BLADDER SCAN OR IRRIGATE NEEDED. NO OTHER CHANGES, WILL REPORT OFF TO NOC SHIFT.
--- NOTE | 2021-03-12 21:11 | NUR ---
SHIFT ASSESSMENT ASSUMED CARE OF PT @ 1900. PT ALERT, FOLLOWING SIMPLE COMMANDS. PROTONIX GTT INFUSING. TRACH COLLAR @ 10L/ 35% c O2 SATS >95%. LS COARSE ON THE RIGHT, CLEAR/ DIMINISHED LEFT. DOBHOFF IN PLACE, TF INFUSING. AZAR CATH PATENT, DRAINING TO GRAVITY. PT WITH LARGE, LOOSE BM DURING ASSESSMENT. RECTAL TUBE INSERTED, DRAINING TO GRAVITY.
[2021-03-13 03:30] LABS: BASOPHILS ABSOLUTE AUTO 0.06 K/mm3 (0.00-0.23); BASOPHILS PERCENT AUTO 0 % (0-2); EOSINOPHILS ABSOLUTE AUTO 1.83 K/mm3 (0.00-0.68); EOSINOPHILS PERCENT AUTO 12 % (0-6); Hematocrit 23.2 % (37.0-53.0); Hemoglobin 7.2 g/dL (13.5-17.5); IMMATURE GRAN ABSOLUTE AUTO 0.91 K/mm3 (0.00-0.10); IMMATURE GRAN PERCENT AUTO 6 % (0-1); LYMPHOCYTES ABSOLUTE AUTO 1.55 K/mm3 (0.84-5.20); LYMPHOCYTES PERCENT AUTO 10 % (21-46); MONOCYTES ABSOLUTE AUTO 1.12 K/mm3 (0.16-1.47); MONOCYTES PERCENT AUTO 7 % (4-13); Mean Corpuscular Volume 100 fL (80-100); Mean Platelet Volume 9.9 fL (9.1-12.4); NEUTROPHILS ABSOLUTE AUTO 10.12 K/mm3 (1.96-9.15); NEUTROPHILS PERCENT AUTO 65 % (41-73); NRBC ABSOLUTE 0.74 K/mm3 (0.00-0.02); NRBC Auto 4.7 /100 WBC (0.0-0.2); Platelet Count 213 K/mm3 (150-400); RDW Coefficient Variation 19.3 % (11.7-14.2); RDW Standard Deviation 59.1 fL (35.1-46.3); Red Blood Cell Count 2.32 M/mm3 (4.30-5.90); White Blood Cell Count 15.59 K/mm3 (4.00-11.30)
[2021-03-13 03:44] LABS: Albumin, Blood 1.7 g/dL (3.4-5.0); Anion Gap 4 mmol/L (6-16); Blood Urea Nitrogen 18 mg/dL (8-24); Bun/Creatinine Ratio 32.1 (12.0-20.0); CO2, Blood 28 mmol/L (21-32); Calcium, Blood 7.7 mg/dL (8.5-10.1); Chloride, Blood 114 mmol/L (98-108); Creatinine, Blood 0.56 mg/dL (0.60-1.20); Glomerular Filtration Rate >60 (60-); Glucose, Blood 130 mg/dL (70-99); Magnesium, Blood 2.3 mg/dL (1.6-2.4); Potassium, Blood 3.8 mmol/L (3.5-5.5); Sodium, Blood 146 mmol/L (136-145)
[2021-03-13 03:47] LABS: BAND PERCENT MAN 1 % (0-8); BASOPHILS PERCENT MAN 0 % (0-2); EOSINOPHILS ABSOLUTE MAN 2.18 K/mm3 (0.00-0.68); EOSINOPHILS PERCENT MAN 14 % (0-6); LYMPHOCYTES ABSOLUTE MAN 0.93 K/mm3 (0.84-5.20); LYMPHOCYTES PERCENT MAN 6 % (21-46); METAMYELOCYTE ABSOLUTE MAN 0.31 K/mm3 (0.00-0.00); METAMYELOCYTE PERCENT MAN 2 % (0-0); MONOCYTES ABSOLUTE MAN 0.46 K/mm3 (0.16-1.47); MONOCYTES PERCENT MAN 3 % (4-13); NEUTROPHILS ABSOLUTE MAN 11.69 K/mm3 (1.96-9.15); SEG NEUTROPHILS PERCENT MAN 74 % (41-73); TOTAL CELLS COUNTED 100
--- NOTE | 2021-03-13 06:13 | NUR ---
SHIFT SUMMARY PT ABLE TO SLEEP FOR MOST OF THE NIGHT. FOLLOWING SIMPLE COMMANDS WHEN AWAKE. DIFFICULT TO UNDERSTAND VERBAL RESPONSE. TRACH COLLAR c 35% O2, SATS >90%. ATTEMPTED TO TRANSITION TO ROOM AIR, SATS DECREASED TO THE MID 80'S. TF @ GOAL c 150CC FLUSHES Q4H. 10MMOL OF KPHOS INFUSING SECONDARY TO LOW P THIS AM. AZAR CATH PATENT, <30CC URINE OUT. RECTAL TUBE DRAINING DARK LOOSE STOOL. NO OTHER ACUTE CHANGES DURING THE NIGHT. REPORT TO ONCOMING NURSE.
--- NOTE | 2021-03-13 14:39 | NUR ---
SINCE THE CHANGE OF SHIFT PATIENT REMAINS ON TRACH COLLAR AT 35%, WITH SATS >90%. RESPIRATORY/DR NGUYEN CHANGE TRACH TO SMALLER SIZE #6 FENESTRATED CUFFLESS. PATIENT WAS PLUGGED AT TRACH AND WAS ON 3L/NC FOR [id number], TOLERATED WELL. ABLE TO SPEAK CLEARER, THEN BACK TO TRACH COLLAR WITH SAME FIO2. LUNGS COARSE ON RIGHT SIDE, DECREASE BASES, SUCTION VIA TRACH WITH THICK WHITEISH/MILIAN SECRETIONS WITH OCCASIONAL MUCOUS PLUGS. HUMIDIFICATION APPLIED TO OXYGEN. RECTAL TUBE PATENT WITH THICK BLACK STOOL, SLIGHT LEAKAGE AROUND RECTUM NOTED. AZAR WITH DECREASE URINE OUTPUT NOTED. BLADDER SCANNED, >200CC. ATTEMPTED TO IRRIGATE WITH STERILE WATER, BACK PRESSURE NOTED. DC'D AZAR CATH AND REPLACED WITH NEW 16FR. INCREASE OUTPUT NOTED. UPDATED DR NGUYEN WITH RESULTS. PATIENT WAS C/O OF PRESSURE, BUT NO DISCOMFORT AFTER NEW AZAR PLACED. GENERALIZED WEAKNESS REMAINS BUT ABLE TO HELP A LITTLE WITH ROM AND TURNS. CONTINUE WITH PT AND OT. PER SPEECH THERAPY TODAY, CONTINUE WITH ICE CHIPS, ONLY GIVEN BY ST/RT/NURSING. NEW ORDERS TO CHANGE TUBE FEEDING FORMULA TO JEVITY 1.5 WITH GOAL RATE 50ML/HR, FLUSHES WITH 30ML/Q4HRS. CONTINUE TO MONITOR AND TX FOR ANY CHANGES.
--- NOTE | 2021-03-13 15:00 | NUR ---
REQUESTING TO GO BACK TO BED DUE TO BEING UNCONFORTABLE IN CHAIR. PATIENT SAT UP IN CHAIR FOR 3 HRS. CAME BY TO VISIT AND BROUGHT PATIENT'S GLASSES. ENCOURAGE PATIENT TO INCREASE ACTIVITY TO CHAIR OVER WEEKEND. CONTINUE TO MONITOR.
--- NOTE | 2021-03-13 17:10 | NUR ---
RESPIRATORY THERAPY PLUGGED TRACH AND PLACED ON 02 3L/NC. SATS 100%, DECREASE 02 2L/NC. RESTING COMFORTABLE IN BED.
--- NOTE | 2021-03-13 18:30 | NUR ---
SHIFT SUMMARY PATIENT SLEEPIER MORE TODAY. SEROQUEL DOSE CHANGED. ALERT AND COOPERATIVE WITH STAFF. REORIENTS/REDIRECTS WELL TO PLACE/TIME/DATE. PATIENT UP TO CHAIR TODAY FOR ONLY 3 HRS; WORKED WITH PT/OT. SPEECH RE-EVALUATED, CONTINUE WITH ICE CHIPS ONLY BY ST/RT/NURSING; TOLERATING WELL. TRACH CHANGED OUT TO #6 FENESTRATED CUFFLESS AND PLUGGED TO COMMUNICATE WITH STAFF. 02 2L/NC WITH SATS >90%. LUNGS REMAIN COARSE ANTERIORLY DECREASE BASES. TUBE FEEDING CHANGED FORMULA JEVITY 1.5 WITH GOAL RATE 50ML/HR WITH 30ML FLUSHES Q4 HRS; TOLERATING WELL. RECTAL TUBE PATENT WITH MINIMAL DARK BLACK COLOR. NEW AZAR CATH PLACED, 16FR WITH GOOD OUT; LASIX STARTED. WAS HERE TODAY TO VISIT. NO OTHER CHANGES NOTED. WILL REPORT OFF TO NOC SHIFT.
--- NOTE | 2021-03-13 20:00 | NUR ---
Assumed care for patient at 1900. Awake and aler. Able to make needs known. Trach capped and his saturation is 90% to 94%. No distress noted. Ice chips offered.
[2021-03-14 04:29] LABS: BASOPHILS ABSOLUTE AUTO 0.05 K/mm3 (0.00-0.23); BASOPHILS PERCENT AUTO 0 % (0-2); EOSINOPHILS ABSOLUTE AUTO 2.11 K/mm3 (0.00-0.68); EOSINOPHILS PERCENT AUTO 15 % (0-6); Hematocrit 22.2 % (37.0-53.0); Hemoglobin 6.8 g/dL (13.5-17.5); IMMATURE GRAN ABSOLUTE AUTO 0.67 K/mm3 (0.00-0.10); IMMATURE GRAN PERCENT AUTO 5 % (0-1); LYMPHOCYTES ABSOLUTE AUTO 1.41 K/mm3 (0.84-5.20); LYMPHOCYTES PERCENT AUTO 10 % (21-46); MONOCYTES ABSOLUTE AUTO 0.96 K/mm3 (0.16-1.47); MONOCYTES PERCENT AUTO 7 % (4-13); Mean Corpuscular HGB 30.6 pg (26.0-34.0); Mean Corpuscular HGB Conc 30.6 g/dL (31.5-36.5); Mean Corpuscular Volume 100 fL (80-100); Mean Platelet Volume 10.1 fL (9.1-12.4); NEUTROPHILS ABSOLUTE AUTO 8.52 K/mm3 (1.96-9.15); NEUTROPHILS PERCENT AUTO 62 % (41-73); NRBC ABSOLUTE 0.46 K/mm3 (0.00-0.02); NRBC Auto 3.4 /100 WBC (0.0-0.2); Platelet Count 211 K/mm3 (150-400); RDW Standard Deviation 61.9 fL (35.1-46.3); Red Blood Cell Count 2.22 M/mm3 (4.30-5.90); White Blood Cell Count 13.72 K/mm3 (4.00-11.30)
[2021-03-14 04:46] LABS: Albumin, Blood 1.8 g/dL (3.4-5.0); Anion Gap 4 mmol/L (6-16); Blood Urea Nitrogen 15 mg/dL (8-24); Bun/Creatinine Ratio 27.7 (12.0-20.0); CO2, Blood 30 mmol/L (21-32); Calcium, Blood 7.8 mg/dL (8.5-10.1); Chloride, Blood 110 mmol/L (98-108); Creatinine, Blood 0.54 mg/dL (0.60-1.20); Glomerular Filtration Rate >60 (60-); Glucose, Blood 114 mg/dL (70-99); Phosphorus, Blood 2.4 mg/dL (2.5-4.9); Potassium, Blood 3.5 mmol/L (3.5-5.5); Sodium, Blood 144 mmol/L (136-145)
[2021-03-14 04:48] LABS: BAND PERCENT MAN 5 % (0-8); BASOPHILS ABSOLUTE MAN 0.13 K/mm3 (0.00-0.23); BASOPHILS PERCENT MAN 1 % (0-2); EOSINOPHILS ABSOLUTE MAN 2.19 K/mm3 (0.00-0.68); EOSINOPHILS PERCENT MAN 16 % (0-6); LYMPHOCYTES ABSOLUTE MAN 1.37 K/mm3 (0.84-5.20); LYMPHOCYTES PERCENT MAN 10 % (21-46); METAMYELOCYTE ABSOLUTE MAN 0.27 K/mm3 (0.00-0.00); METAMYELOCYTE PERCENT MAN 2 % (0-0); MONOCYTES ABSOLUTE MAN 0.68 K/mm3 (0.16-1.47); MONOCYTES PERCENT MAN 5 % (4-13); MYELOCYTE ABSOLUTE MAN 0.13 K/mm3 (0.00-0.00); MYELOCYTE PERCENT MAN 1 % (0-0); NEUTROPHILS ABSOLUTE MAN 8.91 K/mm3 (1.96-9.15); SEG NEUTROPHILS PERCENT MAN 60 % (41-73); TOTAL CELLS COUNTED 100
--- NOTE | 2021-03-14 06:32 | NUR ---
Patient remained stable during the shift on 2L NC. AT about 0400 he became restless and his saturation decreased to 84%. O2 via NC increased to 4L. Suctioned him for scant thin clear secretion after which his saturation increased to 93%. Patient tolerated ice chips without any difficulty. Repositioned for comfort. notified of patient's hemoglobin been 6.8 this morning.
--- NOTE | 2021-03-14 09:45 | NUR ---
AM NOTE... ASSUMED CARE OF PT AT 0700, PT IS A&Ox4 PT IS SLOW TO RESPOND BUT RESPONDS APPROPRIATELY. PT'S TRACH IS SECURE WITH CAP IN PLACE, PT IS ON 2L NC WITH O2 SATS >94%. L/S CLEAR IN THE UPPER LOBES COARSE IN THE LOWER LOBES. PT IS IN ST IN THE LOW 100'S. BP IS STABLE. PT DENIES CHEST PAIN/PRESSURE. PT HAS 2+ PITTING EDEMA NOTED TO HIS BLE. BILAT HANDS ARE PUFFY WELL. BT PRESENT AND HYPOACTIVE, DOBHOFF IN PLACE AND INFUSING TF PER ORDERS AT 50MLS/HR. AZAR IS PATENT AND DRAINING XU URINE TO GRAVITY. RECTAL TUBE IS IN PLACE DRAINING LIQUID DARK BROWN/BLACK STOOLS. THE PT'S SUB Q HEPARIN WAS STOPPED PER DR. ALFRED D/T LOW H&H NEEDING 1 UNIT OF PRBCs, BILAT SCDs WERE PLACED ON THE PT. DR. DONIS AT THE BEDSIDE PT WAS CHANGED TO PCU STATUS. WILL CONTINUE TO MONITOR.
--- NOTE | 2021-03-14 11:17 | NUR ---
PT UPDATE... AT APROX 1030 THIS RN AND THE PALLIATIVE CARE NURSE WERE GIVING THIS PT A BEDBATH WITH LINEN CHANGE WITH THE IDEA TO GET HIM UP IN THE RECLINER CHAIR, THE PT'S HEAD WAS LOWERED TO ROLL HIM AND CHANGE THE LINEN UNDER HIM AND ASSESS THE SKIN ON HIS BACKSIDE. THIS RN WAS ROLLING THE PT TO GET THE LINEN OUT FROM UNDER HIM HIS WORK OF BREATHING STARTED TO INCREASE, HIS RR INCREASED TO THE 40'S, THE HEAD OF HIS BED WAS BROUGHT BACK UP TO HIGH FOWLERS, THE PT'S FACE WAS RED AND HE WAS COVERED IN SWEAT, THE PT'S O2 WAS INCREASED FROM 2L TO 6L NC. THIS RN NOTED AN INCREASE IN RHONCHI AND COARSENESS FROM THE PRIOR ASSESSMENT APROX 2 HRS EARLIER. RT HUNTER WAS CALLED INTO THE ROOM WELL DR. DONIS. DR. DONIS UPDATED. THE PT WAS GIVEN 2MG IV ATIVAN TO HELP REDUCE THE ANXIETY. THE PT'S BP WAS HYPERTENSIVE WITH SBPs IN THE 170'S-190'S, HIS HR WAS SINUS TACH UP TO 125. AN EKG WAS OBTAINED AND THE PT WAS GIVEN A 1 TIME DOSE OF 40MG IV LASIX. THE PT'S AZAR WAS EMPTIED BY THIS RN RIGHT BEFORE GIVING THE LASIX THERE WAS 1675MLS OF CLEAR YELLOW URINE. WILL CONTINUE TO MONITOR.
[2021-03-14 14:10] LABS: Hematocrit 27.8 % (37.0-53.0); Hemoglobin 8.7 g/dL (13.5-17.5)
--- NOTE | 2021-03-14 15:15 | NUR ---
PT UPDATE.... PT WORKED WITH PT/OT THIS AFTERNOON, THE PT'S O2 SATS DROPPED A LITTLE WITH THE ACTIVITY AND ANXIETY THE PT WAS ON 2L THIS WAS INCREASED TO 6L NC WITH GOOD RESULTS OF O2 SATS >95%. A CONSULT WAS CALLED TO DR. POPE FOR AN IVC FILTER PLACEMENT. THIS RN SPOKE WITH DR. POPE AND FAXED THE PT INFO TO DR. POPE'S OFFICE. THE PT'S IS AT THE BEDSIDE, SHE WAS UPDATED BY THIS RN ON THE PT'S CONDITION AND PLAN TO TRANSFER OUT TO PCU. BOTH THE PT AND HIS ARE HAPPY WITH THE PLAN OF CARE. REPORT WAS CALLED TO OFFICE CHAIR ASSEMBLER. ALL OF PT'S BELONGINGS PACKED AND SENT WITH THE PT.
--- NOTE | 2021-03-14 16:34 | NUR ---
Echocardiogram completed.
--- NOTE | 2021-03-14 16:41 | NUR ---
ARRIVAL TO PCU PATIENT ARRIVED TO PCU BY ICU BED. PATIENT TRANSFERD TO PCU BED WITH THE LIFT. PATIENT A/OX4. PATIENT VSS, BUT HIGH BP. PATIENT AT BEDSIDE. PATIENT ORIENTATED TO ROOM. CALL LIGHT WITHIN REACH. WILL CONTINUE TO MONITOR AND PROVIDE CARE.
--- NOTE | 2021-03-14 17:31 | NUR ---
SHIFT SUMMARY PATIENT IS AGITATED AND CONFUSED. PATIENT IS HALLUCINATING, TALKING TO SOMEONE WHO ISN'T IN THE ROOM. PATIENT STATES HE IS LEAVING AND TRYS TO SIT UP. PATIENT IS REDIRECTED AND ORIENTATED TO HIS LOCATION AND STATUS OF HEALTH. PATIENT IS DESATTING, PATIENT SWITCHED TO HI FLOW NC AT 10L. PATIENT IS SINUS TACH 110S, MAX 120. CALL LIGHT WITHIN REACH. WILL CONTINUE TO MONITOR AND PROVIDE CARE UNTIL HAND OFF WITH NEXT SHIFT.
[2021-03-14 20:12] LABS: Hematocrit 26.8 % (37.0-53.0); Hemoglobin 8.3 g/dL (13.5-17.5)
[2021-03-15 04:19] LABS: BASOPHILS ABSOLUTE AUTO 0.05 K/mm3 (0.00-0.23); BASOPHILS PERCENT AUTO 0 % (0-2); EOSINOPHILS ABSOLUTE AUTO 1.97 K/mm3 (0.00-0.68); EOSINOPHILS PERCENT AUTO 14 % (0-6); Hematocrit 26.7 % (37.0-53.0); Hemoglobin 8.2 g/dL (13.5-17.5); IMMATURE GRAN ABSOLUTE AUTO 0.51 K/mm3 (0.00-0.10); IMMATURE GRAN PERCENT AUTO 4 % (0-1); LYMPHOCYTES ABSOLUTE AUTO 1.17 K/mm3 (0.84-5.20); LYMPHOCYTES PERCENT AUTO 8 % (21-46); MONOCYTES ABSOLUTE AUTO 1.02 K/mm3 (0.16-1.47); MONOCYTES PERCENT AUTO 7 % (4-13); Mean Corpuscular HGB 30.7 pg (26.0-34.0); Mean Corpuscular HGB Conc 30.7 g/dL (31.5-36.5); Mean Corpuscular Volume 100 fL (80-100); Mean Platelet Volume 10.3 fL (9.1-12.4); NEUTROPHILS ABSOLUTE AUTO 9.61 K/mm3 (1.96-9.15); NEUTROPHILS PERCENT AUTO 67 % (41-73); NRBC ABSOLUTE 0.23 K/mm3 (0.00-0.02); NRBC Auto 1.6 /100 WBC (0.0-0.2); Platelet Count 234 K/mm3 (150-400); RDW Coefficient Variation 19.9 % (11.7-14.2); RDW Standard Deviation 65.3 fL (35.1-46.3); Red Blood Cell Count 2.67 M/mm3 (4.30-5.90); White Blood Cell Count 14.33 K/mm3 (4.00-11.30)
--- NOTE | 2021-03-15 04:19 | NUR ---
CALLED DR LUKE REGARDING HIGH BP. ORDER OF HYDRALAZINE 10MG PRN Q6 PER SYSTOLIC OF >160.
[2021-03-15 04:40] LABS: Alanine Aminotransfer (ALT/SGP 64 U/L (12-78); Albumin, Blood 1.9 g/dL (3.4-5.0); Albumin/Globulin Ratio 0.5 (0.8-1.8); Alk Phos 78 U/L (50-136); Anion Gap 1 mmol/L (6-16); Aspartate Aminotrans (AST/SGOT 40 U/L (12-37); Bilirubin, Total 0.4 mg/dL (0.1-1.0); Blood Urea Nitrogen 15 mg/dL (8-24); Bun/Creatinine Ratio 28.1 (12.0-20.0); CO2, Blood 34 mmol/L (21-32); Calcium, Blood 8.1 mg/dL (8.5-10.1); Chloride, Blood 107 mmol/L (98-108); Creatinine, Blood 0.53 mg/dL (0.60-1.20); Ferritin, Serum 188 ng/mL (26-388); Globulin, Blood 3.5 g/dL (2.2-4.0); Glomerular Filtration Rate >60 (60-); Glucose, Blood 114 mg/dL (70-99); Iron Serum 34 ug/dL (65-175); Magnesium, Blood 2.1 mg/dL (1.6-2.4); Percent Saturation 13.5 % (20.0-50.0); Phosphorus, Blood 3.3 mg/dL (2.5-4.9); Potassium, Blood 3.8 mmol/L (3.5-5.5); Sodium, Blood 142 mmol/L (136-145); Total Iron Binding Capacity 251 ug/dL (250-450); Total Protein, Blood 5.4 g/dL (6.4-8.2)
--- NOTE | 2021-03-15 06:03 | NUR ---
SHIFT SUMMARY PT HAS BEEN ANXIOUS T/O THE NIGHT HAS BEEN SLEEPING FOR LARGE PART OF THE NIGHT BUT WHEN HE AWAKES HE WILL GET VERY ANXIOUS WITH HIGH RESPIRATIONS, AND DESATS. PT WAS PUT BACK ON TRACH COLLAR WITH 90% O2 WILL DESAT INTO THE LOW 70'S WHEN ANXIOUS AND BECOMES DIAPHORETIC. PT HAS SKIN BREAKDOWN UNDER DRACH PIECE. BP HAS BEEN HTN AND WAS MEDICATED PER ORDER. PT DENIES PAIN OR DISCOMFORT. PT ONCE AGITATED WILL WANT TO SIT UP AND GET OUT OF BED. BED ALARM IS ACTIVATED. AZAR IN PLACE AND DRAINING TO GRAVITY. CALL LIGHT IS WITHIN REACH. WILL CONTINUE TO MONITOR.
--- NOTE | 2021-03-15 07:30 | NUR ---
CARE ASSUMPTION PATIENT OPENS EYES WITH GENTLE TOUCH, BUT QUICKLY CLOSES THEM AGAIN. PATIENT HAS HIGH BP, SINUS TACH 110-120, AND TACHYPNEIC-RESPIRATIONS 30-40S. SPO2 >90% ON TRACH COLLAR 90%. PATIENT WILL RECEIVE MORNING BLOOD PRESSURE MEDICATION WITH AM MEDS. AZAR IN PLACE AND DRAINING WITH GRAVITY. BED IN LOWEST POSITION AND CALL LIGHT WITHIN REACH. WILL CONTINUE TO MONITOR AND PROVIDE CARE.
[2021-03-15 08:10] LABS: Hematocrit 27.5 % (37.0-53.0); Hemoglobin 8.4 g/dL (13.5-17.5)
--- NOTE | 2021-03-15 17:19 | NUR ---
SHIFT SUMMARY PATIENT AWAKES UPON VERBAL STIMULUS AND IS A/OX4 WHEN WAKING UP. PATIENT RESPIRATIONS BEEN 30-40 THROUGHOUT THE DAY. SPO2 >90% ON CPAP 10 50%. SINUS TACH 110-115. PATIENT RESPIRATIONS INCREASE WITH REPOSITIONING AND WHEN PATIENT AWAKENS OR BECOMES ANXIOUS. PATIENT HAS SLPET OFF AND ON MOST OF THE DAY. PATIENT HAS SKIN BREAKDOWN UNDERNEATH THE TRACH, PHOTO IN CHART, AND FOAM PAD IN PLACE. PATIENT REPORTS NO CHEST PAIN OR PAIN. CALL LIGHT WITHIN REACH. WILL CONTINUE TO MONITOR AND PROVIDE CARE UNTIL HAND OFF WITH NEXT SHIFT.
[2021-03-16 04:31] LABS: BASOPHILS ABSOLUTE AUTO 0.03 K/mm3 (0.00-0.23); BASOPHILS PERCENT AUTO 0 % (0-2); EOSINOPHILS ABSOLUTE AUTO 0.74 K/mm3 (0.00-0.68); EOSINOPHILS PERCENT AUTO 6 % (0-6); Hematocrit 25.2 % (37.0-53.0); Hemoglobin 7.9 g/dL (13.5-17.5); IMMATURE GRAN ABSOLUTE AUTO 0.21 K/mm3 (0.00-0.10); IMMATURE GRAN PERCENT AUTO 2 % (0-1); LYMPHOCYTES ABSOLUTE AUTO 1.06 K/mm3 (0.84-5.20); LYMPHOCYTES PERCENT AUTO 9 % (21-46); MONOCYTES ABSOLUTE AUTO 0.82 K/mm3 (0.16-1.47); MONOCYTES PERCENT AUTO 7 % (4-13); Mean Corpuscular HGB 31.1 pg (26.0-34.0); Mean Corpuscular HGB Conc 31.3 g/dL (31.5-36.5); Mean Corpuscular Volume 99 fL (80-100); Mean Platelet Volume 10.4 fL (9.1-12.4); NEUTROPHILS ABSOLUTE AUTO 9.55 K/mm3 (1.96-9.15); NEUTROPHILS PERCENT AUTO 77 % (41-73); NRBC ABSOLUTE 0.05 K/mm3 (0.00-0.02); NRBC Auto 0.4 /100 WBC (0.0-0.2); Platelet Count 241 K/mm3 (150-400); RDW Coefficient Variation 18.9 % (11.7-14.2); RDW Standard Deviation 66.7 fL (35.1-46.3); Red Blood Cell Count 2.54 M/mm3 (4.30-5.90); White Blood Cell Count 12.41 K/mm3 (4.00-11.30)
[2021-03-16 04:46] LABS: Anion Gap 1 mmol/L (6-16); Blood Urea Nitrogen 17 mg/dL (8-24); Bun/Creatinine Ratio 36.5 (12.0-20.0); CO2, Blood 33 mmol/L (21-32); Calcium, Blood 8.1 mg/dL (8.5-10.1); Chloride, Blood 108 mmol/L (98-108); Creatinine, Blood 0.47 mg/dL (0.60-1.20); Glomerular Filtration Rate >60 (60-); Glucose, Blood 120 mg/dL (70-99); Potassium, Blood 3.6 mmol/L (3.5-5.5); Sodium, Blood 142 mmol/L (136-145)
--- NOTE | 2021-03-16 06:10 | NUR ---
SHIFT SUMMARY PT IS ALERT. PT WILL ANSWER QUESTIONS ASKED BUT DOES NOT TALK ONLY FOR A FEW WORDS. THERE HAVE BEEN NO ACUTE CHANGES T/O THE NIGHT. VITALS HAVE BEEN STABLE AND PT HAS BEEN ON CPAP 10 WITH 40% FIO2 WITH SATS ABOVE 92%. PT DENIES PAIN OR BEING UNCOMFORTABLE. PT ALSO DENIES ANXIETY. THERE ARE TIMES THAT HIS RESP INCREASED INTO THE 30'S 40'S WITH SOME ANXIETY LIKE SIGNS BUT DEESCALATED QUICKLY AND HAS NOT HAD TO BE MEDICATED FOR ANXIETY. AZAR IN PLACE AND DRAINING TO GRAVIY WITH DARK YELLOW URINE. PT HAS BEEN ABLE TO COUGH AND PRODUCE SOME SECRETIONS. CALL LIGHT IS WITHIN REACH. WILL CONTINUE TO MONITOR.
--- NOTE | 2021-03-16 09:58 | NUR ---
AM NOTES: PATIENT ON CPAP UPON RECEIVING REPORT SETTINGS 10/40%FIO2 SATS ABOVE 95%. PT WAS ALERT AWAKE AND ABLE TO CONVERSE, LOOKING MUCH BETTER TODAY THAN YESTERDAY. VITALS BP SYSTOLIC 150'S, HRR ST 100'S, RR 20-30'S. PT ABLE TO MAKE NEEDS KNOWN, TUBE FEEDING THRU DOBHOFF AT 50MLS/HR JEVITY 1.5 WITH 30MLS FLUSHES Q4 HRS. PT WAS SWITCHED TO NASAL CANNULA HI LELO 10L, PT TOLERATING AT THIS TIME SATS ABOVE 95%, PT WAS ABLE TO WORK WITH OCCUPATIONAL THERAPIST WITHOUT DESATTING. PT IN BED WATCHING TV AT THIS TIME, ABLE TO COMMUNICATE NEEDS, ORAL CARE PROVIDED REPOSITIONED IN BED, DENIES ANY PAIN AT THIS TIME. WILL MONITOR
--- NOTE | 2021-03-16 11:49 | NUR ---
PT OFF TO FACILITIES MAINTENANCE ASSISTANT AT THIS TIME FOR IVC FILTER PLACEMENT.
--- NOTE | 2021-03-16 16:12 | NUR ---
Spiritual care visit conducted. Patient is sitting up in bed, alert and talking which is a miraculous site to see given his previous condition. Patient's spouse is bedside. We talk about his journey and what he remembers and the possible hallucinations he has had (it continues to be alittle foggy between what is real and what was in his mind only). Patient overall is incredibly grateful and is very hopeful. We discuss the long road to recovery and patient's admission that he is not typically extremely patient. I normalize patient's experience, encourage self-care and provide pastoral certified genetic counselor and prayer. Patient responds well and shows signs of celebration and juan r. I will continue to remain available to patient and family.
--- NOTE | 2021-03-16 18:28 | NUR ---
PT SUMMARY: PT WAS DOWN TO 5L OF O2 VIA HIFLO NASAL CANNULA TOLERATING WELL SATS ABOVE 95%. BP SYSTOLIC 150'S, AFEBRILE. RR 20'S, HRR ST 100'S. PT HAD IVC FILTER PLACED TODAY HAD RIGHT GROIN SITE WITH ОЛЕГ DRESSING INTACT NO HEMATOMA NOTED AROUND THE SITE. PT IS MORE CONVERSIVE TODAY WAS ABLE TO PARTICIPATE WITH SPEECH THERAPIST PT TOLERATING PO INTAKE, PT OKAY TO START WITH THIN WATER WITH SMALL SIPS. TF STILL RUNNING AT 50MLS/HR. BED BAHT COMPLETED TODAY. NO OTHER ISSUES REPORTED. PT ABLE TO MAKE NEEDS KNOWN. WILL REPORT TO ONCOMING SHIFT
--- NOTE | 2021-03-16 21:10 | NUR ---
ASSUMED CARE PT IS ALERT AND ORIENTED HAS BEEN ABLE TO CONVERSE WITH THIS NURSE. VERBALIZED MONTH/YEAR, PRESIDENT, NAME, PLACE/CITY. PT DENIES PAIN OR BEING UNCOMFORTABLE. PT WANTED BLINDS OPEN AND LIGHTS OFF SO THAT HE CAN SEE OUTSIDE. ORAL CARE WAS DONE BY PATIENT WITH ASSISTANCE. REFUSED REPOSITIONING. CALL LIGHT IS WITHIN REACH. WILL CONTINUE TO MONITOR.
[2021-03-17 05:11] LABS: Albumin, Blood 1.8 g/dL (3.4-5.0); Anion Gap 5 mmol/L (6-16); Blood Urea Nitrogen 15 mg/dL (8-24); Bun/Creatinine Ratio 31.6 (12.0-20.0); CO2, Blood 30 mmol/L (21-32); Calcium, Blood 8.2 mg/dL (8.5-10.1); Chloride, Blood 106 mmol/L (98-108); Creatinine, Blood 0.47 mg/dL (0.60-1.20); Glomerular Filtration Rate >60 (60-); Glucose, Blood 110 mg/dL (70-99); Phosphorus, Blood 2.8 mg/dL (2.5-4.9); Potassium, Blood 3.5 mmol/L (3.5-5.5); Sodium, Blood 141 mmol/L (136-145)
--- NOTE | 2021-03-17 05:47 | NUR ---
SHIFT SUMMARY PT IS ALERT AND ORIENTED. VITALS ARE STABLE AND IS ON 5L NC WITH SATS >92%. THERE HAVE BEEN NO ACUTE CHANGES. PT DENIES CHEST PAIN OR BEING UNCOMFORTABLE. HE DID REPORT ABDOMINAL PAIN AND WAS TREATED PER EMAR. PT REFUSED REPOSITIONING T/O THE NIGHT. PT DID NOT HAVE ANY ANXIOUS EPISODES T/O THE NIGHT. PT HAS BEEN ABLE TO TAKE PO MEDS WITH SIPS WITH NO FURTHER ISSUES. TF IS CONTINUOUS. AZAR IN PLACE. CALL LIGHT IS WITHIN REACH. IS ABLE TO COMMUNICATE NEEDS AND HAS BEEN CONVERSING WITH STAFF T/O THE NIGHT. STS THAT HE WANTS TO GO HOME. CALL LIGHT IS WITHIN REACH.
--- NOTE | 2021-03-17 18:30 | NUR ---
0710-Rec'd pt this morning, aox4, denied pain at the beginning of this shift but later c/o of mild lowe abdominal pain that was medicated with scheduled liqui [place]. VSS, afebrile, BP stable. Pt had one episode of tachycardia earlier during this shift that improved with scheduled metoprolol. Tube feeds ongoing as ordered. Pt became anxious and was experiencing tremors, ativan prn given with relief. Pt was placed on CPAP at the time of anxiety episode and later put back on 5LNC and he is resting comfortably now. Pt's /spouse was at bedside during visiting hours. No other event this shift, will endorse pt care to night warehouse manager RN.
--- NOTE | 2021-03-17 21:40 | NUR ---
DR BASILIO WAS CALLED TO SEE IF THE PATIENT CAN GET SOMETHING TO HELP HIM SLEEP. HE WANTED THE PATIENT TO GET ATIVAN HE WAS NOTIFED HE DOES HAVE ATIVAN ORDERED BUT IT WAS FOR ANXIETY. SO DR BASILIO ORDERD A ONE TIME DOES FOR ATIVAN TO HELP THE PATIENT SLEEP. SEE ORDERS
[2021-03-18 06:13] LABS: Hemoglobin 8.8 g/dL (13.5-17.5); Mean Corpuscular HGB Conc 30.3 g/dL (31.5-36.5); Mean Corpuscular Volume 99 fL (80-100); Platelet Count 330 K/mm3 (150-400); RDW Coefficient Variation 17.4 % (11.7-14.2); Red Blood Cell Count 2.93 M/mm3 (4.30-5.90); White Blood Cell Count 10.06 K/mm3 (4.00-11.30)
[2021-03-18 06:29] LABS: Albumin, Blood 2.1 g/dL (3.4-5.0); Anion Gap 3 mmol/L (6-16); Blood Urea Nitrogen 14 mg/dL (8-24); Bun/Creatinine Ratio 28.3 (12.0-20.0); CO2, Blood 33 mmol/L (21-32); Calcium, Blood 8.6 mg/dL (8.5-10.1); Chloride, Blood 104 mmol/L (98-108); Creatinine, Blood 0.49 mg/dL (0.60-1.20); Glomerular Filtration Rate >60 (60-); Glucose, Blood 125 mg/dL (70-99); Phosphorus, Blood 3.2 mg/dL (2.5-4.9); Potassium, Blood 3.5 mmol/L (3.5-5.5); Sodium, Blood 140 mmol/L (136-145)
--- NOTE | 2021-03-18 07:24 | NUR ---
SHIFT SUMMARY PATIENT IS RESTING IN BED COMFORTABLY. BED IS IN LOW POSITION. CALL LIGHT IS IN REACH. NO ACUTE EVENTS DURING THE NIGHT. VITALS WERE STABLE. PATIENT DID VERY WELL ON 5L NC DURING THE NIGHT. HE GOT ATIVAN TO HELP HIM SLEEP AND HE STATED HE WAS ABLE TO GET SOME SLEEP DURING THE NIGHT. TRACH IS STILL CAPPED. WILL CONTINUE TO MONITOR. REPORT GIVEN TO DAY SHIFT RN.
--- NOTE | 2021-03-18 11:46 | NUR ---
Spiritual care visit conducted. Patient is sitting up in bed and is alert. Patient tells me that he is doing well and is holding on well to his oneyda for strength and inspiration. I provide therapeutic listening, recitation of scripture and a blessing. Patient responds well shows signs of an elevated mood.
--- NOTE | 2021-03-19 07:23 | NUR ---
SHIFT SUMMARY PATIENT IS RESTING COMFORTABLY IN BED. BED IS IN LOW POSITION. CALL LIGHT IS IN REACH. VITALS WERE STABLE. PATIENT IS 4L NC SATRATING ABOVE 95%. NO ACUTE EVENTS DURING THE NIGHT. PATIENT HAD A BARIUM SWALLOW STUDY TODAY AND NEEDED TO BE NPO. CHARGE OPERATOR RN FORGOT TO TURN OF THE TUBE FEED RADIOLGY WAS CALLED TO INFORM THEM THE TUBE FEED HAS BEEN ON ALL NIGHT AND IF IT WILL INTERFERE WITH THE STUDY AND THEY STATED IT THE TUBE FEED WILL NOT INTERFERE WITH THE STUDY. PATIENT WAS REPOSTIONED NEEDED DID NOT WANT TO BE REPOSITIONED Q2 HR. PATIENT WAS GETTING JEVITY AT 70 ML/HR AND FREE WATER AT 30 ML/ 4HR. WILL CONTUINE TO MONITOR. REPORT GIVEN TO DAYSHIFT RN.
--- NOTE | 2021-03-19 15:18 | NUR ---
Spiritual care visit conducted. Patient talks through his COVID experience as a critical incident and so we walk through his experience, his thoughts about it, his reactions to it and the lingering symptoms after it. We then talk about healthy activities going forward. I normalize his experience, and provide therpeutic listening, scripture reading (Ps.16) and prayer. Patient responds well and shows signs of increased peace. I will continue to remain available to patient and family.
[2021-03-20 07:21] LABS: Hematocrit 31.6 % (37.0-53.0); Hemoglobin 9.7 g/dL (13.5-17.5); Mean Corpuscular HGB Conc 30.7 g/dL (31.5-36.5); Mean Corpuscular Volume 98 fL (80-100); Platelet Count 380 K/mm3 (150-400); RDW Coefficient Variation 17.1 % (11.7-14.2); Red Blood Cell Count 3.23 M/mm3 (4.30-5.90); White Blood Cell Count 9.67 K/mm3 (4.00-11.30)
[2021-03-20 07:38] LABS: Albumin, Blood 2.3 g/dL (3.4-5.0); Anion Gap 4 mmol/L (6-16); Blood Urea Nitrogen 13 mg/dL (8-24); Bun/Creatinine Ratio 29.5 (12.0-20.0); CO2, Blood 33 mmol/L (21-32); Calcium, Blood 8.8 mg/dL (8.5-10.1); Chloride, Blood 101 mmol/L (98-108); Creatinine, Blood 0.44 mg/dL (0.60-1.20); Glomerular Filtration Rate >60 (60-); Glucose, Blood 128 mg/dL (70-99); Potassium, Blood 3.3 mmol/L (3.5-5.5); Sodium, Blood 138 mmol/L (136-145)
--- NOTE | 2021-03-20 09:10 | NUR ---
OFF UNIT VIA BED FOR SWALLOW WITH IMAGING.
--- NOTE | 2021-03-20 09:41 | NUR ---
RETURN TO UNIT WITHOUT INCIDENT. TO START LIQUID DIET
--- NOTE | 2021-03-20 14:23 | NUR ---
MD REMOVED TRACHE AND OCCLUSIVE DRESSING TO SITE. REMAINS ON 2L NC AND TOLERATING. TO CHAIR AND VISITING. NO S/S CARDIOPULMONARY DISTRESS OBSERVED OR NOTED. WILL CONTINUE TO MONITOR. FIRST PO PUREED MEAL THIS AM - POOR INTAKE. CONTINUING NGT FEEDINGS.
--- NOTE | 2021-03-21 06:35 | NUR ---
TRAVEL CONSULTANT SUMMARY PT A/O X4, PCU TRANSFER ARRIVED TO FLOOR AROUND 2200. SLEPT WELL TONIGHT, DENIES PAIN, NAUSEA. ON 2L O2 VIA NC. AZAR PATENT AND DRAINING TO GRAVITY. LIFT TO TRANSFER. CALL LIGHT WITHIN REACH, VITALS STABLE, NO ACUTE CHANGES.
--- NOTE | 2021-03-21 13:32 | NUR ---
PT REFUSED SCHEDULED PAIN MEDICATION. HAD < 50 OF LUNCH , JEVITY 1.5 DIANNE GIVEN PLUS FLUSH 280 ML. TOLERATED WELL, MONITORING CONT.
--- NOTE | 2021-03-21 18:01 | NUR ---
AAOX4, NO ACUTE DISTRESS NOTED, REFUSED SCHEDULED PAIN ALL SHIFT, PT STATES HE IS NOT IN PAIN,WORKED WITH PT,TOLERATED FAIRLY. AZAR CARE DONE AND PATENT DRAINING CLEAR YELLOW URINE,NO FOUL ODOR NOTED. PT VERBALIZES NEEDS. NUTRITIONAL SUPPLEMENT GIVEN NEEDED. POTASSIUM LEVEL NORMAL AFTER AM DRAW THIS MORNING 3.8. VISITED WITH . STABLE ,CALL LIGHT WNL,MONITORING CONTINUES.
--- NOTE | 2021-03-22 05:01 | NUR ---
SUMMARY NO NEW ISSUES. PT REFUSED PAIN MEDS AND SEROQUEL. PT DENIES PAIN OR DISCOMFORT. PT WANTS TO USE THE TOILET IN BATHROOM. PT INFORMED OF HIM BEING A HIGH FALL RISK AND LIFT PATIENT. PT REFUSED BEDPAN. PT HAS BEEN SLEEPING T/O SHIFT. PT CURRENTLY SLEEPING. CALL LIGHT IN REACH.
[2021-03-22 06:19] LABS: Albumin, Blood 2.6 g/dL (3.4-5.0); Anion Gap 4 mmol/L (6-16); Blood Urea Nitrogen 17 mg/dL (8-24); CO2, Blood 31 mmol/L (21-32); Calcium, Blood 9.1 mg/dL (8.5-10.1); Chloride, Blood 104 mmol/L (98-108); Creatinine, Blood 0.59 mg/dL (0.60-1.20); Glomerular Filtration Rate >60 (60-); Glucose, Blood 106 mg/dL (70-99); Phosphorus, Blood 3.5 mg/dL (2.5-4.9); Sodium, Blood 139 mmol/L (136-145)
--- NOTE | 2021-03-22 18:18 | NUR ---
PT ALERT ORIENTED X 4. PT MEDICATED PER EMAR FOR PAIN.PT DENIES N/V,SOB.PT ON REMAINS ON 2L NC SATS IN THE 90S.PT EAT LESS THAN 50% FOR BREAKFAST,LUNCH AND DINNER BUT PT REFUSED TUBE FEEDING.PT STATED THAT HIS STOMACH IS VERY UNCOMFORTABLE.PT ABD IS SOFT NON TENDER.PT HAVE A BM THIS AM,PT NICELY AZAR DRAINING BY GRAVITY NORMAL COLOR URINE.PT HAS NO ACUTE EVENT T/O,PT TALKINK TO FAMILY AT BEDSIDE.PT IN BED,BED LOCKED AND IN LOW POSITION,CALL LIGHT IN REACH WILL CONTINUE TO MONITOR.
--- NOTE | 2021-03-23 02:45 | NUR ---
SHIFT SUMMARY NO ACUTE CHANGES. PT REFUSED SCHEDULED MEDICATIONS EARLIER IN THE SHIFT. ON 2L O2. PT DENIES PAIN AND STS DOES NOT NEED ANYTHING AT THIS TIME. HE IS A&O X 4. PT RESTING THROUGHOUT THE NIGHT.
--- NOTE | 2021-03-23 15:36 | NUR ---
Spiritual care visit conducted. Patient is sitting up in bed and alert. Patient's spouse, Cecy is bedside. They voice their concerns about having patient DC to [facility]. Cecy states that she is looking into other options in hopes that the patient can go to a rehabilitation center that specializes in recovery of the specific nature that the patient is dealing with (ie severe back injuries, strokes, a month in ICU with COVID on a vent/trech etc). They also discuss many other stressors they are dealing with. I provide a calming pressence, gentle social services counselor and prayer. Patient and Cecy voice their appreciation. I will continue to remain available to patient and family.
--- NOTE | 2021-03-23 17:36 | NUR ---
SHIFT SUMMARY PT IS AOX4. PT DENIES PAIN, N/V, SOB. PT IS ON 2 L O2 VIA NC WITH SATS GREATER THAN 90%. PT WORKED WITH PT/OT KATIA AND REMAINS LIFT STATUS. PT'S IN TO VISIT THIS TIGRE. PT APPETITE REMAINS POOR, REQUIRING SUPPLEMENTATION WITH DOBHOFF TUBE FEEDS. PLAN IS FOR DC TO REHAB. PT EVALUATED BY ST THIS SHIFT. PT IS IN BED, CALL LIGHT IN REACH, LOW POSITION.
--- NOTE | 2021-03-24 05:10 | NUR ---
55 year old MAle admitted 02/10/2021 with covid 19 tolerated pureed diet 50% so did not require ng tube feed bolus. Dobhoff patent, did receive liquid med via NG. Took other sm meds orally. PT on 3 l nc 98% sat this am. PT did own oral care at HS. PT had fecal incontinent x 1 dark tarry stool. On IV protonix this AM. PT weak deconditioned, working with therapy PT/ OT/ST/RT. Potential DC to SNF for rehab post covid 19?
[2021-03-24 10:39] LABS: BASOPHILS ABSOLUTE AUTO 0.12 K/mm3 (0.00-0.23); BASOPHILS PERCENT AUTO 1 % (0-2); EOSINOPHILS ABSOLUTE AUTO 0.43 K/mm3 (0.00-0.68); EOSINOPHILS PERCENT AUTO 3 % (0-6); Hematocrit 35.9 % (37.0-53.0); Hemoglobin 11.1 g/dL (13.5-17.5); IMMATURE GRAN PERCENT AUTO 1 % (0-1); LYMPHOCYTES ABSOLUTE AUTO 1.24 K/mm3 (0.84-5.20); LYMPHOCYTES PERCENT AUTO 8 % (21-46); MONOCYTES ABSOLUTE AUTO 1.22 K/mm3 (0.16-1.47); MONOCYTES PERCENT AUTO 8 % (4-13); Mean Corpuscular HGB 29.4 pg (26.0-34.0); Mean Corpuscular HGB Conc 30.9 g/dL (31.5-36.5); Mean Corpuscular Volume 95 fL (80-100); Mean Platelet Volume 9.8 fL (9.1-12.4); NEUTROPHILS PERCENT AUTO 80 % (41-73); Platelet Count 445 K/mm3 (150-400); RDW Coefficient Variation 16.3 % (11.7-14.2); RDW Standard Deviation 57.1 fL (35.1-46.3); Red Blood Cell Count 3.78 M/mm3 (4.30-5.90); White Blood Cell Count 16.31 K/mm3 (4.00-11.30)
[2021-03-24 11:04] LABS: Albumin, Blood 2.9 g/dL (3.4-5.0); Anion Gap 7 mmol/L (6-16); Blood Urea Nitrogen 19 mg/dL (8-24); Bun/Creatinine Ratio 35.6 (12.0-20.0); CO2, Blood 27 mmol/L (21-32); Calcium, Blood 9.6 mg/dL (8.5-10.1); Chloride, Blood 100 mmol/L (98-108); Creatinine, Blood 0.53 mg/dL (0.60-1.20); Glomerular Filtration Rate >60 (60-); Glucose, Blood 124 mg/dL (70-99); Magnesium, Blood 2.1 mg/dL (1.6-2.4); Phosphorus, Blood 3.3 mg/dL (2.5-4.9); Potassium, Blood 3.6 mmol/L (3.5-5.5); Sodium, Blood 134 mmol/L (136-145)
--- NOTE | 2021-03-24 17:14 | NUR ---
SHIFT SUMMARY PATIENT REPORTED FEELING SHORT OF BREATH THIS AM. PATIENT HR NOTED TO BE IN 130'S AND RR IN 30'S. PATIENT GIVEN SCHEDULED METOPROLOL AND PAIN MEDICATION. NO PO INTAKE, TUBE FEEDS HELD DUE TO NAUSEA. NAUSEA MEDICATION DECLINED. CBG 136. HR IN 90'S AND RESPIRATIONS SLOWED TO 20'S. CHEST XRAY COMPLETED. NEBULIZER GIVEN, FLUTTER VALVE AND INCENTIVE SPIROMETER DEMONSTRATED BY RT. ANXIETY MEDICATION OFFERED BUT DECLINED. AT BEDSIDE.
--- NOTE | 2021-03-24 22:26 | NUR ---
PT accidently dislodged dobhoff feeding tube. IT was removed when PT felt it was stabbing him inside the throat & has was gagging. Tolerating diet & able to drink high calorie supplements. Enc PT to do flutter & increase fluid intake. 1 to 3 l nc PT has coarse lung soungs in all malhotra. Flat affect anxity with accidental disloging of dobhoff tube. 1 mg IV ativan given. Resting quietly. Trach dressing patent.
--- NOTE | 2021-03-25 03:37 | NUR ---
DR BETTS updated PT accidently dislodged dobhoff feeding tube. Notify MD for possible reinsertion? order written. Chnged pain med & stool softner to PRN versus scheduled.
--- NOTE | 2021-03-25 06:44 | NUR ---
PT continues with flat effect. Can drink high bety supplements & ICe water. Denies acute distress, covid 19 resp failure intubation with trach for ventilation. 1 to 3 l nc to keep sats greater than 90%.
--- NOTE | 2021-03-25 16:49 | NUR ---
SHIFT SUMMARY PATIENT MEDICATED X1 FOR PAIN, DENIES NAUSEA AND SHORTNESS OF BREATH. WORKED WITH PT/OT. ATTEMPTED TO STAND BUT UNABLE TO BEAR WEIGHT. LIFT TO CHAIR. PICC LINE DRESSING CHANGE COMPLETED. SPEECH THERAPY ADVANCED DIET TO SOFT BITE SIZED AND MEDS WHOLE WITH WATER. BOWEL CARE GIVEN. PER DR. PATEL, DOBHOFF DOES NOT NEED TO BE REINSERTED. PATIENT PLEASANT AND COOPERATIVE WITH CARE BUT STILL EXPRESSES ANXIETY AND FRUSTRATION OVER HIS LOSS OF PHYSICAL ABILITY.
--- NOTE | 2021-03-26 04:02 | NUR ---
SHIFT SUMMARY PATIENT HAD NO ACUTE CHANGES OBSERVED. AXOX 3 AND BEDREST. FLAT AFFECT. ON 3L O2 NC AND RA BASELINE. PICC LINE AKASH INTACT. TAKES MEDICATION WHOLE WITH WATER. DENIES PAIN, SOB, AND N/V. VSS/AFEBRILE. AZAR PATENT AND DRAINING TO GRAVITY. COOPERATIVE WITH CARE. CALL LIGHT IN REACH. BED IN LOWEST POSITION. WILL CONTINUE TO MONITOR UNTIL DAY SHIFT NURSE ASSUMES CARE.
--- NOTE | 2021-03-26 08:06 | NUR ---
pt laying in bed on his side, wakes easily, a/ox3, able to answer questions, follows commands well, cooperative with care, lungs have insp rub/snore in upper malhotra, clear in bases, resp even and unlabored, no cough noted at this time, hrr, no edema noted, ppp+2, cap refill <3sec, vs stable, afebrile, iv to willy, site is clear, abd soft nontender, linton cath, skin c/w/d, is on bedrest, call light in reach.
--- NOTE | 2021-03-26 12:51 | NUR ---
Spiritual care visit conducted. Patient is lying in bed and alert. Patient talks about the challenges of having his mind recovering quickly and his body being so limited in mobility and strength. We talk at length about the mental perspective needed to get through this long recovery, the tools available to him and the possible good that can come out of the struggle. Patient shares his personal struggles and allows for gentle cancer genetic counselor, emotional support and prayer. Patient responds well and shows signs of being encouraged in his oneyda and his perspective. I will continue to remian available to patient and family.
--- NOTE | 2021-03-26 19:07 | NUR ---
pt had an uneventful day, in to see him this afternoon, no acute changes this shift. call light in reach.
[2021-03-27 06:28] LABS: BASOPHILS ABSOLUTE AUTO 0.05 K/mm3 (0.00-0.23); BASOPHILS PERCENT AUTO 0 % (0-2); EOSINOPHILS PERCENT AUTO 2 % (0-6); Hematocrit 30.4 % (37.0-53.0); Hemoglobin 9.5 g/dL (13.5-17.5); IMMATURE GRAN ABSOLUTE AUTO 0.24 K/mm3 (0.00-0.10); IMMATURE GRAN PERCENT AUTO 2 % (0-1); LYMPHOCYTES ABSOLUTE AUTO 1.35 K/mm3 (0.84-5.20); LYMPHOCYTES PERCENT AUTO 10 % (21-46); MONOCYTES ABSOLUTE AUTO 1.21 K/mm3 (0.16-1.47); MONOCYTES PERCENT AUTO 9 % (4-13); Mean Corpuscular HGB 30.1 pg (26.0-34.0); Mean Corpuscular HGB Conc 31.3 g/dL (31.5-36.5); Mean Corpuscular Volume 96 fL (80-100); Mean Platelet Volume 10.3 fL (9.1-12.4); NEUTROPHILS ABSOLUTE AUTO 9.97 K/mm3 (1.96-9.15); NEUTROPHILS PERCENT AUTO 77 % (41-73); Platelet Count 235 K/mm3 (150-400); RDW Coefficient Variation 15.5 % (11.7-14.2); RDW Standard Deviation 54.1 fL (35.1-46.3); Red Blood Cell Count 3.16 M/mm3 (4.30-5.90); White Blood Cell Count 13.02 K/mm3 (4.00-11.30)
--- NOTE | 2021-03-27 06:52 | NUR ---
SHIFT SUMMARY PATIENT ALERT AND ORIENTED. HAD NO COMPLAINTS OF PAIN OR SHORTNESS OF BREATH. NO ACUTE ISSUES NOTED OVERNIGHT. CALL LIGHT WITHIN REACH. REPORT GIVEN TO ONCOMING RN.
[2021-03-27 06:53] LABS: Albumin, Blood 2.5 g/dL (3.4-5.0); Anion Gap 5 mmol/L (6-16); Blood Urea Nitrogen 19 mg/dL (8-24); Bun/Creatinine Ratio 40.3 (12.0-20.0); CO2, Blood 30 mmol/L (21-32); Chloride, Blood 100 mmol/L (98-108); Creatinine, Blood 0.47 mg/dL (0.60-1.20); Glomerular Filtration Rate >60 (60-); Glucose, Blood 101 mg/dL (70-99); Phosphorus, Blood 3.2 mg/dL (2.5-4.9); Potassium, Blood 3.4 mmol/L (3.5-5.5); Sodium, Blood 135 mmol/L (136-145)
--- NOTE | 2021-03-27 18:35 | NUR ---
SHIFT SUMMARY PATIENT IS A/O X4. PLEASANT AND COOPERATIVE WITH CARE. PATIENT WORKED WITH PHYSICAL THERAPY, OCCUPATIONAL THERAPY, AND WAS DISCHARGED FROM SPEECH THERAPY THIS SHIFT. PATIENT SPENT MOST OF THIS AFTERNOON WITH SPOUSE AT THE BEDSIDE. VITAL SIGNS STABLE NO ACUTE CHANGES THIS SHIFT. THE PATIENT MAY POSSIBLY DISCHARGE TO A IRU MID NEXT WEEK IF ALL WORKS ACCORDINGLY.
--- NOTE | 2021-03-28 06:41 | NUR ---
PATIENT IS ALERT AND ORIENTED X4. PATIENT AZAR CATHETER PATENT, DRAINING CLEAR YELLOW URINE. PATIENT IS POST COVID, DENIES SOB, CHEST PAIN, N/V OR DISTRESS. PATIENT CONTINUE WITH GENERALIZED WEAKNESS AND L SIDED MUSCLE ACHES. PATIENT COMPLAIN OF LEFT LEG AND TOES PAIN THIS AM. PATIENT WAS MEDICATED WITH FENTANYL 50MCG VIA IV AT 0604, EFFECT STILL PENDING. WILL CONTINUE TO MONITOR.
--- NOTE | 2021-03-28 18:00 | NUR ---
SHIFT SUMMARY PATIENT IS ALERT AND ORIENTED, AND COOPERATIVE WITH CARE. PATIENT HAS BEEN TOLERATING DIET WELL. ON 3 LITERS VIA NASAL CANNULA SPO2 GREATER THAN 90%, AZAR PATENT AND DRAINING TO GRAVITY. PATIENT HAD PAIN IN LEFT LEG THIS SHIFT. ULTRASOUND DONE ON LEG TO CHECK FOR DVT. PATIENT IS WAITING ON A BED AT AN IRU OR SNF HOPEFULLY MID NEXT WEEK. VITAL SIGNS STABLE, NOTHING FURTHER TO REPORT AT THIS TIME. WILL CONTINUE TO MONITOR PATIENT UNTIL SHIFT REPORT IS GIVEN TO ONCOMING NURSE.
--- NOTE | 2021-03-29 03:45 | NUR ---
SHIFT SUMMARY NO ACUTE CHANGES TO REPORT THIS SHIFT. PT HAS RESTED MOST OF THE NIGHT. MEDICATED FOR ANXIETY AND PAIN THIS SHIFT PER PT REQUEST. PT FLAT AND WITHDRAWN. A/OX4, MAKES NEEDS KNOWN. BED IN LOWEST POSITION, CALL LIGHT WITHIN REACH.
[2021-03-29 05:17] LABS: Hematocrit 34.5 % (37.0-53.0); Hemoglobin 10.7 g/dL (13.5-17.5); Mean Corpuscular HGB 29.4 pg (26.0-34.0); Mean Corpuscular Volume 95 fL (80-100); Mean Platelet Volume 10.3 fL (9.1-12.4); Platelet Count 280 K/mm3 (150-400); RDW Coefficient Variation 15.2 % (11.7-14.2); RDW Standard Deviation 52.7 fL (35.1-46.3); Red Blood Cell Count 3.64 M/mm3 (4.30-5.90)
[2021-03-29 05:49] LABS: Anion Gap 7 mmol/L (6-16); Blood Urea Nitrogen 15 mg/dL (8-24); Bun/Creatinine Ratio 28.3 (12.0-20.0); CO2, Blood 27 mmol/L (21-32); Calcium, Blood 9.5 mg/dL (8.5-10.1); Chloride, Blood 100 mmol/L (98-108); Creatinine, Blood 0.53 mg/dL (0.60-1.20); Glomerular Filtration Rate >60 (60-); Glucose, Blood 94 mg/dL (70-99); Potassium, Blood 3.7 mmol/L (3.5-5.5); Sodium, Blood 134 mmol/L (136-145)
--- NOTE | 2021-03-29 17:58 | NUR ---
SHIFT SUMMARY PATIENT IS ALERT AND ORIENTED X4, PLEASANT AND COOPERATIVE WITH CARE. PATIENT IS ON RA SATTING AT 95%. PATIENT CONTINUES TO IMPROVE ON THEIR STRENGTH EACH DAY. ULTRASOUND YESTERDAY DETERMINED PATIENT HAS AN EXTENSIVE DVT. THE PLAN TOMORROW IS TO HOPEFULLY HAVE A CONSULT FROM DR. POPE REGARDING TREATMENT FOR THE DVT. PATIENT IS STILL WAITING ON DISCHARGE APPROVAL FOR IRU OR SNF HOPEFULLY MID WEEK. VITAL SIGNS STABLE, NO ACUTE CHANGES THIS SHIFT. THIS NURSE WILL CONTINUE TO CARE FOR PATIENT UNTIL SHIFT REPORT IS MADE TO ONCOMING NURSE.
--- NOTE | 2021-03-30 04:45 | NUR ---
VITAL SIGNS STABLE, NO COMPLAINTS OF PAIN. NO NEW ISSUES NOTED. SAFETY MEASURES IN PLACE. WILL CONTINUE TO MONITOR UNTIL CARE IS ASSUMED BY DAY NURSE
--- NOTE | 2021-03-30 16:20 | NUR ---
Spiritual care visit conducted. Patient' spouse, Cecy, tells me that patient is surgery for a couple of blood clots. I provide prayer for surgery and for family as they continue to carry the worry for patient in his very lengthy recovery. Cecy responds well and voices appreciation for the time and prayer.
--- NOTE | 2021-03-30 18:22 | NUR ---
Alert and oriented x3 , able to make needs known. Has done bilateral thrombectomy and reportedly to have significant clot removed . Flow stasis devices at popiteal veins sites are intact , no bleeding noted. Mild numbness on right foot post thrombectomy resolved. Denies any nausea, headache , dizziness and chest pain. No SOB noted. Vital signs are stable. will continue to monitor.
--- NOTE | 2021-03-31 06:19 | NUR ---
PATIENT IS ALERT AND ORIENTED. PATIENT WAS NOTED WITH SOME RESTLESS AND DISTRESS. PATIENT WAS OFFERED PAIN MEDICINE AND PATIENT STATE "NO". PATIENT HAD BILATERAL THROMBECTOMY YESTERDAY, BILATERAL DEVICES ARE INTACT, NO BLEEDING NOTED. PATIENT REPORTED HE SLEPT OK. PATIENT DENIES, N/V, CP, HEADACH, OR SOB. WILL CONTINUE TO MONITOR.
--- NOTE | 2021-03-31 18:26 | NUR ---
Alert and oriented x3 , able to make needs known. Vital signs are stable. c/o of mild numbness on left foot , denies any tingling. No nausea , headache , chest pain or SOB reported. Bilateral flow stasis devices was removed , no bleeding noted at the poptiteal sites. Call appropriately and call light within reach. Continue to monitor.
--- NOTE | 2021-04-01 03:16 | NUR ---
PT RESTING IN BED WITHOUT DISTRESS. HE DENIES CHEST PAIN OR OTHER DISCOMFORT. RESP UNLABORED. VSS. PEDAL PULSES PALPABLE. AZAR PATENT DRAINING CLEAR YELLOW URINE. NO CHANGE IN STATUS NOTED. SAFETY AND COMFORT MEASURES MAINTAINED.
[2021-04-01 06:33] LABS: Hematocrit 29.2 % (37.0-53.0); Mean Corpuscular HGB 29.1 pg (26.0-34.0); Mean Corpuscular HGB Conc 30.8 g/dL (31.5-36.5); Mean Corpuscular Volume 95 fL (80-100); Mean Platelet Volume 10.3 fL (9.1-12.4); NRBC ABSOLUTE 0.02 K/mm3 (0.00-0.02); NRBC Auto 0.2 /100 WBC (0.0-0.2); Platelet Count 288 K/mm3 (150-400); RDW Coefficient Variation 15.5 % (11.7-14.2); RDW Standard Deviation 53.1 fL (35.1-46.3); Red Blood Cell Count 3.09 M/mm3 (4.30-5.90); White Blood Cell Count 11.55 K/mm3 (4.00-11.30)
[2021-04-01 06:56] LABS: Anion Gap 5 mmol/L (6-16); Blood Urea Nitrogen 11 mg/dL (8-24); Bun/Creatinine Ratio 21.2 (12.0-20.0); CO2, Blood 26 mmol/L (21-32); Calcium, Blood 8.7 mg/dL (8.5-10.1); Chloride, Blood 107 mmol/L (98-108); Creatinine, Blood 0.52 mg/dL (0.60-1.20); Glomerular Filtration Rate >60 (60-); Glucose, Blood 92 mg/dL (70-99); Potassium, Blood 3.5 mmol/L (3.5-5.5); Sodium, Blood 138 mmol/L (136-145)
--- NOTE | 2021-04-01 18:35 | NUR ---
Alert and oriented x3 , Denies any shortness of breath, dizziness,nausea , headache or chest pain. Bilateral poptiteal flow devices sites CDI, no bleeding noted. Vital signs are stable. Worked with PT/OT for strength and endurance , was up twice and participated as tolerated. linton cath in place and drained yellow urine. Call appropriately and call light within reach.
--- NOTE | 2021-04-02 04:29 | NUR ---
ETL APPLICATION DEVELOPER SUMMARY ADMITTED FOR COVID (RESOLVED). PT IS FULL CODE. PLAN FOR DC TO SNF DUE TO EXTREME WEAKNESS AND INABILITY TO STAND ON HIS OWN. PT DOES SEEM GENERALLY WEAK AND DOES ADMIT TO SOME PREVIOUS L SIDED WEAKNESS, THOUGH WAS WORKING REFERRAL MANAGEMENT LIAISON BEFORE COVID. PT AGREEABLE TO REHAB. PT HAS BEEN RESTING THROUGHOUT THE SHIFT. NO OTHER CONCERNS THIS SHIFT.
--- NOTE | 2021-04-02 12:25 | NUR ---
Met with pt in room where he was laying. He appeared well taken of and engaged well in conversation. Pt talks about his illness and the effects it has had on him. Pt is hopeful to moved to a rehab facility and stated he may be moved tomorrow or Tuesday. PT enters and assists pt in strengthing for a time. Pt reflects on family and his desire for recovery. RN enters to move pt to another room. Visit ends.
--- NOTE | 2021-04-02 18:21 | NUR ---
Alert and oriented x3 ,Denies any SOB , chest pain, headache or dizziness. One person with ADLS.Two persons maximum assist with transfer. C/O right groin pain and back of right knee pain. Ultrasound was ordered ,the result shows bilateral above the knee DVT. Dr Ro was notified and he indicated that he spoke with Dr Arriaga . Received a new order for xarelto 10 mg and was given. Vital signs are stable. Asher cath in place and draining clear yellow urine. Call appropriately and call light within reach.
[2021-04-02 21:51] LABS: International Normalized Ratio 1.35; Prothrombin Time Results 13.9 Sec (9.7-11.5)
--- NOTE | 2021-04-03 05:06 | NUR ---
PATIENT IS A/OX4. PATIENT DENIES SOB OR ANY ACUTE DISTRESS. PATIENT WAS SEEN BY DR. KING CAMARENA THIS PM AND HAD A LONG CONVERSATION WITH PATIENT. DR. MALIK ORDERED CT SCAN STAT, HE DISCONTINUED XARELTO AND STARTED PATIENT ON HEPARIN DRIP AN A BOLUS OF HEPARIN 7,125 UNIT WAS ORDERED AND ADMINISTERED WELL. PATIENT CONTINUE WITH BILATERAL DVT, AND DR. CASON ALSO ORDERED PATIENT TO BE BROUHGT TO THE ETHERNET NETWORK ARCHITECT THIS MORNING. PATIENT WAS RUNNING A TEMP OF 101.2, TYLENOL 650 MG FOR FEVER WAS ADMINISTERED X2 AND EARLY THIS MORNING PATIENT'S TEMP WAS NOTED TO BE 98.5 ORALLY. PATIENT WAS INCONTINENT OF A LARGE BOWEL MOVEMENT. WILL CONTINUE TO MONITOR. BOWEL MOVEMENT.
[2021-04-03 08:28] LABS: Hematocrit 30.6 % (37.0-53.0); Hemoglobin 9.4 g/dL (13.5-17.5)
[2021-04-03 09:11] LABS: SARS-Cov-2 (COVID-19) PCR, MMC NEGATIVE (NEGATIVE)
--- NOTE | 2021-04-03 11:27 | NUR ---
Spiritual care visit conducted. Patient is lying in bed and alert. Patient tells me about his upcoming procedure to remove blood clots from his legs. He tells me about the relief that came when he heard that he was accepted at a rehabilitation center in [place]. Patient states that he was getting very discouraged by the news that he may be forced into going to [facility] (Patient has had a poor experience in that facility). I acknowledge patient's courage and perserverance in battling through a very long and challenging recovery. I provide pre-procedure prayer, encouragement and companionship. Patient responds well and displays evidence of increased peace. I will continue to remain available to patient and family.
[2021-04-03 12:28] LABS: Platelet Count 364 K/mm3 (150-400)
[2021-04-03 15:42] LABS: Vancomycin, Trough <0.8 ug/mL (5.0-10.0)
--- NOTE | 2021-04-03 15:57 | NUR ---
PT IN PAIN- SPOKE TO PT ABOUT TAKING SOME PAIN MEDICATION, FAMILY AT THE BEDSIDE, PT VERY FIDGETTY STATES HE DOES NOT WANT ANYTHING FOR PAIN UNTIL HE KNOWS WHAT DR CAMARENA PLANS TO DO, IF HE IS GOING TO THE [facility] TONIGHT OR TOMORROW, IT SOUNDS LIKE WAITING TO DO THE PROCEDURE AN OUT PT MAY BE DIFFICULT TO ACCOMPLISH HE IS SLATED TO GO TO REHAB IN [place]. THINGS WERE UNCERTAIN WHEN THE DR SPOKE TO THE PT AND FAMILY. WAITING TO HEAR BACK FROM THE .
--- NOTE | 2021-04-03 16:10 | NUR ---
DR CAMARENA AT THE BEDSIDE- VERBAL OT ORDER RECIEVED FOR IV FENTANYL NOW. PT PAIN IS AT 7/10 PER PT NON-VERBAL SIGNS OF PAIN AND DISTRESS NOTED. DR AWARE PT HAS BEEN DECLINING PAIN MEDICATION. PT AGREED TO TAKE THE MEDICINE AT THIS TIME ONCE HE WAS ASSURED BY IT WILL NOT INTERFERE WITH HIS PROCEDURE IN THE [facility] THIS EVENING. PT WILL BE MEDICATED FOR PAIN PRIOR TO GOING TO THE [facility]. PT SPOUSE IS AWARE THE PT WILL GO TO ICU 16 POST PROCEDURE.
[2021-04-04 02:19] LABS: BASOPHILS ABSOLUTE AUTO 0.07 K/mm3 (0.00-0.23); BASOPHILS PERCENT AUTO 0 % (0-2); EOSINOPHILS ABSOLUTE AUTO 0.29 K/mm3 (0.00-0.68); EOSINOPHILS PERCENT AUTO 1 % (0-6); Hemoglobin 9.2 g/dL (13.5-17.5); IMMATURE GRAN ABSOLUTE AUTO 0.67 K/mm3 (0.00-0.10); IMMATURE GRAN PERCENT AUTO 3 % (0-1); LYMPHOCYTES ABSOLUTE AUTO 1.25 K/mm3 (0.84-5.20); LYMPHOCYTES PERCENT AUTO 6 % (21-46); MONOCYTES ABSOLUTE AUTO 1.75 K/mm3 (0.16-1.47); MONOCYTES PERCENT AUTO 8 % (4-13); Mean Corpuscular HGB 28.8 pg (26.0-34.0); Mean Corpuscular HGB Conc 30.7 g/dL (31.5-36.5); Mean Corpuscular Volume 94 fL (80-100); Mean Platelet Volume 9.3 fL (9.1-12.4); NEUTROPHILS ABSOLUTE AUTO 17.11 K/mm3 (1.96-9.15); NEUTROPHILS PERCENT AUTO 81 % (41-73); NRBC ABSOLUTE 0.07 K/mm3 (0.00-0.02); NRBC Auto 0.3 /100 WBC (0.0-0.2); Platelet Count 263 K/mm3 (150-400); RDW Coefficient Variation 15.7 % (11.7-14.2); RDW Standard Deviation 53.6 fL (35.1-46.3); White Blood Cell Count 21.14 K/mm3 (4.00-11.30)
[2021-04-04 02:35] LABS: Albumin, Blood 2.4 g/dL (3.4-5.0); Anion Gap 4 mmol/L (6-16); Blood Urea Nitrogen 13 mg/dL (8-24); Bun/Creatinine Ratio 21.5 (12.0-20.0); CO2, Blood 26 mmol/L (21-32); Calcium, Blood 8.6 mg/dL (8.5-10.1); Chloride, Blood 106 mmol/L (98-108); Glomerular Filtration Rate >60 (60-); Glucose, Blood 109 mg/dL (70-99); Phosphorus, Blood 4.7 mg/dL (2.5-4.9); Potassium, Blood 3.9 mmol/L (3.5-5.5); Sodium, Blood 136 mmol/L (136-145)
--- NOTE | 2021-04-04 06:25 | NUR ---
.SUMMARY NEURO-WNL, A/OX4 BLE WEAK BUT CAN WIGGLE TOES. FOLLOWS ALL COMMANDS AND CALL LIGHT USE DEMONSTRATED. CV. HTN WITH INCREASED PAIN. SINUS TACH PALPABLE PULSES X 4. RESP. 2L NC. TITRATED OFF PT WAS BREATHING THROUGH MOUTH AND PT DESAT TO 86%. TURNED O2 BACK ON AT 2L FOR REMAINDER OF SHIFT. CLEAR T/O. GI. NPO AFTER MIDNIGHT FOR PATTERN MARKER. NO N/V. , XU CLEAR. ADEQUATE OUT PUT. SKIN BLE IV CATHS FOR TPA AND HEPARIN.
--- NOTE | 2021-04-04 10:12 | NUR ---
0800 Pt recieved on bed AAOX4, VSS and in no acute distress. Pt has BLE intoducers infusing Heparin and anteplase. Assessment done; pt has palpable pedal and positerior tibial pulses. Pt able to move upper extremities but is very weak. PT NPO, pending Cathlab procedure. 0831 Dr. Ling @ bedside seen pt; pt sent down to Cath for procedure. Pt afebile and meds given. Will monitor pt once pt returns for procedure.
[2021-04-04 14:59] LABS: Hematocrit 26.5 % (37.0-53.0); Mean Corpuscular HGB 28.9 pg (26.0-34.0); Mean Corpuscular HGB Conc 30.2 g/dL (31.5-36.5); Mean Corpuscular Volume 96 fL (80-100); Mean Platelet Volume 10.1 fL (9.1-12.4); NRBC ABSOLUTE 0.05 K/mm3 (0.00-0.02); NRBC Auto 0.3 /100 WBC (0.0-0.2); Platelet Count 268 K/mm3 (150-400); RDW Coefficient Variation 15.7 % (11.7-14.2); RDW Standard Deviation 54.5 fL (35.1-46.3); Red Blood Cell Count 2.77 M/mm3 (4.30-5.90); White Blood Cell Count 18.39 K/mm3 (4.00-11.30)
--- NOTE | 2021-04-04 19:14 | NUR ---
0800 Pt recieved on bed AAOX4, on NC 2L saturating well. Pt has Ateplase and Heparin infusing through sheath in BLE. 0900 Pt sent to Cathlab @ 0900 1500 Pt return from Cathlab; assessment done. Pt has BLE pedal and posterior pulses. Pt on NC @ 2L tolerating well. Dr. Ling seen and updated pt on status and plan of care. 1700 Asher D/C, pt tolerated well. Pt afebrile, VSS and in no acute distress. Report given to BRIANNA Krause.
[2021-04-05 06:19] LABS: Hematocrit 19.5 % (37.0-53.0); Mean Corpuscular HGB 28.3 pg (26.0-34.0); Mean Corpuscular HGB Conc 29.7 g/dL (31.5-36.5); Mean Corpuscular Volume 95 fL (80-100); Mean Platelet Volume 9.9 fL (9.1-12.4); NRBC ABSOLUTE 0.03 K/mm3 (0.00-0.02); NRBC Auto 0.2 /100 WBC (0.0-0.2); Platelet Count 210 K/mm3 (150-400); RDW Coefficient Variation 15.5 % (11.7-14.2); Red Blood Cell Count 2.05 M/mm3 (4.30-5.90); White Blood Cell Count 14.51 K/mm3 (4.00-11.30)
[2021-04-05 06:45] LABS: BAND PERCENT MAN 1 % (0-8); BASOPHILS PERCENT MAN 0 % (0-2); EOSINOPHILS ABSOLUTE MAN 0.29 K/mm3 (0.00-0.68); EOSINOPHILS PERCENT MAN 2 % (0-6); LYMPHOCYTES ABSOLUTE MAN 0.14 K/mm3 (0.84-5.20); LYMPHOCYTES PERCENT MAN 1 % (21-46); METAMYELOCYTE ABSOLUTE MAN 0.14 K/mm3 (0.00-0.00); METAMYELOCYTE PERCENT MAN 1 % (0-0); MONOCYTES ABSOLUTE MAN 0.29 K/mm3 (0.16-1.47); MONOCYTES PERCENT MAN 2 % (4-13); MYELOCYTE ABSOLUTE MAN 0.14 K/mm3 (0.00-0.00); MYELOCYTE PERCENT MAN 1 % (0-0); NEUTROPHILS ABSOLUTE MAN 13.49 K/mm3 (1.96-9.15); SEG NEUTROPHILS PERCENT MAN 92 % (41-73); TOTAL CELLS COUNTED 100
[2021-04-05 06:49] LABS: Albumin, Blood 1.6 g/dL (3.4-5.0); Anion Gap 7 mmol/L (6-16); Blood Urea Nitrogen 7 mg/dL (8-24); Bun/Creatinine Ratio 15.4 (12.0-20.0); CO2, Blood 21 mmol/L (21-32); Calcium, Blood 7.5 mg/dL (8.5-10.1); Chloride, Blood 110 mmol/L (98-108); Creatinine, Blood 0.45 mg/dL (0.60-1.20); Glomerular Filtration Rate >60 (60-); Glucose, Blood 104 mg/dL (70-99); Phosphorus, Blood 2.1 mg/dL (2.5-4.9); Potassium, Blood 3.5 mmol/L (3.5-5.5); Sodium, Blood 138 mmol/L (136-145)
--- NOTE | 2021-04-05 06:51 | NUR ---
SUMMARY NEURO- A/O X4. VALLES. WEAK BLE. CV ST. BP WNL PALPABLE PU;LSES X4 RESP CLEAR T/O. 2L NC GI DIET ORDERED. POOR APETITE. NO BM OVER NIGHT . BLADDER SCAN FOR 547. PT ATTEMPTING TO URINATE. SKIN. DRESSINGS ALL CDI. NO OOZING OVER NIGHT. HGB DROP. 1 UNIT PRBC'S ORDERED.
[2021-04-05 06:58] LABS: Hemoglobin 5.8 g/dL (13.5-17.5)
[2021-04-05 12:36] LABS: Hematocrit 21.8 % (37.0-53.0); Hemoglobin 6.8 g/dL (13.5-17.5)
--- NOTE | 2021-04-05 18:49 | NUR ---
0800 Pt recieved on bed AAOX4, on NC tolerating well. Pt able to move all extremities but extremely weak in lower extremities. [address] Wyman notified of low HG and Black/tarry stool. Orders reciceved. 2 units given pt tolerated well. 1600 Pt on clear and NPO status after midnight for possible GI scope. Pt afebrile, VSS and in no acute distress. Report given to BRIANNA Krause.
[2021-04-06 03:34] LABS: Hematocrit 21.6 % (37.0-53.0); Hemoglobin 6.8 g/dL (13.5-17.5); Mean Corpuscular HGB 29.3 pg (26.0-34.0); Mean Corpuscular HGB Conc 31.5 g/dL (31.5-36.5); Mean Corpuscular Volume 93 fL (80-100); Mean Platelet Volume 9.7 fL (9.1-12.4); NRBC ABSOLUTE 0.03 K/mm3 (0.00-0.02); NRBC Auto 0.2 /100 WBC (0.0-0.2); Platelet Count 225 K/mm3 (150-400); RDW Coefficient Variation 15.5 % (11.7-14.2); RDW Standard Deviation 51.1 fL (35.1-46.3); Red Blood Cell Count 2.32 M/mm3 (4.30-5.90); White Blood Cell Count 12.43 K/mm3 (4.00-11.30)
[2021-04-06 03:50] LABS: Albumin, Blood 1.8 g/dL (3.4-5.0); Anion Gap 7 mmol/L (6-16); Blood Urea Nitrogen 4 mg/dL (8-24); Bun/Creatinine Ratio 10.1 (12.0-20.0); CO2, Blood 23 mmol/L (21-32); Calcium, Blood 7.8 mg/dL (8.5-10.1); Chloride, Blood 109 mmol/L (98-108); Glomerular Filtration Rate >60 (60-); Glucose, Blood 101 mg/dL (70-99); Phosphorus, Blood 1.6 mg/dL (2.5-4.9); Potassium, Blood 3.3 mmol/L (3.5-5.5); Sodium, Blood 139 mmol/L (136-145)
--- NOTE | 2021-04-06 05:38 | NUR ---
SUMMARY NEURO- A/OX4. VALLES. WEAK BLE. CV. BP AND HR WNL PALPABLE PULSES X 4 RESP. WNL GI 1 BM OVER NIGHT. DARK BROWN / GREEN IN COLOR. NO RED/MAROON NOTED ON WIPES. MORE THAN 1L OUT PUT TONIGHT. XU AND CLEAR. SKIN NO CHANGES
[2021-04-06 05:44] LABS: BAND PERCENT MAN 1 % (0-8); BASOPHILS PERCENT MAN 0 % (0-2); EOSINOPHILS PERCENT MAN 0 % (0-6); LYMPHOCYTES ABSOLUTE MAN 0.74 K/mm3 (0.84-5.20); LYMPHOCYTES PERCENT MAN 6 % (21-46); METAMYELOCYTE ABSOLUTE MAN 0.12 K/mm3 (0.00-0.00); METAMYELOCYTE PERCENT MAN 1 % (0-0); MONOCYTES ABSOLUTE MAN 0.74 K/mm3 (0.16-1.47); MONOCYTES PERCENT MAN 6 % (4-13); MYELOCYTE ABSOLUTE MAN 0.12 K/mm3 (0.00-0.00); MYELOCYTE PERCENT MAN 1 % (0-0); NEUTROPHILS ABSOLUTE MAN 10.68 K/mm3 (1.96-9.15); SEG NEUTROPHILS PERCENT MAN 85 % (41-73); TOTAL CELLS COUNTED 100
--- NOTE | 2021-04-06 13:18 | NUR ---
Spiritual care visit conducted. Patient is lying in bed and alert. He tells me about the events of the weekend concerning his surgery on Tuesday and the problems that have persisted since. We talk about his fear of losing his spot at the rehabilitation center in [place] because of delays and his concerns about the possible scope being conducted today. He also shares about his lack of sleep due to noise and interruptions and how exhausted he is. I provide soft drapery counselor, a calming presence and prayer. Patient responds well and shows signs of greater peace. I will continue to remain available.
--- NOTE | 2021-04-06 14:00 | NUR ---
04/06/21 Anita Reyna History, Chart, Medications and Allergies reviewed before start of procedure.PATIENT DETERMINED TO BE ASA APPROPRIATE FOR PROPOFOL SEDATION PRIOR TO START OF PROCEDURE BY .MONITOR INTACT WITH CONTINUOUS PULSE OXIMETRY AND INTERMITTENT BP.3-LEAD EKG REVIEWED WITH PHYSICIAN PRIOR TO START OF PROCEDURE.O2 VIA POM INTACT THROUGHOUT SEDATION/PROCEDURE.
[2021-04-06 14:20] LABS: Hematocrit 24.3 % (37.0-53.0); Hemoglobin 7.8 g/dL (13.5-17.5)
--- NOTE | 2021-04-06 18:44 | NUR ---
0800 Pt recieved on bed AAOX4, afebrile, VSS on room air tolerating well. Pt able to move all extremities but very weak. Assessment done, no signs of bleeding noted, Bilateral Lower extremities incision site dressing drym, clean and intact. Pt remains NPO for pending procedure. 1400 Dr. Min completed GI procedure, no bleeding noted. Pt tolerated procedure well. Dr. Wyman notified. 1600 Pt family @ bedside updated on status of pt and plan of care. Spoke to Susanna regarding possible transfer to Rehab. 1800 Pt denies pain, and in no acute distress. Pt remains on Heparin; with Pharmacy monitoring PPT levels. Will monior pt until remainder of shift.
[2021-04-06 20:16] LABS: Hematocrit 24.8 % (37.0-53.0); Hemoglobin 7.8 g/dL (13.5-17.5)
[2021-04-07 01:12] LABS: BASOPHILS ABSOLUTE AUTO 0.05 K/mm3 (0.00-0.23); BASOPHILS PERCENT AUTO 0 % (0-2); EOSINOPHILS ABSOLUTE AUTO 0.79 K/mm3 (0.00-0.68); EOSINOPHILS PERCENT AUTO 7 % (0-6); Hematocrit 24.6 % (37.0-53.0); Hemoglobin 7.7 g/dL (13.5-17.5); IMMATURE GRAN ABSOLUTE AUTO 0.69 K/mm3 (0.00-0.10); IMMATURE GRAN PERCENT AUTO 6 % (0-1); LYMPHOCYTES ABSOLUTE AUTO 1.16 K/mm3 (0.84-5.20); LYMPHOCYTES PERCENT AUTO 10 % (21-46); MONOCYTES ABSOLUTE AUTO 0.75 K/mm3 (0.16-1.47); MONOCYTES PERCENT AUTO 6 % (4-13); Mean Corpuscular HGB 28.5 pg (26.0-34.0); Mean Corpuscular HGB Conc 31.3 g/dL (31.5-36.5); Mean Corpuscular Volume 91 fL (80-100); Mean Platelet Volume 9.1 fL (9.1-12.4); NEUTROPHILS ABSOLUTE AUTO 8.63 K/mm3 (1.96-9.15); NEUTROPHILS PERCENT AUTO 72 % (41-73); NRBC ABSOLUTE 0.07 K/mm3 (0.00-0.02); NRBC Auto 0.6 /100 WBC (0.0-0.2); Platelet Count 287 K/mm3 (150-400); RDW Coefficient Variation 16.3 % (11.7-14.2); RDW Standard Deviation 53.1 fL (35.1-46.3); White Blood Cell Count 12.07 K/mm3 (4.00-11.30)
[2021-04-07 01:30] LABS: Albumin, Blood 1.8 g/dL (3.4-5.0); Anion Gap 6 mmol/L (6-16); BAND PERCENT MAN 3 % (0-8); BASOPHILS PERCENT MAN 0 % (0-2); Blood Urea Nitrogen 5 mg/dL (8-24); Bun/Creatinine Ratio 11.3 (12.0-20.0); CO2, Blood 24 mmol/L (21-32); Chloride, Blood 112 mmol/L (98-108); Creatinine, Blood 0.44 mg/dL (0.60-1.20); EOSINOPHILS ABSOLUTE MAN 0.12 K/mm3 (0.00-0.68); EOSINOPHILS PERCENT MAN 1 % (0-6); Glomerular Filtration Rate >60 (60-); Glucose, Blood 100 mg/dL (70-99); LYMPHOCYTES ABSOLUTE MAN 0.48 K/mm3 (0.84-5.20); LYMPHOCYTES PERCENT MAN 4 % (21-46); METAMYELOCYTE ABSOLUTE MAN 0.48 K/mm3 (0.00-0.00); METAMYELOCYTE PERCENT MAN 4 % (0-0); MONOCYTES PERCENT MAN 5 % (4-13); NEUTROPHILS ABSOLUTE MAN 10.38 K/mm3 (1.96-9.15); Phosphorus, Blood 2.1 mg/dL (2.5-4.9); Potassium, Blood 3.4 mmol/L (3.5-5.5); SEG NEUTROPHILS PERCENT MAN 83 % (41-73); Sodium, Blood 142 mmol/L (136-145); TOTAL CELLS COUNTED 100
--- NOTE | 2021-04-07 06:06 | NUR ---
SUMMARY- nEURO- WNL CV- WNL RESP WNL GI WNL WNL SKIN, MILD BRUISING BEHIND LEFT KNEE. DRESSINGS CDI.
--- NOTE | 2021-04-07 15:32 | NUR ---
0800 Pt recieved on bed AAOX4, on RA tolearting well. Pt assessment done; Pt able to void, move all extremities, but is weak. SCDs on BLE, Heparin drip infusing through PICC line. 0900 Dr. Ling seen and assessed pt. Orders recieved. Pt incisional site dry, clean and intact. Brusing @ Left lower calf; Dr. Ling aware and seen site. 1000 Dr. Wyman seen and assessed pt. Orders recieved. [address]; pt tolerated. 1400 Heparin D/C and Aspirin/Eliquis given. PT and OT worked with pt; pt tolerated well. Pt had multiple BM and denies pain. Pt afebrile, VSS and in no acute distress. Family updated on status of pt. Will monitor pt until remaider of shift.
--- NOTE | 2021-04-07 15:53 | NUR ---
Spiritual care visit conducted. Patient immediately voices his frustration with having yet another delay in getting to the rehabilitation facility in [place]. Patient explains about how anxious he is to get out of the hospital and live in an environment where all the focus is on getting him stronger and moving on with his life. Cecy is present and also shares her heart ache in experiencing another set back. I provide anxiety containment, spiritual direction, activities in reframing how they see the latest events and prayer. Patient and Cecy state their appreciation for the visit and encouragement as they display evidence of increased peace in the process of recovery.
[2021-04-08 06:04] LABS: BASOPHILS ABSOLUTE AUTO 0.04 K/mm3 (0.00-0.23); BASOPHILS PERCENT AUTO 1 % (0-2); EOSINOPHILS ABSOLUTE AUTO 0.69 K/mm3 (0.00-0.68); EOSINOPHILS PERCENT AUTO 8 % (0-6); Hematocrit 25.1 % (37.0-53.0); Hemoglobin 7.8 g/dL (13.5-17.5); IMMATURE GRAN PERCENT AUTO 5 % (0-1); LYMPHOCYTES ABSOLUTE AUTO 0.97 K/mm3 (0.84-5.20); LYMPHOCYTES PERCENT AUTO 12 % (21-46); MONOCYTES ABSOLUTE AUTO 0.65 K/mm3 (0.16-1.47); MONOCYTES PERCENT AUTO 8 % (4-13); Mean Corpuscular HGB 28.9 pg (26.0-34.0); Mean Corpuscular HGB Conc 31.1 g/dL (31.5-36.5); Mean Corpuscular Volume 93 fL (80-100); Mean Platelet Volume 9.4 fL (9.1-12.4); NEUTROPHILS ABSOLUTE AUTO 5.71 K/mm3 (1.96-9.15); NEUTROPHILS PERCENT AUTO 67 % (41-73); NRBC ABSOLUTE 0.06 K/mm3 (0.00-0.02); NRBC Auto 0.7 /100 WBC (0.0-0.2); Platelet Count 333 K/mm3 (150-400); RDW Coefficient Variation 16.4 % (11.7-14.2); RDW Standard Deviation 54.7 fL (35.1-46.3); White Blood Cell Count 8.46 K/mm3 (4.00-11.30)
[2021-04-08 06:20] LABS: Anion Gap 7 mmol/L (6-16); Blood Urea Nitrogen 4 mg/dL (8-24); Bun/Creatinine Ratio 8.6 (12.0-20.0); CO2, Blood 25 mmol/L (21-32); Calcium, Blood 8.4 mg/dL (8.5-10.1); Chloride, Blood 110 mmol/L (98-108); Creatinine, Blood 0.46 mg/dL (0.60-1.20); Glomerular Filtration Rate >60 (60-); Glucose, Blood 87 mg/dL (70-99); Phosphorus, Blood 3.4 mg/dL (2.5-4.9); Potassium, Blood 3.2 mmol/L (3.5-5.5); Sodium, Blood 142 mmol/L (136-145)
--- NOTE | 2021-04-08 06:29 | NUR ---
SUMMARY NEURO, PT SLEPT MOST OF SHIFT. DID RECEIVE PRN MEDS FOR SLEEP AT START OF SHIFT. EASY TO WAKE. A/O X 4 AT 2000,0000, & 0400. VALLES, GETTING STRONGER. ABLE TO REPOSITION SELF. CV. NSR, BP WNL PALP PULSES X 4. RESP WNL ON ROOM AIR. GI, GOOD APETITE, NO BM TONIGHT, MULTIPLE IN LAST 3 SHIFTS. REFUSED BOWEL MEDS. GOOD UOP, USES URINAL. SKIN NO CHANGES. PICC AKASH FLUSHES AND DRAWS BLOOD
--- NOTE | 2021-04-08 17:59 | NUR ---
SHIFT SUMMARY PT ARRIVED FROM ICU VIA BED. HAND OFF REPORT WAS GIVEN AT BEDSIDE IN ICU. PT EXPRESSED NO CONCERNS OR C/O AT TIME OF HAND OFF OR ARRIVAL TO PCU. PT HAS BEEN RESTING WITH FAMILY MEMBER AT BEDSIDE SINCE ARRIVAL. PT HAS BILATERAL POPLITEAL SURGICAL SITES WITH SIGNIFICANT BRUISING, NONTENDER. PT C/O TINGLING IN BILATERAL FEET ON ASSESSMENT, BILATERAL PEDAL PULSES WERE PALPABLE AND STRONG, PT COULD IDENTIFY TOUCH BILATERALLY. MEDIAL ASPECT OF LEFT ANKLE HAS ACCESS SITE THAT IS WNL, COVERED WITH TEGADERM AND INTACT. VITAL SIGNS STABLE SINCE ARRIVAL, NO CHANGES TO PATIENT CONDITION.
--- NOTE | 2021-04-09 15:45 | NUR ---
Spiritual care visit conducted. Patient tells me about how positive he is feeling today due to his improved strength and mobility, certain body functions are beginning to work, the possiblility of going to rehabilitation in [place] and being moved to Medical floor. Patient also discusses his thoughts about his work, his christianity and his family. I provide companionship and prayer. Patient responds well and shows signs being encouraged in his oneyda.
--- NOTE | 2021-04-09 17:03 | NUR ---
SHIFT SUMMARY PT HAS BEEN RESTING IN BED. PT HAS BEEN UP TO THE COMMODE MULTIPLE TIMES TODAY. PT IS PUSHING THEIR OWN PHYSICAL LIMITS BEYOND WHAT THE CURRENT CONDITION ALLOWS FOR. PT HAS TO BE REMINDED OF PROPER TECHNIQUE AT EACH TRANSFER. PT IS PHYSICALLY TIRING FROM THERAPIES AND PIVOT TRANSFERS. ALL VITAL SIGNS HAVE BEEN STABLE, NO ACUTE CHANGES TO CONDITION, PT HAS VOICED NO C/O, DENIES PAIN AND SOB.
--- NOTE | 2021-04-10 05:26 | NUR ---
LYING IN LOW FOWLERS WITH EYES OPEN WHILE WATCHING TV. AAO X4, VALLES, FOLLOWS ALL COMMANDS. REMAINS WEAK AND SHAKY, BUT STATES IS IMPROVED FROM PREVIOUS DAYS. USING EXERCISE BANDS AT HOB AND BEDSIDE TABLE TO EXERCISE EXTREMITIES. ABLE TO STAND, PIVOT AND SIT AFTER A COUPLE OF STEPS ON BSC AND HAVE A SMALL HARD BM THAT FELL APART INTO FIRM NUGGETS IN THE BSC ARTEAGA. VOICED CONCERNS ABOUT HIS BPH AND ISSUES WITH NEEDING TO URINATE AND HAVE BM'S AT THE SAME TIME WHICH IS NOT HIS NORMAL. STATES HE WILL ASK THAT DR RUNS A BPH LEVEL TEST ON HIM. ENCOURAGED TO DRINK MORE WATER, URINE IS DARK. STATES THAT HE WILL. DENIES FURTHER NEEDS OR WANTS AT THIS TIME. SAFETY MEASURES IN PLACE. WILL CONTINUE TO MONITOR AND GIVE HANDOFF TO ONCOMING SHIFT USING SBAR DURING BEDSIDE REPORT.
--- NOTE | 2021-04-10 11:04 | NUR ---
PATIENT ALERT AND ORIENTED X4. OVERALL WEAKNESS/SHAKY. BILATERAL TATTOO AND BODY ARTIST STRENGTH. PERRLA. CLAIMS SOME N/T TO LEFT LOWER LEG. VITAL SIGNS STABLE. PPP. ON ROOM AIR SATING MID 90'S. SKIN ACCESS SITES WNL, R NECK AND L ANKLE. PT AND OT WORKING WITH PATIENT. COVID SWAB DONE THIS AM. UP IN RECLINER FOR MEALS. TOLERATING FOOD WELL. TRACH SITE HEALING. 2 PERSON ASSIST. CALL LIGHT IN REACH. WILL CONTINUE TO MONITOR.
[2021-04-10 11:23] LABS: SARS-Cov-2 (COVID-19) PCR, MMC NEGATIVE (NEGATIVE)
--- NOTE | 2021-04-10 13:22 | NUR ---
TRANSFER: REPORT HANDED OFF TO MEDICAL FLOOR NURSE. PATIENT LEFT UNIT VIA WHEELCHAIR WITH ALL PERSONAL BELONGINGS. NO ACUTE CHANGES, SEE PREVIOUS NOTE.
[2021-04-10 15:04] LABS: Source, Urine Clean Catch
[2021-04-10 15:25] LABS: Appearance, Urine Clear (Clear); Bilirubin, Urine Neg (Neg); Blood, Urine Neg (Neg); Color, Urine Yellow (P-Yellow); Glucose Qualitative, Urine Neg (Neg); Ketones, Urine Neg (Neg); Leukocyte Esterase, Urine 3+ (Neg); Nitrite, Urine Neg (Neg); Protein, Urine Neg (Neg); Specific Gravity, Urine 1.015 (1.003-1.022); Urobilinogen, Urine NORM (Normal)
[2021-04-10 15:52] LABS: Red Blood Cells, Urine 0-2 /hpf (0-2); White Blood Cells, Urine 25-50 /hpf (0-5)
[2021-04-10 15:53] LABS: Squamous Epithelial Cells Rare /hpf (Few)
[2021-04-10 15:54] LABS: Bacteria Rare /hpf
--- NOTE | 2021-04-10 16:18 | NUR ---
SHIFT SUMMARY PT IS AOX4 AND PLEASANT. PT DENIES PAIN, N/V, SOB. PT TRANSFERRED TO UNIT FROM PCU. PT APPETITE IS GOOD. PT VOIDING REGULARLY. PT IS ON RA WITH SATS GREATER THAN 90%. PT'S IN TO VISIT THIS TIGRE. PT IS 1-2 ASSIST IN ROOM FOR TRANSFERS AND WORKS WITH PT/OT. PT IS IN BED, CALL LIGHT IN REACH, LOW POSITION.
--- NOTE | 2021-04-11 05:52 | NUR ---
VSS. NO C/O PAIN. AOX4. SLEPT FOR MAJORITY OF SHIFT. NO ACUTE ISSUES NOTED. SAFETY MEASURES IN PLACE, CALL LIGHT IN REACH
--- NOTE | 2021-04-11 18:09 | NUR ---
SHIFT SUMMARY PT IS AOX4 AND PLEASANT. PT DENIES PAIN, N/V, SOB. PT WORKED WITH OT AND IS ONE ASSIST FOR TRANSFERS. PT'S IN TO VISIT THIS TIGRE. PT C/O MINIMAL VOIDING AND THIS RN PERFORMED BLADDER SCAN PER PHYSICIAN ORDERS. PT CONTINUE TO VOID. PLAN IS FOR DC TOMORROW FOR IRU ON TUESDAY. PT APPETITE IS GOOD. PT IS IN BED, CALL LIGHT IN REACH, LOW POSITION.
--- NOTE | 2021-04-12 01:17 | NUR ---
GLUELINE WORKER REC CALL FROM C DEVELOPER @ 2026 TO COME TO PT'S ROOM. PT C/O SOB, WITH LABORED, RAPID BREATHING AND VISIBLE TREMORS. VS TAKEN T 98.4, R 22, BP 117/68 AND O2 @ 100%. POC BG 112. NO C/0 PAIN. NO C/O OF NUMBNESS. PER PT HE HAS OCASSIONAL TREMORS. NO OTHER ACUTE ISSUES NOTED. PAGED HOPSITALIST WHO CAME AND ASSESSED PT AT BEDSIDE. ORDER ENTERED FOR STAT PORTABLE CXR, 1000ML SODIUM CHLORIDE.
--- NOTE | 2021-04-12 06:32 | NUR ---
VSS. PT AOX4, ABLE TO VERABALIZE NEEDS. OTHER THAN PREVIOUSLY CHARTED INCIDENT NO ACUTE EVENT OCCURRED. NO C/O PAIN.NO REPORT OF SOB. IV FLUIDS CURRENTLY INFUSING. SAFTEY MEASURES IN PLACE CALL LIGHT IN REACH
--- NOTE | 2021-04-12 18:09 | NUR ---
SHIFT SUMMARY: PT A/O STANDBY ASSIST WITH WALKER TO BATHROOM, PLEASANT AND COOPERATIVE WITH CARE. PT HAD NO ADVERSE EVENTS TODAY. DRESSINGS TO POSTERIOR KNEES AND LEFT ANKLE REMOVED. SUTURES REMAIN IN SITES BEHIND KNEES. SUTURE TO L ANKLE SITE GONE AND SITE IS HEALED. SITES BEHIND KNEES CLOSED WITH PINK AREA, NO DRAINAGE NOTED. SITES CLEANSED WITH WOUND CLEANSER AND NATHANIEL. PT HAS HAD NO ACUTE CHANGES T/OUT THE DAY TODAY. PT WAS A BIT UNSTEADY WHEN AMBULATING TO BATHROOM BU ABLE TO MAKE IT ON HIS OWN WITH WALKER.
--- NOTE | 2021-04-13 05:33 | NUR ---
VSS. PT AOX4, ABLE TO VERABLIZE NEEDS. NO ACUTE EVENTS NOTED. HE HAS SLEPT FOR MOST OF THE NIGHT, VOIDING IN URINAL WITH NO ISSUES. CALL LIGHT IN REACH, BED IN LOWEST POSITION
[2021-04-13] MEDS ORDERED: ACET325UDC PO (08:02)
[2021-04-13] MEDS ORDERED: DOCU100 PO (08:03)
[2021-04-13] MEDS ORDERED: ASPI81CH PO (08:03)
[2021-04-13] MEDS ORDERED: ELIQUIS5 M2 PO (08:03)
[2021-04-13] MEDS ORDERED: MELA3 PO (08:04)
[2021-04-13] MEDS ORDERED: METO50 PO (08:05)
[2021-04-13] MEDS ORDERED: MIRT15 PO (08:06)
[2021-04-13] MEDS ORDERED: ONDA4 PO (08:06)
[2021-04-13] MEDS ORDERED: VITAMIN D31000 UNI1 PO (08:07)
[2021-04-13 08:57] LABS: SARS-Cov-2 (COVID-19) PCR, MMC NEGATIVE (NEGATIVE)
--- NOTE | 2021-04-13 10:29 | NUR ---
REPORT GIVEN TO ANGELA REED AT [facility] FOR DISCHARGE. PICC LINE HAS BEEN REMOVED AND PT TOLERATING WELL WITH NO S/S OF BLEEDING AT THIS TIME.
--- NOTE | 2021-04-13 11:06 | NUR ---
DISCHARGE SUMMARY: PT DISCHARGED TO [facility] TODAY. PT ASSISTED WITH DRESSING. BELONGINGS PACKED UP AND PT TRANSPORTED VIA AMBULANCE TO [facility].
== END 2021-04-13 11:05 | DRG 3 ==
LOC: ER 11:54 → MEDS 16:26 → PCU 16:26 → ICUE 16:26 → ICUW 16:26 → MEDS 18:01 → PCU 02-14 03:59 → ICUE 02-14 10:35 → PCU 03-14 15:50 → MEDS 03-20 22:00 → ICUW 04-03 17:08 → PCU 04-08 16:27 → MEDS 04-10 13:35
PROVIDERS: Family Medicine; Internal Medicine; Internal Medicine Critical Care Medicine; Internal Medicine Gastroenterology; Pharmacist; Student in an Organized Health Care Education/Training Program; ADMIT Family Medicine
PROC: 5A09457 Assistance with Respiratory Ventilation, 24-96 Consecutive Hours, Continuous Positive Airway Pressure (ICD-10-PCS; 2021-02-10)
PROC: 8E0ZXY6 Isolation (ICD-10-PCS; 2021-02-10)
PROC: XW033E5 Introduction of Remdesivir Anti-infective into Peripheral Vein, Percutaneous Approach, New Technology Group 5 (ICD-10-PCS; 2021-02-11)
PROC: 5A1955Z Respiratory Ventilation, Greater than 96 Consecutive Hours (ICD-10-PCS; 2021-02-14)
PROC: 0BH18EZ Insertion of Endotracheal Airway into Trachea, Via Natural or Artificial Opening Endoscopic (ICD-10-PCS; 2021-02-14)
PROC: 02HV33Z Insertion of Infusion Device into Superior Vena Cava, Percutaneous Approach (ICD-10-PCS; 2021-02-14)
PROC: 06H03DZ Insertion of Intraluminal Device into Inferior Vena Cava, Percutaneous Approach (ICD-10-PCS; 2021-02-14)
PROC: 05HM33Z Insertion of Infusion Device into Right Internal Jugular Vein, Percutaneous Approach (ICD-10-PCS; 2021-02-14)
PROC: 3E043XZ Introduction of Vasopressor into Central Vein, Percutaneous Approach (ICD-10-PCS; 2021-02-21)
PROC: 0B113F4 Bypass Trachea to Cutaneous with Tracheostomy Device, Percutaneous Approach (ICD-10-PCS; principal; 2021-02-28)
PROC: 0DJ08ZZ Inspection of Upper Intestinal Tract, Via Natural or Artificial Opening Endoscopic (ICD-10-PCS; 2021-03-05)
PROC: 3E0G76Z Introduction of Nutritional Substance into Upper GI, Via Natural or Artificial Opening (ICD-10-PCS; 2021-03-10)
PROC: 0W3P8ZZ Control Bleeding in Gastrointestinal Tract, Via Natural or Artificial Opening Endoscopic (ICD-10-PCS; 2021-03-11)
PROC: 0DB68ZX Excision of Stomach, Via Natural or Artificial Opening Endoscopic, Diagnostic (ICD-10-PCS; 2021-03-11)
PROC: 06CD3ZZ Extirpation of Matter from Left Common Iliac Vein, Percutaneous Approach (ICD-10-PCS; 2021-04-01)
PROC: 06CC3ZZ Extirpation of Matter from Right Common Iliac Vein, Percutaneous Approach (ICD-10-PCS; 2021-04-01)
PROC: 06CN3ZZ Extirpation of Matter from Left Femoral Vein, Percutaneous Approach (ICD-10-PCS; 2021-04-01)
PROC: 06CM3ZZ Extirpation of Matter from Right Femoral Vein, Percutaneous Approach (ICD-10-PCS; 2021-04-01)
PROC: 06CY3ZZ Extirpation of Matter from Lower Vein, Percutaneous Approach (ICD-10-PCS; 2021-04-01)
PROC: 06CG3ZZ Extirpation of Matter from Left External Iliac Vein, Percutaneous Approach (ICD-10-PCS; 2021-04-01)
PROC: 06CF3ZZ Extirpation of Matter from Right External Iliac Vein, Percutaneous Approach (ICD-10-PCS; 2021-04-01)
PROC: 30233N1 Transfusion of Nonautologous Red Blood Cells into Peripheral Vein, Percutaneous Approach (ICD-10-PCS; 2021-04-04)
PROC: 0DJ08ZZ Inspection of Upper Intestinal Tract, Via Natural or Artificial Opening Endoscopic (ICD-10-PCS; 2021-04-06)
PROC: X2CY3T7 Extirpation of Matter from Great Vessel using Computer-aided Mechanical Aspiration, Percutaneous Approach, New Technology Group 7 (ICD-10-PCS; 2021-04-11)
PROC: X2CV3T7 Extirpation of Matter from Left Lower Extremity Vein using Computer-aided Mechanical Aspiration, Percutaneous Approach, New Technology Group 7 (ICD-10-PCS; 2021-04-11)
PROC: 067D3DZ Dilation of Left Common Iliac Vein with Intraluminal Device, Percutaneous Approach (ICD-10-PCS; 2021-04-11)
PROC: 067C3DZ Dilation of Right Common Iliac Vein with Intraluminal Device, Percutaneous Approach (ICD-10-PCS; 2021-04-11)
PROC: 067G3DZ Dilation of Left External Iliac Vein with Intraluminal Device, Percutaneous Approach (ICD-10-PCS; 2021-04-11)
PROC: 067F3DZ Dilation of Right External Iliac Vein with Intraluminal Device, Percutaneous Approach (ICD-10-PCS; 2021-04-11)
PROC: 06703DZ Dilation of Inferior Vena Cava with Intraluminal Device, Percutaneous Approach (ICD-10-PCS; 2021-04-11)
PROC: 067Y3ZZ Dilation of Lower Vein, Percutaneous Approach (ICD-10-PCS; 2021-04-11)
PROC: 067N3ZZ Dilation of Left Femoral Vein, Percutaneous Approach (ICD-10-PCS; 2021-04-11)
PROC: 3E0333Z Introduction of Anti-inflammatory into Peripheral Vein, Percutaneous Approach (ICD-10-PCS; 2021-04-11)
PROC: 3E03317 Introduction of Other Thrombolytic into Peripheral Vein, Percutaneous Approach (ICD-10-PCS; 2021-04-11)
DX: U07.1 COVID-19 (principal); J96.01 Acute respiratory failure with hypoxia; J12.82 Pneumonia due to coronavirus disease 2019; G92.8 Other toxic encephalopathy; I26.99 Other pulmonary embolism without acute cor pulmonale; R65.20 Severe sepsis without septic shock; A41.89 Other specified sepsis; J15.1 Pneumonia due to Pseudomonas; A40.1 Sepsis due to streptococcus, group B; J15.29 Pneumonia due to other staphylococcus; A41.1 Sepsis due to other specified staphylococcus; A41.52 Sepsis due to Pseudomonas; K26.4 Chronic or unspecified duodenal ulcer with hemorrhage; E87.1 Hypo-osmolality and hyponatremia; Z68.41 Body mass index [BMI] 40.0-44.9, adult; E87.0 Hyperosmolality and hypernatremia; D62 Acute posthemorrhagic anemia; K52.1 Toxic gastroenteritis and colitis; G62.81 Critical illness polyneuropathy; I87.1 Compression of vein; I82.453 Acute embolism and thrombosis of peroneal vein, bilateral; I82.413 Acute embolism and thrombosis of femoral vein, bilateral; T82.868A Thrombosis due to vascular prosthetic devices, implants and grafts, initial encounter; I82.423 Acute embolism and thrombosis of iliac vein, bilateral; I10 Essential (primary) hypertension; E03.9 Hypothyroidism, unspecified; G47.30 Sleep apnea, unspecified; R13.10 Dysphagia, unspecified; N40.0 Benign prostatic hyperplasia without lower urinary tract symptoms; E66.01 Morbid (severe) obesity due to excess calories; K21.9 Gastro-esophageal reflux disease without esophagitis; G47.00 Insomnia, unspecified; E86.0 Dehydration; F41.9 Anxiety disorder, unspecified; E87.70 Fluid overload, unspecified; R45.1 Restlessness and agitation; E87.6 Hypokalemia; Y95 Nosocomial condition; D72.829 Elevated white blood cell count, unspecified; E83.39 Other disorders of phosphorus metabolism; Y92.239 Unspecified place in hospital as the place of occurrence of the external cause; T50.905A Adverse effect of unspecified drugs, medicaments and biological substances, initial encounter; R73.9 Hyperglycemia, unspecified; T38.0X5A Adverse effect of glucocorticoids and synthetic analogues, initial encounter; Z98.890 Other specified postprocedural states; Z79.899 Other long term (current) drug therapy; Y83.8 Other surgical procedures as the cause of abnormal reaction of the patient, or of later complication, without mention of misadventure at the time of the procedure
CPT/HCPCS: 31500; 31502; 31720; 36415; 36430; 36556; 36569; 36600; 37187; 37191; 70450; 71045; 71260; 74018; 74177; 74230; 75822; 75825; 76937; 80048; 80053; 80069; 80076; 80202; 81001; 81003; 82248; 82272; 82728; 82785; 82803; 82947; 83540; 83550; 83735; 83880; 84100; 84132; 84145; 84478; 84484; 85014; 85018; 85025; 85027; 85049; 85347; 85379; 85384; 85610; 85730; 86003; 86140; 86606; 86682; 86850; 86900; 86901; 86923; 87040; 87070; 87077; 87086; 87102; 87147; 87186; 87205; 87305; 88108; 88305; 88312; 88342; 92507; 92526; 92597-GN; 92610; 92611; 92978; 92979; 93005; 93010; 93306; 93970; 93971; 94002; 94003; 94640; 94660; 94667; 94760; 94762; 97110; 97112; 97116; 97162; 97166; 97530; 97535; 99152; 99153; 99285-25; A9270; C1725; C1751; C1753; C1757; C1769; C1773; C1876; C1880; C1887; C1894; C9113; J0171; J0282; J0360; J0690; J0713; J1100; J1170; J1450; J1644; J1650; J1940; J2060; J2250; J2270; J2405; J2543; J2704; J2920; J2930; J2997; J3010; J3370; J3480; J7030; J7040; J7050; J7060; J7120; J7512; P9016; Q9967; U0004

== ENCOUNTER → 2021-05-19 | Outpatient (CLI) | payer BC ==
[~2021-05-19] MED LIST changes: +ACET325UDC PO; +ASPI81CH PO; +DOCU100 PO; +ELIQUIS5 M2 PO; +Flomax0.4 MG PO; +LEVSOD75 PO; +LOSARTAN-HCTZ1 EAC5 PO; +MELA3 PO; +METO50 PO; +MIRT15 PO; +ONDA4 PO; +VITAMIN D31000 UNI1 PO
[2021-05-19 10:01] LABS: BASOPHILS ABSOLUTE AUTO 0.04 K/mm3 (0.00-0.23); BASOPHILS PERCENT AUTO 1 % (0-2); EOSINOPHILS ABSOLUTE AUTO 0.42 K/mm3 (0.00-0.68); EOSINOPHILS PERCENT AUTO 6 % (0-6); Hematocrit 34.2 % (37.0-53.0); Hemoglobin 10.1 g/dL (13.5-17.5); IMMATURE GRAN ABSOLUTE AUTO 0.04 K/mm3 (0.00-0.10); IMMATURE GRAN PERCENT AUTO 1 % (0-1); LYMPHOCYTES ABSOLUTE AUTO 0.94 K/mm3 (0.84-5.20); LYMPHOCYTES PERCENT AUTO 13 % (21-46); MONOCYTES ABSOLUTE AUTO 0.72 K/mm3 (0.16-1.47); MONOCYTES PERCENT AUTO 10 % (4-13); Mean Corpuscular HGB 24.5 pg (26.0-34.0); Mean Corpuscular HGB Conc 29.5 g/dL (31.5-36.5); Mean Corpuscular Volume 83 fL (80-100); NEUTROPHILS PERCENT AUTO 70 % (41-73); Platelet Count 424 K/mm3 (150-400); RDW Coefficient Variation 15.8 % (11.7-14.2); RDW Standard Deviation 48.3 fL (35.1-46.3); Red Blood Cell Count 4.13 M/mm3 (4.30-5.90); White Blood Cell Count 7.16 K/mm3 (4.00-11.30)
[2021-05-19 10:30] LABS: Alanine Aminotransfer (ALT/SGP 20 U/L (12-78); Albumin, Blood 3.6 g/dL (3.4-5.0); Albumin/Globulin Ratio 1.1 (0.8-1.8); Alk Phos 80 U/L (40-126); Anion Gap 9 mmol/L (6-16); Aspartate Aminotrans (AST/SGOT 12 U/L (12-37); Bilirubin, Total 0.2 mg/dL (0.1-1.0); Blood Urea Nitrogen 12 mg/dL (8-24); Bun/Creatinine Ratio 21.8 (12.0-20.0); CO2, Blood 27 mmol/L (21-32); Calcium, Blood 9.5 mg/dL (8.5-10.1); Chloride, Blood 108 mmol/L (98-108); Creatinine, Blood 0.55 mg/dL (0.60-1.20); Globulin, Blood 3.2 g/dL (2.2-4.0); Glomerular Filtration Rate >60 (60-); Glucose, Blood 108 mg/dL (70-99); Phosphorus, Blood 3.4 mg/dL (2.5-4.9); Sodium, Blood 144 mmol/L (136-145); Thyroid Stimulating Hormone 2.409 uIU/mL (0.360-4.800); Total Protein, Blood 6.8 g/dL (6.4-8.2)
== END | disposition home or self-care (01) ==
LOC: LAB SHORT 09:57 → LAB 09:57
PROVIDERS: Family Medicine
DX: M62.81 Muscle weakness (generalized) (principal); K26.4 Chronic or unspecified duodenal ulcer with hemorrhage; E03.9 Hypothyroidism, unspecified
CPT/HCPCS: 80053; 84100; 84443; 85025